=== PATIENT | female | born 1945 | race African-American/Black ===

== ENCOUNTER 2017-06-12 06:08 | Day surgery (SDC) | payer MEDICARE ==
[2017-06-11 11:18] VITALS: BMI 29.2
--- NOTE | 2017-06-12 06:17 | HP ---
SHORT STAY HISTORY AND PHYSICAL DATE OF ADMISSION: 06/12/2017 HISTORY OF PRESENT ILLNESS: A 71-year-old -[place] female with chronic GI symptoms. She comes with abdominal pain, abdominal bloating, and swelling. The patient's symptoms are worse after meals and lasts for several hours. Symptoms appear any time she eats. She has no history of nausea or vomiting. She has been taking pantoprazole and simethicone. However, the symptoms were unresolved. She recently started taking Dexilant. The patient comes for an EGD because of chronic dyspepsia, abdominal discomfort. ALLERGIES: None. MEDICAL ILLNESSES: 1. Hypertension. 2. Osteoarthritis. 3. Discoid lupus. 4. Chronic acid reflux. 5. Osteoporosis. PHYSICAL EXAMINATION: VITAL SIGNS: Pulse is 70, blood pressure 130/70. HEENT: Conjunctivae clear. CARDIOVASCULAR: First and second heart sounds normal. LUNGS: Clear to auscultation. ABDOMEN: Soft to palpate. Abdomen is tender over the epigastric area. There is no rebound or guarding. EXTREMITIES: Reveal no edema. ADMITTING DIAGNOSES: Chronic dyspepsia, abdominal discomfort. PLAN: EGD. MTDD
[2017-06-12] MEDS ORDERED: Lidocaine 1% PF 5 ML VIAL ONE (08:22)
--- NOTE | 2017-06-12 17:08 | OP ---
DATE OF PROCEDURE: 06/12/2017 OPERATIVE PROCEDURE: Esophagogastroduodenoscopy with biopsy. PREOPERATIVE DIAGNOSIS: A 71-year-old female with abdominal discomfort, abdominal bloating and swelling. This happens usually after meals. She has had these symptoms for the last s everal months. The patient is undergoing upper GI endoscopy. POSTOPERATIVE DIAGNOSES: 1. Gastric ulcer x2 over the gastric antrum with gastritis. 2. Gastric erosions. Otherwise, the exam was normal. PROCEDURE IN DETAIL: The patient was placed on her left lateral position and was given sedation by Anesthesia Department. A Pentax video gastroscope under direct vision was passed down the oropharyn x, past the gastroesophageal junction, into the stomach, and subsequently into the descending duoden um. The esophageal mucosa appeared normal. The GE junction, no pathology seen. The fundus and car maliha, no pathology seen. Over the gastric antrum, the patient was found to have gastric erosions, ga stritis, and also 2 ulcerations. The incisura angularis, no pathology seen. The gastric body, no l esions. The retroflexion failed to show any lesions in the fundus and cardia. The duodenal bulb, d escending duodenum, no pathology seen. Random biopsies from the descending duodenum to rule out lucia iac disease. The stomach was decompressed and the scope removed. DISCHARGE PLANNING: This is a 71-year-old female who came for the EGD because of c hronic dyspepsia and abdominal pain. The patient underwent EGD and was found to have gastric ulcer and gastritis. DISCHARGE RECOMMENDATIONS: 1. Start the patient on omeprazole 40 once a day. 2. Await gastric biopsy and the biopsy shows Helicobacter, treat accordingly.
== END 2017-06-12 09:30 | disposition home or self-care (01) ==
LOC: SDC 06:08
PROVIDERS: ATTEND Internal Medicine Gastroenterology
PROC: 0DB98ZX Excision of Duodenum, Via Natural or Artificial Opening Endoscopic, Diagnostic (ICD-10-PCS; principal; 2017-06-12)
DX: K29.50 Unspecified chronic gastritis without bleeding (principal); I10 Essential (primary) hypertension; M19.90 Unspecified osteoarthritis, unspecified site; M81.0 Age-related osteoporosis without current pathological fracture; K21.9 Gastro-esophageal reflux disease without esophagitis; L93.0 Discoid lupus erythematosus; Z79.899 Other long term (current) drug therapy; Z90.710 Acquired absence of both cervix and uterus; Z98.42 Cataract extraction status, left eye; Z98.41 Cataract extraction status, right eye; Z98.890 Other specified postprocedural states
CPT/HCPCS: 88305; 88312; J2001

== ENCOUNTER 2019-06-09 16:39 | Inpatient (IN) | payer MEDICARE ==
[~2019-06-09 16:39] MED LIST: ISOVUE-370 76%-LOCM 1 ML ONE
[2019-06-09 17:08] LABS: PTT 28.5 SEC (22.9-36.1)
[2019-06-09 17:09] LABS: INR-International Normal Ratio 1.1; Prothrombin Time 14.5 SEC (12.0-14.7)
[2019-06-09 17:14] LABS: Hemoglobin 15.7 g/dL (12.0-16.0); Mean Corpuscular HGB CONC 33.3 g/dL (32.0-36.0); Mean Corpuscular Hemoglobin 26.2 pg (27.0-31.0); Mean Corpuscular Volume 78.5 fL (78.0-98.0); Mean Platelet Volume 7.6 fL (7.4-10.4); Platelet Count 281 thou/uL (130-400); RBC Distribution Width 14.1 % (11.5-14.5)
[2019-06-09 17:25] LABS: ALT (SGPT) 30 U/L (8-55); AST (SGOT) 41 U/L (5-34); Albumin 4.7 g/dL (3.4-4.8); Alkaline Phosphatase 24 U/L (40-110); Anion Gap 17 mmol/L (10-20); BUN (Urea Nitrogen) 19 mg/dL (9.8-20.1); Bilirubin, Total 1.4 mg/dL (0.2-1.2); CK (CPK) 609 U/L (29-168); Calc. Creatinine Clearance 0 mL/min (70-130); Calcium 10.6 mg/dL (7.8-10.44); Carbon Dioxide 23 mmol/L (23-31); Chloride 102 mmol/L (98-107); Estimated GFR-MDRD 46; Globulin 2.8 g/dL (2.4-3.5); Glucose 89 mg/dL (83-110); Potassium 4.9 mmol/L (3.5-5.1); Protein, Total 7.5 g/dL (6.0-8.3); Sodium 137 mmol/L (136-145)
[2019-06-09 17:42] LABS: #Lymphocytes 1.4 thou/uL (1.20-3.40); #Monocytes 0.5 thou/uL (0.11-0.59); #Neutrophils 5.8 thou/uL (1.40-6.50); %Basophils 0.5 % (0.0-1.0); %Eosinophils 0.4 % (0.0-10.0); %Lymphocytes 17.7 % (21.0-51.0); %Monocytes 6.3 % (0.0-10.0); %Neutrophils 75.1 % (42.0-75.0); Band 1 % (5-11); Hypochromia SLIGHT = 6-15 cells (100X) (0-5/hpf); Lymphocytes 6 % (21-51); MDiff Complete? YES; Monocytes 5 % (0-10); Neutrophil 87 % (42-75); Platelet Morphology Comment Appears Adequate; Target Cells SLIGHT = 2-5 cells (100X) (0-1/hpf); White Blood Cell (WBC) Count 7.7 thou/uL (4.8-10.8)
[2019-06-09 17:52] LABS: Cardiac Risk 2.4 (Less than 4.5); Magnesium 2.1 mg/dL (1.6-2.6)
--- NOTE | 2019-06-09 17:54 | CT ---
CT HEAD WITHOUT CONTRAST: INDICATIONS: Stroke alert. Aphasia. Left-sided facial droop. COMPARISON: None. FINDINGS: The ventricles have normal size and position. There is abnormal lucency in the right basal ganglia involving the lentiform nucleus. This may repres ent acute or subacute lacunar infarct involving the right basal ganglia. There is no evidence of acute cortical infarct. There is no mass or hemorrhage. Sinuses and mastoids are clear. IMPRESSION: Abnormal lucency in the right basal ganglia concerning for acute or subacute basal ganglia infarct. Findings relayed to ER physician at 4:51 p.m. CODE DAVE POS: [facility]
[2019-06-09] MEDS ORDERED: Aspirin Chewable 81 MG TAB ONE (18:01)
--- NOTE | 2019-06-09 18:04 | CT ---
CTA HEAD: INDICATIONS: Stroke alert. Left-sided facial droop and aphasia. TECHNIQUE: Axial tomograms obtained with multiplanar reconstruction and 3D post processing following a CT angio protocol. FINDINGS: The intracranial internal carotid arteries are patent and symmetric. The anterior cerebral arteries a re patent and symmetric. The middle cerebral arteries are patent and symmetric. M2 and M3 branches ap pear symmetric. The basilar artery is patent. The posterior cerebral arteries appear symmetric. IMPRESSION: Unremarkable CTA head. CTA NECK: INDICATIONS: Stroke alert. Aphasia. Left facial droop. TECHNIQUE: Axial tomograms obtained with multiplanar reconstruction and 3D post processing. FINDINGS: No evidence of stenosis at the origin of the arch vessels. Both common carotid arteries are patent an d symmetric. Mild atherosclerotic change seen at the bulbs however no evidence of stenosis involving either exercise science internship al carotid artery. Vertebral arteries are patent and symmetric. IMPRESSION: Unremarkable CTA neck. POS: [facility]
--- NOTE | 2019-06-09 18:56 | RAD ---
PORTABLE CHEST: HISTORY: Fall. FINDINGS: The lungs appear clear. No infiltrate. The heart is mildly prominent but stable. IMPRESSION: No acute process. POS: [facility]
[2019-06-09 18:57] LABS: CKMB 4.6 ng/mL (0-6.6)
[2019-06-09] MEDS ORDERED: Carvedilol 3.125 MG TAB PO SCH (22:00)
[2019-06-09] MEDS ORDERED: Acetaminophen 325 MG TAB PO PRN (22:14)
[2019-06-09] MEDS ORDERED: Senokot S 8.6-50 MG TAB PO PRN (22:14)
[2019-06-09 23:59] LABS: Troponin I 0.276 ng/mL (< 0.028)
[2019-06-10] MEDS: Sodium Chloride 0.9% 1,000 ML IV SCH (01:42)
[2019-06-10 02:03] VITALS: BMI 27.6
--- NOTE | 2019-06-10 02:24 | HP ---
CHIEF COMPLAINT: Left-sided weakness and slurred speech. HISTORY OF PRESENT ILLNESS: The patient is a very pleasant 73-year-old female with a history of discoid lupus, also has a history of hypertension, who presents to the hospital with complaints of weakness to her left side and slurred speech x1 day. The patient stated that she woke up this morning, felt strange, felt unwell. When she tried to get up out of the bed, she fell on the floor. She states that she did hit her head on the table when she fell. She stated that throughout the day she tried to get herself up, however, she was unable to do so and kept falling multiple times. She stated that she did not feel the urge to call anybody. However, when her was unable to reach her after multiple calls, he asked someone to check in on her. At this time, the patient was found down on the floor. The patient's drove back 2 hours since he was out of town and then brought her into the hospital. PAST MEDICAL HISTORY: 1. She has a history of heart failure. 2. Mitral and tricuspid valve regurgitation. 3. She has a history of discoid lupus. 4. History of hypertension. PAST SURGICAL HISTORY: She had a hysterectomy, oophorectomy, bilateral cataract, left knee replacement, left rotator cuff repair x2, cholecystectomy. SOCIAL HISTORY: She denies any alcohol use or drug use. She currently is a full code. Lives with her . She is a former smoker, quit many years ago. REVIEW OF SYSTEMS: All negative except for the ones mentioned above in the HPI. ALLERGIES: NO KNOWN DRUG ALLERGIES. MEDICATIONS: She takes: 1. Lasix 40 mg daily. 2. Carvedilol 3.125 daily. 3. Spironolactone 50 mg daily. 4. Aspirin 81 mg daily. 5. Zyrtec 10 mg daily. 6. Plaquenil 200 mg. PHYSICAL EXAMINATION: VITAL SIGNS: Temperature 98.8, pulse of 88, blood pressure 137/89, 100% on room air. GENERAL: She is awake, alert, and oriented x3. Does not appear in any distress. HEENT: Normocephalic, atraumatic. No lymphadenopathy noted. Pupils are equal and reactive to light. CV: S1 and S2 present. No murmurs, rubs, or gallops. LUNGS: Clear to auscultation. No rhonchi or wheezes noted. ABDOMEN: Soft and nontender. Bowel sounds present x2. EXTREMITIES: 1+ edema to bilateral lower extremity. NEUROVASCULAR: She does have weakness on the left upper extremity and left lower extremity. She does have a tongue deviation to her left side. She does have a gaze to her right. SKIN: No cuts, lesions, or bruises noted. LABORATORY RESULTS: She did have a CT brain, which indicated abnormal lucency in the right basal ganglia concerning for acute or subacute basal ganglia infarct. Also, she had a CTA which did not indicate any acute findings that were for intervention. ASSESSMENT AND PLAN: The patient is a 73-year-old female who presents to the hospital with complaints of left-sided weakness and also slurred speech. 1. Acute stroke. We will get an MRI, but the patient does have knee replacement. I am not sure if that is compatible with MRI. We will continue her aspirin and we will add Plavix and also start her on statin. We will check a lipid panel in the morning. We will also get an echocardiogram and also consult Neurology. The patient has been educated that if this happens ever in the future to call 911. The patient thought that her symptoms would get better, however, they did not. 2. Hypertension. We will continue home medications. 3. Discoid lupus. We will continue her Plaquenil. 4. DVT prophylaxis. We will put the patient on enoxaparin. 5. Mildly elevated troponins. This could be secondary due to her stroke. We will continue to trend them. If they continue to worsen, may consult Cardiology. 6. Hypercalcemia. It could be possibly due to dehydration. We will continue to monitor and start her on some gentle hydration. 7. Chronic kidney disease stage 3. We will continue to monitor. 8. She does have an elevated CK. I will continue the hydration and we will check CK in the morning. Job ID: [id number]
[2019-06-10 05:35] LABS: #Basophils 0.1 thou/uL (0.0-0.2); #Eosinphils 0.2 thou/uL (0.0-0.7); #Lymphocytes 1.4 thou/uL (1.20-3.40); #Monocytes 0.6 thou/uL (0.11-0.59); #Neutrophils 5.1 thou/uL (1.40-6.50); %Basophils 0.8 % (0.0-1.0); %Eosinophils 2.6 % (0.0-10.0); %Lymphocytes 18.9 % (21.0-51.0); %Monocytes 8.4 % (0.0-10.0); %Neutrophils 69.4 % (42.0-75.0); Hemoglobin 14.7 g/dL (12.0-16.0); Mean Corpuscular HGB CONC 33.8 g/dL (32.0-36.0); Mean Corpuscular Hemoglobin 26.6 pg (27.0-31.0); Mean Corpuscular Volume 78.6 fL (78.0-98.0); Mean Platelet Volume 7.8 fL (7.4-10.4); Platelet Count 257 thou/uL (130-400); RBC Distribution Width 14.1 % (11.5-14.5); Red Blood Cell (RBC) Count 5.53 mill/uL (4.20-5.40); White Blood Cell (WBC) Count 7.4 thou/uL (4.8-10.8)
[2019-06-10 05:52] LABS: Anion Gap 14 mmol/L (10-20); BUN (Urea Nitrogen) 16 mg/dL (9.8-20.1); Calc. Creatinine Clearance 46 mL/min (70-130); Calcium 10.4 mg/dL (7.8-10.44); Carbon Dioxide 20 mmol/L (23-31); Cardiac Risk 2.6 (Less than 4.5); Chloride 107 mmol/L (98-107); Cholesterol 137 mg/dl (< 200 Desired); Estimated GFR-MDRD 55; Glucose 81 mg/dL (83-110); HDL Cholesterol 53 mg/dL (>60 Neg Risk); LDL Cholesterol, Calculated 74 mg/dL; Potassium 4.3 mmol/L (3.5-5.1); Sodium 137 mmol/L (136-145); Triglycerides 50 mg/dL (Less than 150)
[2019-06-10] MEDS ORDERED: Carvedilol 3.125 MG TAB PO SCH (08:00)
[2019-06-10] MEDS ORDERED: FLU VACC TS2019-20(65YR UP)/PF 180 MCG/0.5 ML SYRINGE IM ONE (09:00)
[2019-06-10] MEDS ORDERED: Prevnar 13-Val Conj/PF 0.5 ML SYRINGE IM ONE (09:00)
[2019-06-10] MEDS: Clopidogrel Bisulfate 75 MG TAB PO SCH (09:40)
[2019-06-10] MEDS: Aspirin 81 mg Enteric Coated Tablet PO SCH (09:41)
[2019-06-10] MEDS: Enoxaparin Sodium 40 MG/0.4 ML SYRINGE SC SCH (09:42)
[2019-06-10] MEDS: Loratadine 10 MG TAB PO SCH (09:42)
--- NOTE | 2019-06-10 12:55 | MRI ---
MRI BRAIN NONCONTRAST: 06/10/2019 HISTORY: A 73-year-old female with acute stroke. COMPARISON: None. FINDINGS: There is a confluent, moderate sized, approximately 3.5 x 2.8 cm region of T2 hyperintensity and stro ngly restricted diffusion involving the majority of the right basal ganglia and right caudate head. T here is deoxyhemoglobin occupying the central 75% of this lesion representing early hemorrhagic conve rsion (which may not necessarily be visible on CT). It minimally distorts the lateral aspect of the r ight frontal horn but otherwise the ventricles are normal in size and configuration. No midline shift . There are two small patchy foci of restricted diffusion and moderately hyperintense T2 signal in the right temporal lobe, one of them at the sylvian fissure - posterior operculum, and the other approxim ately 3 cm posterior to it at the right temporoparietal junction, representing additional infarctions involving cortex and subcortical white matter. These have not had any hemorrhagic transformation. No extraaxial fluid collection. IMPRESSION: 1. Acute infarction involving the right corpus striatum, of moderate size, with early hemorrhagic tra nsformation (which may or may not yet be visible on CT). Lenticulostriate branch territory of right m iddle cerebral artery. 2. Peripheral to that, there are two other smaller foci of cortical acute infarctions in the right mi ddle cerebral artery territory involving the right temporal lobe and right temporoparietal junction. CODE T JN R
--- NOTE | 2019-06-10 14:10 | PDOC.HOSPP ---
- Subjective Encounter Date: 06/10/19 Encounter Time: 14:09 Subjective: Able to walk today - Objective Vital Signs & Weight: Vital Signs (12 hours) Temp Pulse Pulse Pulse Resp BP BP 06/10/19 12:44 06/10/19 12:00 98.5 F 73 18 06/10/19 11:05 72 76 120/83 141/79 H 06/10/19 08:15 06/10/19 07:00 98.1 F 78 16 06/10/19 03:17 99 F 80 16 BP Pulse Ox 06/10/19 12:44 97 06/10/19 12:00 141/79 H 100 06/10/19 11:05 06/10/19 08:15 97 06/10/19 07:00 123/70 91 L 06/10/19 03:17 114/79 99 Weight Weight 146 lb 1.6 oz I&O: 06/09/19 06/10/19 06/11/19 06:59 06:59 06:59 Intake Total 50 Output Total 400 Balance -350 Result Diagrams: 06/10/19 05:11 06/10/19 05:11 Hospitalist ROS - Medication Medications: Active Medications Generic Name Dose Route Start Last Admin Trade Name Kevinq PRN Reason Stop Dose Admin Aspirin 81 mg 06/10/19 09:00 06/10/19 09:41 Ecotrin PO 81 mg DAILY PADMAJA Administration Cholecalciferol 4,000 units 06/10/19 09:00 06/10/19 09:41 Vitamin D3 PO 4,000 units DAILY PADMAJA Administration Clopidogrel Bisulfate 75 mg 06/10/19 09:00 06/10/19 09:40 Plavix PO 75 mg DAILY PADMAJA Administration Enoxaparin Sodium 40 mg 06/10/19 09:00 06/10/19 09:42 Lovenox SC 40 mg 0900 PADMAJA Administration Sodium Chloride 1,000 mls @ 50 mls/hr 06/09/19 22:30 06/10/19 01:42 Normal Saline 0.9% IV 1,000 mls .Q20H PADMAJA Administration Loratadine 10 mg 06/10/19 09:00 06/10/19 09:42 Claritin PO 10 mg DAILY PADMAJA Administration - Exam General Appearance: NAD, awake alert, ill appearing Eye: PERRL, anicteric sclera, scleral icterus ENT: normocephalic atraumatic, no oropharyngeal lesions, moist mucosa, dry oral mucosa Neck: supple, symmetric, no JVD, no thyromegaly, no lymphadenopathy, no carotid bruit, JVD Heart: RRR, no murmur, no gallops, no rubs, normal peripheral pulses, irregular , diminshed peripheral pulses, murmur present, II/IV, III/IV Respiratory: CTAB, no wheezes, no rales, no ronchi, normal chest expansion, no tachypnea, normal percussion, rales, rhonchi, tachypneic, wheezes Gastrointestinal: soft, non-tender, non-distended, normal bowel sounds, no palpable masses, no hepatomegaly, no splenomegaly, no bruit, no guarding, no rigidity, tender to palpation, distended, diminished bowl sounds, voluntary guarding Extremities: no cyanosis, no clubbing, no edema, 1+ LE edema, 2+ LE edema, clubbing Skin: normal turgor, no lesions, no rashes, tenting Neurological: cranial nerve grossly intact, normal sensation to touch, no weakness, no focal deficits, no new deficit, facial droop, hemiplegia, speech deficit, vision deficit Musculoskeletal: normal tone, normal strength, no muscle wasting, generalized weakness, diffuse muscle atrophy Hosp A/P (1) CVA (cerebral vascular accident) Code(s): I63.9 - CEREBRAL INFARCTION, UNSPECIFIED Status: Acute Qualifiers: CVA mechanism: embolism - Plan old records reviewed/req, plan discussed w/ family, PT/OT, social services coordinator
[2019-06-10] MEDS: Rosuvastatin 20 MG TAB PO SCH (20:13)
--- NOTE | 2019-06-10 23:04 | CON ---
DATE OF CONSULTATION: 06/10/2019 CONSULTING PHYSICIAN: Hospitalist Service. IMPRESSION: 1. Acute right MCA stroke. 2. History of congestive heart failure. 3. Aspirin failure. PLAN: 1. Continue Plavix and Crestor along with her aspirin. 2. Consider anticoagulation if her ejection fraction is below 25%. 3. Possible need for inpatient rehab. HISTORY OF PRESENT ILLNESS: Ms. Magdaleno is a 73-year-old black female with a past history of hypertension, lupus, congestive heart failure, who presented with acute weakness on the left side. She initially had a CT angiogram, which was unremarkable. Her CT of the brain showed an acute area of ischemia in the right basal ganglia region. A followup MRI confirmed somewhat larger area of ischemic injury with some particular hemorrhage present as well. She had an echocardiogram done today with results are pending. Her cholesterol ratio was 2.4. The rest of her lab work was relatively unremarkable. She was able to walk with a roller walker for about 80 feet with some assistance. She passed her swallowing study as well. PAST MEDICAL HISTORY: As listed above. ALLERGIES: NONE. SOCIAL HISTORY: No tobacco use. FAMILY HISTORY: Noncontributory. REVIEW OF SYSTEMS: Ten-system review of systems is otherwise negative. PHYSICAL EXAMINATION: GENERAL: She is a well-nourished elderly woman, sitting up in bed, in no distress. VITAL SIGNS: Stable with pulse rate in the 70s. She is in a normal sinus rhythm. HEENT: Pupils equal. Conjunctivae clear. Oropharynx clear. NECK: Supple. No lymphadenopathy. EXTREMITIES: No cyanosis. NEUROLOGIC: She was alert and cooperative. Her speech was mildly dysarthric. She had a subtle left facial droop. She had partial antigravity strength in the left arm and leg. Her movements were sluggish. Her sensation was intact. No abnormal movements were seen. SUMMARY: A 73-year-old woman with an acute stroke and some residual left-sided weakness, apparently is improving somewhat. Workup is nearly complete. I agree with current management. Job ID: [id number]
[2019-06-11] MEDS: Aspirin 81 mg Enteric Coated Tablet PO SCH (09:13)
[2019-06-11] MEDS: Enoxaparin Sodium 40 MG/0.4 ML SYRINGE SC SCH (09:13)
[2019-06-11] MEDS: Loratadine 10 MG TAB PO SCH (09:13)
[2019-06-11] MEDS: Clopidogrel Bisulfate 75 MG TAB PO SCH (09:13)
[2019-06-11] MEDS: Sodium Chloride 0.9% 1,000 ML IV SCH (09:55)
--- NOTE | 2019-06-11 11:33 | PDOC.HOSPP ---
- Subjective Encounter Date: 06/11/19 Encounter Time: 11:32 Subjective: The patiwent wishes to go home with rehab/home health. refusing for in patient rehab - Objective Vital Signs & Weight: Vital Signs (12 hours) Temp Pulse Pulse Pulse Resp BP BP 06/11/19 09:35 86 80 114/77 115/78 06/11/19 07:53 98.0 F 75 18 06/11/19 04:00 98.9 F 80 16 06/11/19 00:00 98.8 F 84 16 BP Pulse Ox 06/11/19 09:35 06/11/19 07:53 112/62 92 L 06/11/19 04:00 109/71 97 06/11/19 00:00 118/81 98 Weight Admit Weight 146 lb 1.6 oz Weight 146 lb 1.6 oz I&O: 06/10/19 06/11/19 06/12/19 06:59 06:59 06:59 Intake Total 50 996 Output Total 400 Balance -350 996 Result Diagrams: 06/10/19 05:11 06/10/19 05:11 Hospitalist ROS - Medication Medications: Active Medications Generic Name Dose Route Start Last Admin Trade Name Freq PRN Reason Stop Dose Admin Aspirin 81 mg 06/10/19 09:00 06/11/19 09:13 Ecotrin PO 81 mg DAILY PADMAJA Administration Cholecalciferol 4,000 units 06/10/19 09:00 06/11/19 09:13 Vitamin D3 PO 4,000 units DAILY PADMAJA Administration Clopidogrel Bisulfate 75 mg 06/10/19 09:00 06/11/19 09:13 Plavix PO 75 mg DAILY PADMAJA Administration Enoxaparin Sodium 40 mg 06/10/19 09:00 06/11/19 09:13 Lovenox SC 40 mg 0900 PADMAJA Administration Sodium Chloride 1,000 mls @ 50 mls/hr 06/09/19 22:30 06/11/19 09:55 Normal Saline 0.9% IV 1,000 mls .Q20H PADMAJA Administration Loratadine 10 mg 06/10/19 09:00 06/11/19 09:13 Claritin PO 10 mg DAILY PADMAJA Administration Rosuvastatin Calcium 40 mg 06/10/19 21:00 06/10/19 20:13 Crestor PO 40 mg HS PADMAJA Administration - Exam General Appearance: NAD, awake alert, ill appearing Eye: PERRL, anicteric sclera, scleral icterus ENT: normocephalic atraumatic, no oropharyngeal lesions, moist mucosa, dry oral mucosa Neck: supple, symmetric, no JVD, no thyromegaly, no lymphadenopathy, no carotid bruit, JVD Heart: RRR, no murmur, no gallops, no rubs, normal peripheral pulses, irregular , diminshed peripheral pulses, murmur present, II/IV, III/IV Respiratory: CTAB, no wheezes, no rales, no ronchi, normal chest expansion, no tachypnea, normal percussion, rales, rhonchi, tachypneic, wheezes Extremities: no cyanosis, no clubbing, no edema, 1+ LE edema, 2+ LE edema, clubbing Hosp A/P (1) CVA (cerebral vascular accident) Code(s): I63.9 - CEREBRAL INFARCTION, UNSPECIFIED Status: Acute Qualifiers: CVA mechanism: embolism - Plan plan discussed w/ family, PT/OT, social work therapist (d/c planning to home with HH)
[2019-06-11] MEDS: Rosuvastatin 20 MG TAB PO SCH (21:22)
[2019-06-11] MEDS ORDERED: diphenhydrAMINE 25 MG CAP PO PRN (21:57)
[2019-06-11 22:38] LABS: ALT (SGPT) 22 U/L (8-55); AST (SGOT) 31 U/L (5-34); Albumin 3.7 g/dL (3.4-4.8); Alkaline Phosphatase 25 U/L (40-110); Bilirubin, Direct 0.5 mg/dL (0.1-0.3); Bilirubin, Total 0.9 mg/dL (0.2-1.2); Lipase 41 U/L (8-78); Protein, Total 6.4 g/dL (6.0-8.3)
[2019-06-12] MEDS: Enoxaparin Sodium 40 MG/0.4 ML SYRINGE SC SCH (09:22)
[2019-06-12] MEDS: Loratadine 10 MG TAB PO SCH (09:23)
[2019-06-12] MEDS: Aspirin 81 mg Enteric Coated Tablet PO SCH (09:23)
[2019-06-12] MEDS: Clopidogrel Bisulfate 75 MG TAB PO SCH (09:23)
--- NOTE | 2019-06-12 11:43 | PDOC.HOSPP ---
- Subjective Encounter Date: 06/12/19 Encounter Time: 11:42 - Objective Vital Signs & Weight: Vital Signs (12 hours) Temp Pulse Resp BP Pulse Ox 06/12/19 07:41 99.2 F 74 16 120/79 96 06/12/19 03:47 98.7 F 83 16 111/77 97 06/12/19 00:00 97 Weight Admit Weight 146 lb 1.6 oz Weight 146 lb 1.6 oz I&O: 06/11/19 06/12/19 06/13/19 06:59 06:59 06:59 Intake Total 996 930 Balance 996 930 Result Diagrams: 06/10/19 05:11 06/10/19 05:11 Hospitalist ROS - Medication Medications: Active Medications Generic Name Dose Route Start Last Admin Trade Name Freq PRN Reason Stop Dose Admin Aspirin 81 mg 06/10/19 09:00 06/12/19 09:23 Ecotrin PO 81 mg DAILY PADMAJA Administration Cholecalciferol 4,000 units 06/10/19 09:00 06/12/19 09:23 Vitamin D3 PO 4,000 units DAILY PADMAJA Administration Clopidogrel Bisulfate 75 mg 06/10/19 09:00 06/12/19 09:23 Plavix PO 75 mg DAILY PADMAJA Administration Diphenhydramine HCl 25 mg 06/11/19 21:57 06/11/19 22:17 Benadryl PO 25 mg Q4H PRN Administration Itching Enoxaparin Sodium 40 mg 06/10/19 09:00 06/12/19 09:22 Lovenox SC 40 mg 0900 PADMAJA Administration Sodium Chloride 1,000 mls @ 50 mls/hr 06/09/19 22:30 06/11/19 09:55 Normal Saline 0.9% IV 1,000 mls .Q20H PADMAJA Administration Loratadine 10 mg 06/10/19 09:00 06/12/19 09:23 Claritin PO 10 mg DAILY PADMAJA Administration Rosuvastatin Calcium 40 mg 06/10/19 21:00 06/11/19 21:22 Crestor PO 40 mg HS PADMAJA Administration - Exam General Appearance: NAD, awake alert, ill appearing Eye: PERRL, anicteric sclera, scleral icterus ENT: normocephalic atraumatic, no oropharyngeal lesions, moist mucosa, dry oral mucosa Neck: supple, symmetric, no JVD, no thyromegaly, no lymphadenopathy, no carotid bruit, JVD Heart: RRR, no murmur, no gallops, no rubs, normal peripheral pulses, irregular , diminshed peripheral pulses, murmur present, II/IV, III/IV Respiratory: CTAB, no wheezes, no rales, no ronchi, normal chest expansion, no tachypnea, normal percussion, rales, rhonchi, tachypneic, wheezes Gastrointestinal: soft, non-tender, non-distended, normal bowel sounds, no palpable masses, no hepatomegaly, no splenomegaly, no bruit, no guarding, no rigidity, tender to palpation, distended, diminished bowl sounds, voluntary guarding Extremities: no cyanosis, no clubbing, no edema, 1+ LE edema, 2+ LE edema, clubbing Skin: normal turgor, no lesions, no rashes, tenting Neurological: cranial nerve grossly intact, normal sensation to touch, no weakness, no focal deficits, no new deficit, facial droop, hemiplegia, speech deficit, vision deficit Hosp A/P (1) CVA (cerebral vascular accident) Code(s): I63.9 - CEREBRAL INFARCTION, UNSPECIFIED Status: Acute Qualifiers: CVA mechanism: embolism (2) HTN (hypertension), benign Code(s): I10 - ESSENTIAL (PRIMARY) HYPERTENSION Status: Acute - Plan PT/OT, neonatal social worker, speech therapy, respiratory therapy (add procardia xl 30 mg to regulate the BP better. Ambulate, D?C planning is home with HH), DVT proph w/lovenox
--- NOTE | 2019-06-12 11:46 | PDOC.EVN ---
Event Note - Event Note Event Note: Left sided weakness imroved significantly, slurred speech imroved as well. The patient is good spirits.
[2019-06-12] MEDS: Sodium Chloride 0.9% 1,000 ML IV SCH (12:52)
[2019-06-12] MEDS: Rosuvastatin 20 MG TAB PO SCH (21:50)
[2019-06-13 01:29] LABS: Anion Gap 13 mmol/L (10-20); BUN (Urea Nitrogen) 14 mg/dL (9.8-20.1); Calc. Creatinine Clearance 50 mL/min (70-130); Calcium 9.4 mg/dL (7.8-10.44); Carbon Dioxide 21 mmol/L (23-31); Chloride 108 mmol/L (98-107); Estimated GFR-MDRD 61; Glucose 82 mg/dL (83-110); Potassium 4.2 mmol/L (3.5-5.1); Sodium 138 mmol/L (136-145)
[2019-06-13] MEDS: NIFEdipine XL 30 MG TAB PO SCH (09:26)
[2019-06-13] MEDS: Aspirin 81 mg Enteric Coated Tablet PO SCH (09:27)
[2019-06-13] MEDS: Clopidogrel Bisulfate 75 MG TAB PO SCH (09:27)
[2019-06-13] MEDS: Enoxaparin Sodium 40 MG/0.4 ML SYRINGE SC SCH (09:27)
[2019-06-13] MEDS: Loratadine 10 MG TAB PO SCH (09:27)
--- NOTE | 2019-06-13 10:39 | PDOC.HOSPP ---
- Subjective Encounter Date: 06/13/19 Encounter Time: 10:38 Subjective: Doing okay, says her EF was 60% before, but dropped to 255 this visit - Objective Vital Signs & Weight: Vital Signs (12 hours) Temp Pulse Resp BP BP Pulse Ox 06/13/19 09:26 80 126/79 06/13/19 07:51 98.6 F 80 12 126/79 97 06/13/19 03:45 98.2 F 73 16 108/70 97 06/13/19 00:00 97.6 F 76 16 120/79 98 Weight Admit Weight 146 lb 1.6 oz Weight 143 lb 12.8 oz I&O: 06/12/19 06/13/19 06/14/19 06:59 06:59 06:59 Intake Total 930 840 Output Total 600 Balance 930 240 Result Diagrams: 06/10/19 05:11 06/13/19 00:57 Hospitalist ROS - Medication Medications: Active Medications Generic Name Dose Route Start Last Admin Trade Name Freq PRN Reason Stop Dose Admin Aspirin 81 mg 06/10/19 09:00 06/13/19 09:27 Ecotrin PO 81 mg DAILY PADMAJA Administration Cholecalciferol 4,000 units 06/10/19 09:00 06/13/19 09:27 Vitamin D3 PO 4,000 units DAILY PADMAJA Administration Clopidogrel Bisulfate 75 mg 06/10/19 09:00 06/13/19 09:27 Plavix PO 75 mg DAILY PADMAJA Administration Diphenhydramine HCl 25 mg 06/11/19 21:57 06/11/19 22:17 Benadryl PO 25 mg Q4H PRN Administration Itching Enoxaparin Sodium 40 mg 06/10/19 09:00 06/13/19 09:27 Lovenox SC 40 mg 0900 PADMAJA Administration Loratadine 10 mg 06/10/19 09:00 06/13/19 09:27 Claritin PO 10 mg DAILY PADMAJA Administration Nifedipine 30 mg 06/13/19 09:00 06/13/19 09:26 Procardia Xl PO 30 mg DAILY PADMAJA Administration Rosuvastatin Calcium 40 mg 06/10/19 21:00 06/12/19 21:50 Crestor PO 40 mg HS PADMAJA Administration - Exam General Appearance: NAD, awake alert, ill appearing Eye: PERRL, anicteric sclera, scleral icterus ENT: normocephalic atraumatic, no oropharyngeal lesions, moist mucosa, dry oral mucosa Neck: supple, symmetric, no JVD, no thyromegaly, no lymphadenopathy, no carotid bruit, JVD Heart: RRR, no murmur, no gallops, no rubs, normal peripheral pulses, irregular , diminshed peripheral pulses, murmur present, II/IV, III/IV Respiratory: CTAB, no wheezes, no rales, no ronchi, normal chest expansion, no tachypnea, normal percussion, rales, rhonchi, tachypneic, wheezes Gastrointestinal: soft, non-tender, non-distended, normal bowel sounds, no palpable masses, no hepatomegaly, no splenomegaly, no bruit, no guarding, no rigidity, tender to palpation, distended, diminished bowl sounds, voluntary guarding Extremities: no cyanosis, no clubbing, no edema, 1+ LE edema, 2+ LE edema, clubbing Skin: normal turgor, no lesions, no rashes, tenting Neurological: cranial nerve grossly intact, normal sensation to touch, no weakness, no focal deficits, no new deficit, facial droop, hemiplegia, speech deficit, vision deficit Musculoskeletal: normal tone, normal strength, no muscle wasting, generalized weakness, diffuse muscle atrophy Psychiatric: normal affect, normal behavior, A&O x 3, oriented to person, oriented to place, oriented to time, not oriented, flat affect, somnolent, lethargic Hosp A/P (1) CVA (cerebral vascular accident) Code(s): I63.9 - CEREBRAL INFARCTION, UNSPECIFIED Status: Acute Qualifiers: CVA mechanism: embolism (2) HTN (hypertension), benign Code(s): I10 - ESSENTIAL (PRIMARY) HYPERTENSION Status: Acute (3) CHF (congestive heart failure) Code(s): I50.9 - HEART FAILURE, UNSPECIFIED Status: Acute Qualifiers: Heart failure chronicity: chronic Plan: EF droppeed to 25%, consult cardiology. Dc planning after cardiac evaluation
--- NOTE | 2019-06-13 15:52 | PQF ---
ALBIN BAIRES JASON BAIRD [id number] [place] [id number] CLINICAL DOCUMENTATION IMPROVEMENT CLARIFICATION FORM: ICD-10 Updated PLEASE DO AN ADDENDUM TO THE PROGRESS NOTE WITH ANY DOCUMENTATION UPDATES OR ADDITIONS AND CARRY THROUGH TO DC SUMMARY. THANK YOU. DATE: 06/13/2019 ATTN:DR. Emiliano QUIJANO Please exercise your independent, professional judgment in responding to the clarification form. Clinical indicators are provided on the bottom of this form for your review. Please check appropriate box(s): HEART FAILURE: A. ACUITY [ ] Acute [ ] Acute on Chronic [ X ] Chronic B. TYPE [ X ] Systolic / HFrEF [ ] Diastolic / HFpEF [ ] Combined Systolic / Diastolic [ ] Hypertensive Heart and Kidney disease [ ] Hypertensive Heart Disease [ ] Hypertensive Kidney Disease [ ] Other diagnosis [ ] Unable to determine In addition, please specify: Present on Admission (POA): [ ] Yes [ X ] No [ ] Unable to determine For continuity of documentation, please document condition throughout progress notes and discharge summary. Thank You. CLINICAL INDICATORS - SIGNS / SYMPTOMS / LABS / RESULTS AND LOCATION IN EMR 06/10 H&P ( [facility] ) PAST MEDICAL HISTORY: SHE HAS A HISTORY OF HEART FAILURE 06/11 CONSULT ( [facility]) IMPRESSION: 2) HISTORY OF CONGESTIVE GREEN FAILURE 06/12 ECHO: EF IS 25-30% , RESTRICTIVE FILLING TIME, MODERATE TRICUSPID REGURGITATION, MODERATE MITRAL REGURGITATION IS PRESENT, LEFT ATRIUM IS MILD TO MODERATELY DILATED, MODERATELY ENLARGED RIGHT ATRIUM IS PRESENT, MILD PULMONIC REGURGITATION PRESENT RISK: HX CHF , HYPERTENSION (H&P/[facility]) 06/10 TREATMENTS: CXR 06/09 ECHO 06/12 THANK YOU! BEATA (This form is maintained as a part of the permanent medical record) 2014 [employer] All Rights Reserved [email or web address] [phone] [email or web address]
--- NOTE | 2019-06-13 18:18 | CON ---
DATE OF CONSULTATION: 06/13/2019 INDICATION FOR CONSULTATION: A 73-year-old female with new onset systolic heart failure with evidence of probable TIA or CVA. This is a very unfortunate woman, I have followed for several years. She is 73 years old now. She was at home the other day and actually she drove her up to dialysis on Sunday. She drove back. She was fine. On Sunday, she was fine, then on Sunday morning, she woke up. She was not able to stand. She kept falling and she knows her speech was slurred and she was drooling. The next door neighbor was called by the when she did not answer the phone. She checked on her and wanted to call 911. The patient refused. In the intervention, when the arrived home, she was still not able to adequately ambulate and her speech was also not back to normal, so he took her to the emergency room. Since being in the emergency room, she has been here, she has had some improvement apparently, but is still not back to her baseline. She does have a history of severe mitral tricuspid valve regurgitation. She was sent to [facility] for evaluation of possible mitral valve repair, but this was not done, in which she has been treated by medical management. It was felt that she was not yet a good candidate for the procedure, who did not feel to be necessary yet and she has done very well being on the Aldactone. At this time, she is not having any significant shortness of breath recently. She did have some mild edema, but not compared to what she had. She denies any significant abdominal bloating. Her echocardiogram earlier in the year showed a normal ejection fraction, but with zpmjbwaf-[id number] mitral and tricuspid valve regurgitation, this was back in August of 2018. She had an echocardiogram repeated here two days ago and this was noted to have significant decrease in ejection fraction. Ejection fraction by the evaluation shows ejection fraction about 25% to 30%, uncertain etiology. She still continues to have moderate mitral and tricuspid valve regurgitation. She also had left and right atrial dilatation. I do not have any indication that she has any coronary artery disease in the past. 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 She has been followed by Dr. Redding. Her renal function has been relatively stable. As far as her other past medical history, her last echo in August 2018 showed just actually mild left atrial dilatation with fglyjeyw-[id number]-lgqlrp left ventricular hypertrophy with severe mitral valve regurgitation, udpzilac-iq-pwgnjj tricuspid valve regurgitation. She also had some history in the past with some pulmonary hypertension. At this time, she appears to be relatively comfortable, but she still has some problems with her speech a little bit. She thinks it was pretty much back to normal when I see her, but she is somewhat having a flat affect, which is not her normal. PAST MEDICAL HISTORY: Her other past medical history is relatively unremarkable except for the discoid lupus. SOCIAL HISTORY: She is . She has children, who are alive and well. She has no alcohol or tobacco abuse. FAMILY HISTORY: Her family history is noncontributory at this time. Her mother is still alive and she brings her to the office on occasion. MEDICATIONS: Prior to admission included; 1. Plaquenil. 2. Vitamin B. 3. Vitamin D3. 4. Cetirizine. 5. Furosemide 40 mg a day. 6. Aldactone, she was taking 25 mg in the morning and 50 mg in the evening. 7. Coreg 3.125 mg twice a day as well as aspirin 81 mg a day. ALLERGIES: SHE IS ALLERGIC TO CEFAZOLIN. REVIEW OF SYSTEMS: She mainly complains of problems upon the acute, which put in the note of the present history of present illness. She denies any GI or complaints. Musculoskeletal, only until happened on Sunday, but otherwise she complains of some mild left lower extremity edema. She has undergone a knee replacement also. She had mild edema of the right not the left and she also has had right knee replacement. As far as any other problems in the review of systems, she did not have any complaints. PHYSICAL EXAMINATION: GENERAL: Reveals a well-developed, well-nourished female. She is alert. She is oriented. VITAL SIGNS: Her blood pressure is 115/84, temperature is 98.7, heart rate is 88, respiratory rate 16, and O2 saturation 97%. HEENT: Reveals the head to be normocephalic and atraumatic. Carotid pulses are present. I did not hear any significant bruits. CHEST: Clear to auscultation without rales, rhonchi, or wheezing, CARDIOVASCULAR: Reveals a regular rate and rhythm at this time. She has normal S1 and S2. I cannot hear an S3 nor an S4 nor did I hear any significant murmurs, heaves, thrills, bruits, or rubs. She has a very soft systolic murmur at the apex less than what would be expected with someone with fmsbfnkh-er-httxme mitral valve regurgitation with very soft. ABDOMEN: Soft and nontender. I did not detect any ascites today. EXTREMITIES: Showed no clubbing or cyanosis. She has mild right lower extremity edema even less than 1+ and also involving the right foot. Pedal pulses are present. NEUROLOGICAL: She does appear to be as noted, somewhat flat affect, but I did not notice any gross focal motor deficits. She did have an MRI. ASSESSMENT AND PLAN: 1. Acute infarction involving the right corpus striatum moderate-size with some early hemorrhagic transformation. Other than that, she has also two small areas in the right in the area of the right middle cerebral artery territory, which may indicate some areas of small infarctions. From a cardiac standpoint, she had an echocardiogram performed, which showed decrease in left ventricular systolic function. This is a new finding for her. We will repeat the echo in 4 to 5 days. It may be due to the neurological event that has happened. She did have elevated CKs; however, she was lying on the floor for many hours. Apparently, her cardiac enzymes are troponin I is indeterminate but most likely this is associated with a high CK and does not indicate myocardial infarction. Certainly, we could consider this to be a type 2 agu-ZI-fstejlp elevation myocardial infarction. 2. History of discoid lupus: This appears to be under stable control at this time. 3. Chronic kidney disease: Given her chronic kidney disease, if she has worsening of her creatinine, we will ask Dr. Redding to see the patient. If she starts developing more ascites, we will need to reinstate her Aldactone. Otherwise, from a cardiac standpoint, other than the ejection fraction being decrease, she is stable. The EKG did not show any acute ST-segment changes. She did have decreased R-wave progression in V1 through V3 and she has small Q-waves in leads III and AVF, but no Q-waves noted in lead two. At this time. We will continue to follow her very carefully with you. I do not make medication changes at this time. Her blood pressure is stable on the present medications. She has been given Lasix. We will need to follow the creatinine, but certainly we will keep in mind that she may need to be placed on Aldactone before as this had significant improvement in her overall ascites that she had developed in the past. Job ID: [id number]
[2019-06-13] MEDS: Rosuvastatin 20 MG TAB PO SCH (20:33)
[2019-06-14] MEDS: Clopidogrel Bisulfate 75 MG TAB PO SCH (09:11)
[2019-06-14] MEDS: Aspirin 81 mg Enteric Coated Tablet PO SCH (09:11)
[2019-06-14] MEDS: Loratadine 10 MG TAB PO SCH (09:11)
[2019-06-14] MEDS: Enoxaparin Sodium 40 MG/0.4 ML SYRINGE SC SCH (09:11)
[2019-06-14] MEDS: NIFEdipine XL 30 MG TAB PO SCH (09:12)
--- NOTE | 2019-06-14 11:16 | PDOC.CPN ---
- Subjective Date: 06/14/19 Time: 11:22 Interval history: The pt seen and examined. No overnight events. No cardiac complaints. - Objective Allergies/Adverse Reactions: Allergies Allergy/AdvReac Type Severity Reaction Status Date / Time cefazolin [From [facility]] Allergy Unknown Verified 06/10/19 01:59 Visit Medications: Current Medications Acetaminophen (Tylenol) 650 mg PO Q4H PRN PRN Reason: Headache/Fever/Mild Pain (1-3) Aspirin (Ecotrin) 81 mg PO DAILY [facility] Last Admin: 06/14/19 09:11 Dose: 81 mg Cholecalciferol (Vitamin D3) 4,000 units PO DAILY [facility] Last Admin: 06/14/19 09:11 Dose: 4,000 units Clopidogrel Bisulfate (Plavix) 75 mg PO DAILY [facility] Last Admin: 06/14/19 09:11 Dose: 75 mg Diphenhydramine HCl (Benadryl) 25 mg PO Q4H PRN PRN Reason: Itching Last Admin: 06/11/19 22:17 Dose: 25 mg Enoxaparin Sodium (Lovenox) 40 mg SC 0900 [facility] Last Admin: 06/14/19 09:11 Dose: 40 mg Loratadine (Claritin) 10 mg PO DAILY [facility] Last Admin: 06/14/19 09:11 Dose: 10 mg Nifedipine (Procardia Xl) 30 mg PO DAILY [facility] Last Admin: 06/14/19 09:12 Dose: 30 mg Rosuvastatin Calcium (Crestor) 40 mg PO HS [facility] Last Admin: 06/13/19 20:33 Dose: 40 mg Senna/Docusate Sodium (Senokot S) 2 tab PO BID PRN PRN Reason: Constipation Sodium Chloride (Flush - Normal Saline) 10 ml IVF PRN PRN PRN Reason: Saline Flush Vital Signs & Weight: Vital Signs Temp Pulse Resp BP BP Pulse Ox 06/14/19 09:12 83 101/72 06/14/19 07:55 98.4 F 81 16 101/72 94 L 06/14/19 04:00 97.9 F 86 16 95/60 100 06/14/19 00:00 97.5 F L 78 16 110/73 99 Admit Weight 146 lb 1.6 oz Weight 144 lb 8 oz - Physical Exam General: alert & oriented x3 Neck: supple neck Cardiac: regular rate and rhythm, S1/S2 Lungs: clear to auscultation Abdomen: unremarkable Skin: clear Musculoskeletal: normal range of motion - Labs Result Diagrams: 06/10/19 05:11 06/13/19 00:57 Troponin/CKMB CK-MB (CK-2) 4.6 ng/mL (0-6.6) 06/09/19 16:51 Troponin I 0.276 ng/mL (< 0.028) H 06/09/19 23:19 - Telemetry Sinus rhythms and dysrhythmias: sinus rhythm - Assessment/Plan Assessment/Plan: 1. Rt Hemorrhagic CVA - still mildly dysphagia, but able to walk without any support; 2. Decreased EF from 60% to 25-30% on 06/12/2019 - stable with RA, no edema or ABD bloating; will stop Nifidipine and resume Coreg 3.125mg BID for HTN and hx of CHF 3. HTN - will stop Nifidipine and resume Coreg 3.125mg BID for HTN and hx of CHF 4. CKD - stable 5. Discoid Lupus MAR reviewed * Echo on 06/12/2019 with EF 25-30%, grade III dd, mild LVH, mild-mod dilated LA , mild ERA, mod MR and TR, and mild NC * From Cardiac standpoint, the pt is stable to d/c home. The pt already has an appt with Dr Pop this coming Sunday with Echo. Pt. seen and eval. by me. She is in a little better spirits today and feels better. Speech is better. More engaging than yesterday. I agree with the A/P by the SOLUTION PROFESSIONAL. Chest clear. RRR with occasional ectopy. Hopefully the decr. EF is a manifestation of the neurologic event. Plan to repeat echo in next 1-2 weeks.
[2019-06-14 12:00] VITALS: BP 114/71; TEMP 97.8
[2019-06-14] MEDS ORDERED: Carvedilol 3.125 MG TAB PO SCH (17:00)
== END 2019-06-14 15:30 | disposition home health service (06) | DRG 64 ==
LOC: ERS 16:39 → ERHOLD 18:21 → 2SE 06-10 00:58
PROVIDERS: ADMIT Family Medicine; ATTEND Family Medicine
DX: I63.411 Cerebral infarction due to embolism of right middle cerebral artery (principal); I61.1 Nontraumatic intracerebral hemorrhage in hemisphere, cortical; G81.94 Hemiplegia, unspecified affecting left nondominant side; I50.22 Chronic systolic (congestive) heart failure; I13.0 Hypertensive heart and chronic kidney disease with heart failure and stage 1 through stage 4 chronic kidney disease, or unspecified chronic kidney disease; R47.81 Slurred speech; N18.3 Chronic kidney disease, stage 3 (moderate); L93.0 Discoid lupus erythematosus; E83.52 Hypercalcemia; R13.10 Dysphagia, unspecified; R29.704 NIHSS score 4; Z96.652 Presence of left artificial knee joint; Z23 Encounter for immunization; Z88.1 Allergy status to other antibiotic agents; Z79.899 Other long term (current) drug therapy; Z79.82 Long term (current) use of aspirin
CPT/HCPCS: 36415; 70450; 70496; 70498; 70551; 71045; 80048; 80053; 80061; 80076; 82550; 82553; 83690; 83735; 84484; 85025; 85610; 85730; 90471; 90662; 93005; 93306; G0008; J1650; Q0163; Q9966

== ENCOUNTER 2019-07-12 05:35 | Inpatient (IN) | payer MEDICARE ==
[2019-07-12] MEDS ORDERED: Pantoprazole 40 MG VIAL ONE (06:30)
[2019-07-12 06:33] LABS: INR-International Normal Ratio 1.1; PTT 32.3 SEC (22.9-36.1); Prothrombin Time 14.1 SEC (12.0-14.7)
[2019-07-12 06:34] LABS: #Eosinphils 0.3 thou/uL (0.0-0.7); #Lymphocytes 1.4 thou/uL (1.20-3.40); #Monocytes 0.5 thou/uL (0.11-0.59); #Neutrophils 4.9 thou/uL (1.40-6.50); %Basophils 0.2 % (0.0-1.0); %Eosinophils 4.1 % (0.0-10.0); %Lymphocytes 19.4 % (21.0-51.0); %Monocytes 7.2 % (0.0-10.0); %Neutrophils 69.1 % (42.0-75.0); Hemoglobin 15.6 g/dL (12.0-16.0); Mean Corpuscular HGB CONC 34.7 g/dL (32.0-36.0); Mean Corpuscular Hemoglobin 27.4 pg (27.0-31.0); Mean Platelet Volume 7.8 fL (7.4-10.4); Platelet Count 268 thou/uL (130-400); RBC Distribution Width 13.3 % (11.5-14.5); Red Blood Cell (RBC) Count 5.68 mill/uL (4.20-5.40)
[2019-07-12 06:42] LABS: ALT (SGPT) 22 U/L (8-55); AST (SGOT) 29 U/L (5-34); Albumin 4.5 g/dL (3.4-4.8); Alkaline Phosphatase 35 U/L (40-110); Anion Gap 13 mmol/L (10-20); BUN (Urea Nitrogen) 15 mg/dL (9.8-20.1); Bilirubin, Total 0.8 mg/dL (0.2-1.2); Calc. Creatinine Clearance 0 mL/min (70-130); Calcium 10.3 mg/dL (7.8-10.44); Carbon Dioxide 27 mmol/L (23-31); Chloride 106 mmol/L (98-107); Estimated GFR-MDRD 39; Globulin 3.1 g/dL (2.4-3.5); Glucose 96 mg/dL (83-110); Potassium 4.5 mmol/L (3.5-5.1); Protein, Total 7.6 g/dL (6.0-8.3); Sodium 141 mmol/L (136-145)
[2019-07-12] MEDS ORDERED: Ondansetron ODT 4 MG TAB SL PRN (09:22)
[2019-07-12] MEDS ORDERED: Ondansetron PF 4 MG/2 ML Vial IVP PRN (09:22)
[2019-07-12] MEDS ORDERED: Acetaminophen 325 MG TAB PO PRN (09:26)
[2019-07-12] MEDS ORDERED: HYDROcodone/Acetaminophen 5/325 mg Tablet PO PRN (09:26)
[2019-07-12] MEDS ORDERED: Acetaminophen 650 MG Suppository PR PRN (09:26)
[2019-07-12 09:43] VITALS: BMI 26.6
[2019-07-12] MEDS: Dextrose 5 % And 0.9 % NaCl 1,000 ML IV SCH (10:20)
--- NOTE | 2019-07-12 10:22 | HP ---
PRIMARY CARE PHYSICIAN: Ning Mtz MD. CHIEF COMPLAINT: Bloody stools. HISTORY OF PRESENT ILLNESS: A 73-year-old female with known history of cardiomyopathy with ejection fraction of 25% to 30% on LifeVest, recent CVA on antiplatelet therapy, hypertension, lupus as well as chronic kidney disease and previous history of gastric ulcer, presenting to the hospital with acute onset of bloody stools. The patient reportedly developed bloody stool earlier this morning around 1 a.m. She has had 2 bloody stool prior to presentation and had further 2 bloody stool since presentation to the hospital. There was no associated abdominal discomfort or pain, nausea, vomiting, chest pain, palpitation, dizziness, headache, worsening leg swelling, dysuria, hematuria, fever, or chills. The patient admitted to exertional dyspnea, but that has not changed. In the emergency room, the patient was given 80 mg of intravenous Protonix as well as 500 mL of NS bolus and was admitted for further evaluation. Noteworthy on presentation, the patient was afebrile and with stable hemodynamics. PAST MEDICAL HISTORY: 1. Chronic systolic heart failure. 2. Cardiomyopathy with EF of 25% to 30%. 3. Mitral regurgitation. 4. Tricuspid regurgitation. 5. Lupus. 6. Hypertension. 7. Chronic kidney disease, stage 3. PAST SURGICAL HISTORY: 1. Hysterectomy. 2. Oophorectomy. 3. Bilateral cataract excision. 4. Left knee replacement. 5. Left rotator cuff repair x2. 6. Cholecystectomy. FAMILY HISTORY: Reviewed, but noncontributory. SOCIAL HISTORY: The patient lives with . She is a former smoker, quit several years ago. Denied alcohol or recreational drug use. She wants to be full code with spouse being the surrogate decision maker. ALLERGIES: NO KNOWN DRUG ALLERGIES REPORTED. HOME MEDICATIONS: 1. Carvedilol 3.125 mg p.o. b.i.d. 2. Aspirin 81 mg p.o. daily. 3. Plavix 75 mg p.o. daily. 4. Hydroxychloroquine 100 mg p.o. daily. 5. Cholecalciferol 4000 units p.o. daily. 6. Cetirizine 10 mg p.o. daily p.r.n. 7. Vitamin B complex 1 tablet p.o. daily. 8. Spironolactone 25 mg p.o. daily. 9. Entresto 24/ one tablet p.o. b.i.d. 10. Crestor 40 mg p.o. daily at bedtime. REVIEW OF SYSTEMS: A 12-point review of system performed was negative other than pertinent positives and negatives included in the History of Present Illness. PHYSICAL EXAMINATION: VITAL SIGNS: Temperature 97.4, pulse 81, respiratory rate 18, SpO2 of 99% on room air, blood pressure is 110/68. GENERAL: Comfortable elderly lady, in no distress. Afebrile. Anicteric. Acyanotic. HEENT: Normocephalic and atraumatic. Oral mucosa is moist. NECK: Supple and nontender with good range of motion. No JVD or masses appreciated. CARDIOVASCULAR: Regular rhythm and rate with normal heart sounds 1 and 2. Soft systolic murmur noted. RESPIRATORY: Good air entry bilaterally with no obvious crackle or rhonchi or use of accessory muscles. GI: Full, soft, nontender, nondistended with normal bowel sounds. Questionable left lower quadrant tenderness noted. EXTREMITIES: Grossly normal looking, atraumatic, with no edema or erythema. VESSEL OPERATOR: Conscious, alert, oriented x3 with appropriate mental status. Cranial nerves 2 through 12 are grossly intact. The patient moves all extremities spontaneously. Gait was not tested. DIAGNOSTIC DATA: CBC showed WBC count of 7.0, hemoglobin of 15.6, MCV of 79.0, platelet of 268. Coagulation panel showed PT 14.1, INR 1.1, PTT 32.3. CMP showed sodium 141, potassium 4.5, chloride 106, CO2 of 27, BUN 15, creatinine 1.57, glucose 96, calcium 10.3, total bilirubin 0.8, AST 29, ALT 22, alkaline phosphatase 35, total protein 7.6, albumin 4.5, globulin 3.1. Note that on June 13, creatinine was 1.08. However, since then, patient was restarted on spironolactone and also Entresto. ASSESSMENT: 1. Painless bloody stool/hematochezia. This is concerning for diverticular bleed or AV malformation. A history of gastric ulcer disease is noted, however, the patient denied nausea or vomiting, and if this should be upper GI bleed from gastric ulcer, one would expect melena, and if bloody stool is noted, there will be significant hemodynamic instability. This points more to diverticular bleed or AV malformation or hemorrhoids. Lower GI bleed seems higher in the differential. Ischemic colitis is another concern. 2. Chronic kidney disease with possible reversible component. The patient had creatinine of 1.08 on June 13. Currently, creatinine is 1.57. She, however, was restarted on spironolactone and Entresto since then. 3. Cardiomyopathy with EF of 25% to 30%. 4. Moderate mitral regurgitation. 5. Moderate tricuspid regurgitation. 6. Lupus. 7. Chronic kidney disease stage 3: Most likely from lupus. 8. Hypertension: Blood pressure is currently controlled. PLAN: 1. We will hold aspirin and Plavix. 2. We will start Protonix IV 40 mg b.i.d. 3. We will start gentle IV fluid hydration and keep the patient n.p.o. 4. We will consult GI for further evaluation and treatment. 5. We will hold antihypertensives for now. 6. We will get urinalysis with urine electrolytes. 7. We will continue Plaquenil for lupus. 8. Code status: Full code. Spouse is the surrogate decision maker. Further treatment to follow depending on hospital course. CT scan of the abdomen and pelvis is contemplated. Job ID: [id number]
[2019-07-12 11:54] LABS: Bacteria/HPF None Seen HPF (None Seen); Bilirubin Negative (Negative); Blood, Urine Trace (Negative); Clarity Clear (Clear); Glucose, Urine (Dipstick) Normal (Negative); Leukocyte Negative Leu/uL (Negative); Nitrite Negative (Negative); Protein, Urine (Dipstick) 20 mg/dL (Neg-Trace); RBC/HPF 0-3 HPF (0-3); Squamous Epithelial 0-3 HPF (0-3); Urobilinogen Normal mg/dL (Less than 2); WBC/HPF 0-3 HPF (0-3)
[2019-07-12 11:56] LABS: Urine Culture Reflex No No
[2019-07-12 12:11] LABS: Creatinine, Urine 63.79 mg/dL (47-110)
[2019-07-12 14:34] LABS: Hemoglobin 13.4 g/dL (12.0-16.0)
--- NOTE | 2019-07-12 16:35 | CON ---
DATE OF CONSULTATION: 07/12/2019 REASON FOR CONSULTATION: Rectal bleeding. HISTORY OF PRESENT ILLNESS: Ms. Es Magdaleno is a very pleasant 73-year-old female, hospitalized this morning with hematochezia. 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 She has no abdominal pain. No nausea or vomiting. Denies any pain or discomfort or any tenderness. She had no similar episodes in the past. She came to the ER. She already had 1 or 2 more bloody stools. I saw her in the room when she was sitting in the bathroom, and after she came out, I saw some clots and bright red blood in the commode. This pass is probably about 100 mL. The patient denied abdominal pain. No nausea or vomiting. The patient is known to me from before. The patient had seen me in the past because of abdominal pain and was found to have gastric ulcer x2 in 2016 and was treated for H. pylori infection. She had a previous polypectomy and she had a followup colonoscopy in November 2018. The colonoscopy showed no polyps. She was found to have diffuse colonic diverticular disease and hemorrhoids. The patient had a CVA in May 2019 and was hospitalized. She was placed on Plavix and aspirin. Her CVA has markedly improved. She at this time is mobile and her power seems to be coming back. She is walking around reasonably well. She had no dysarthria or any visible neuro symptoms. The patient has no relevant history. ALLERGIES: NONE. SOCIAL HISTORY: The patient is . She is a former smoker. She does not drink alcohol. PAST MEDICAL HISTORY: 1. Hypertension. 2. Systolic heart failure. 3. Cardiomyopathy with EF of 20% to 30%. 4. Mitral regurgitation. 5. Tricuspid regurgitation. 6. Lupus. 7. Chronic kidney disease. 8. Colon polyps. 9. Diverticular disease. PAST SURGICAL HISTORY: 1. Hysterectomy. 2. Oophorectomy. 3. Bilateral cataract surgery. 4. Left knee replacement. 5. Left rotator cuff repair x2. 6. Cholecystectomy. 7. EGD and colonoscopy. FAMILY HISTORY: Unremarkable. MEDICATIONS: Reviewed which include; 1. Aspirin. 2. Plavix. 3. Hydroxychloroquine. 4. Vitamin D3. 5. Cetirizine. 6. Vitamin B complex. 7. Spironolactone. 8. Entresto 24/26 one tablet twice a day. 9. Crestor. 10. Coreg. 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 She denies any dizziness or any seizures. No chronic headaches. RESPIRATORY SYSTEM: No chronic coughing. No hemoptysis. No dyspnea. CARDIOVASCULAR SYSTEM: No chest pain. No palpitation. No dyspnea, orthopnea, or PND. GI: As in History of Present Illness. : No dysuria or hematuria. MUSCULOSKELETAL/NEURO/ENDOCRINE/HEMATOLOGICAL: Not known. NEUROPSYCHIATRY: No depression or anxiety. PHYSICAL EXAMINATION: GENERAL: She appears very comfortable. She is awake, alert, and communicative. She is oriented to time, place, and person. VITAL SIGNS: Afebrile, pulse is 81, and blood pressure is 110/68. HEENT: Conjunctivae are clear. NECK: Supple. No adenitis or thyromegaly noted. CARDIOVASCULAR SYSTEM: First and second heart sounds heard. She has systolic murmur. LUNGS: Clear to auscultation. ABDOMEN: Soft. Nontender. No organomegaly. No masses. Bowel sounds normal. CENTRAL NERVOUS SYSTEM: Grossly within normal. Her power seems to be back to normal. LABORATORY DATA: The lab data from this morning, CBC is actually normal. Hemoglobin is 15.6, hematocrit 44.9, MCV 79, platelet count is 268,000, polymorphs 69, lymphocytes 19, WBC 7000. Chem-7 is normal. BUN is 15, creatinine 1.57 mg present, glucose is 96, calcium 10.3, bilirubin 0.8. AST and ALT are normal. Alkaline phosphatase 35. Albumin 4.5. CLINICAL IMPRESSION: A 73-year-old female with; 1. Recent CVA with left-sided weakness. She is on Plavix and aspirin. Her weakness has improved and she is actually ambulating. She presented with hematochezia. The patient's CBC is actually normal. She had a colonoscopy I believe about 7 months ago, this was in November 2018. The colonoscopy basically showed diffuse colonic diverticula and hemorrhoids. 2. Status post CVA recovery in May 2019. 3. Cardiomyopathy with poor ejection fraction. 4. Hypertension. 5. Hyperlipidemia. 6. Gastric ulcer in 2017. Based on the history, I believe she is mostly bleeding from hemorrhoids and possibly from diverticulitis. The blood count is actually normal, although she has had at least 2 or 3 episodes of bleeding. She had a colonoscopy less than 7 months ago, she needs no repeat colonoscopy. Also possibility is GI bleeding from vascular ectasia which is unlikely as she has normal CBC. RECOMMENDATIONS: 1. Clear liquid diet. 2. Serial H and H. If the bleeding continues, I will try the tagged RBC scan to locate the site of bleeding. As she has normal CBC, it is possible she could have some bleeding from hemorrhoids as she is on anticoagulants. I am not planning for any colonoscopy at the present time as she has had a colonoscopy early this year. Job ID: [id number]
[2019-07-12] MEDS: Pantoprazole 40 MG VIAL IVP SCH (20:05)
[2019-07-13 00:15] LABS: Hemoglobin 12.8 g/dL (12.0-16.0)
[2019-07-13] MEDS: Dextrose 5 % And 0.9 % NaCl 1,000 ML IV SCH (05:50)
[2019-07-13 05:55] LABS: #Eosinphils 0.3 thou/uL (0.0-0.7); #Lymphocytes 1.6 thou/uL (1.20-3.40); #Monocytes 0.4 thou/uL (0.11-0.59); #Neutrophils 2.9 thou/uL (1.40-6.50); %Basophils 0.9 % (0.0-1.0); %Lymphocytes 30.7 % (21.0-51.0); %Monocytes 6.8 % (0.0-10.0); %Neutrophils 56.7 % (42.0-75.0); Hemoglobin 14.5 g/dL (12.0-16.0); Mean Corpuscular HGB CONC 32.8 g/dL (32.0-36.0); Mean Corpuscular Hemoglobin 26.1 pg (27.0-31.0); Mean Corpuscular Volume 79.4 fL (78.0-98.0); Mean Platelet Volume 7.9 fL (7.4-10.4); Platelet Count 260 thou/uL (130-400); RBC Distribution Width 13.4 % (11.5-14.5); Red Blood Cell (RBC) Count 5.57 mill/uL (4.20-5.40); White Blood Cell (WBC) Count 5.1 thou/uL (4.8-10.8)
[2019-07-13 06:09] LABS: Anion Gap 14 mmol/L (10-20); BUN (Urea Nitrogen) 9 mg/dL (9.8-20.1); BUN/Creatinine Ratio 6.67; Calc. Creatinine Clearance 39 mL/min (70-130); Calcium 9.8 mg/dL (7.8-10.44); Carbon Dioxide 20 mmol/L (23-31); Chloride 110 mmol/L (98-107); Estimated GFR-MDRD 47; Glucose 94 mg/dL (83-110); Phosphorus 3.6 mg/dL (2.3-4.7); Sodium 140 mmol/L (136-145)
[2019-07-13] MEDS ORDERED: Loratadine 10 MG TAB PO PRN (08:03)
[2019-07-13] MEDS: Carvedilol 3.125 MG TAB PO SCH ×2 (10:16→20:33)
[2019-07-13] MEDS: Pantoprazole 40 MG VIAL IVP SCH ×2 (10:17→20:33)
[2019-07-13] MEDS: Hydroxychloroquine Sulfate 200 MG TAB PO SCH (10:17)
[2019-07-13] MEDS: Stress 600 With Zinc 1 TAB PO SCH (10:18)
--- NOTE | 2019-07-13 14:27 | PDOC.HOSPP ---
- Subjective Encounter Date: 07/13/19 Encounter Time: 14:25 Subjective: 73 y/o female with cardiomyopathy, lupus and CAD on antiplatelets admitted with hematochezia. No bloody stool since yesterday morning. Denied any discomfort. - Objective Vital Signs & Weight: Vital Signs (12 hours) Temp Pulse Resp BP BP Pulse Ox 07/13/19 08:00 100 07/13/19 07:55 97.6 F 81 20 108/72 100 07/13/19 04:00 98.0 F 79 16 106/71 97 Weight Weight 141 lb 1.533 oz I&O: 07/12/19 07/13/19 07/14/19 06:59 06:59 06:59 Intake Total 1825 Balance 1825 Result Diagrams: 07/13/19 05:35 07/13/19 05:35 Hospitalist ROS - Medication Medications: Active Medications Generic Name Dose Route Start Last Admin Trade Name Freq PRN Reason Stop Dose Admin Carvedilol 3.125 mg 07/13/19 09:00 07/13/19 10:16 Coreg PO 3.125 mg BID PADMAJA Administration Cholecalciferol 4,000 units 07/13/19 09:00 07/13/19 10:16 Vitamin D3 PO 4,000 units DAILY PADMAJA Administration Hydroxychloroquine Sulfate 100 mg 07/13/19 09:00 07/13/19 10:17 Plaquenil PO 100 mg DAILY PADMAJA Administration Dextrose/Sodium Chloride 1,000 mls @ 50 mls/hr 07/12/19 09:30 07/13/19 05:50 D5 0.9% Ns IV Not Given .Q20H PADMAJA Multivitamins/Zinc 1 tab 07/13/19 09:00 07/13/19 10:18 Stress 600 With Zinc PO 1 tab DAILY PADMAJA Administration Pantoprazole Sodium 40 mg 07/12/19 21:00 07/13/19 10:17 Protonix IVP 40 mg BID PADMAJA Administration Sacubitril/Valsartan 1 tab 07/13/19 09:00 07/13/19 10:18 Entresto 24 Mg-26 Mg Tablet PO 1 tab BID PADMAJA Administration - Exam General Appearance: awake alert Eye: PERRL, anicteric sclera ENT: normocephalic atraumatic Neck: supple, symmetric, no JVD Heart: RRR Respiratory: no wheezes, no rales, no ronchi, normal chest expansion, no tachypnea Gastrointestinal: soft, non-tender, non-distended, normal bowel sounds Extremities: no cyanosis, no edema Neurological: cranial nerve grossly intact, no new deficit Musculoskeletal: normal tone Psychiatric: normal affect, A&O x 3 Hosp A/P (1) Hematochezia Code(s): K92.1 - MELENA Status: Acute (2) Chronic systolic (congestive) heart failure Code(s): I50.22 - CHRONIC SYSTOLIC (CONGESTIVE) HEART FAILURE Status: Acute (3) Cardiomyopathy Code(s): I42.9 - CARDIOMYOPATHY, UNSPECIFIED Status: Acute (4) HTN (hypertension), benign Code(s): I10 - ESSENTIAL (PRIMARY) HYPERTENSION Status: Acute (5) CKD (chronic kidney disease) stage 3, GFR 30-59 ml/min Code(s): N18.3 - CHRONIC KIDNEY DISEASE, STAGE 3 (MODERATE) Status: Acute (6) Lupus (systemic lupus erythematosus) Code(s): M32.9 - SYSTEMIC LUPUS ERYTHEMATOSUS, UNSPECIFIED Status: Acute - Plan Advance diet to heart healthy as No Endoscopy is planned. Restart home medication except ASA, plavix and aldactone. Monitor vitals. Follow H/H and renal function.
--- NOTE | 2019-07-13 20:14 | PRG ---
DATE OF SERVICE: 07/13/2019 SUBJECTIVE: Ms. Es Magdaleno is a very pleasant 73-year-old black female with recent CVA in May 2019. She was placed on aspirin, Plavix. The patient comes for hematochezia. Bleeding is painless. Although she has been bleeding several times a day yesterday and today, her blood count is really stable. She has no abdominal pain. No nausea or vomiting. The lab data from yesterday, the admitting CBC, hemoglobin 15.6, hematocrit 44.9. Today, hemoglobin 14.5, hematocrit 44.2. No abdominal pain. No perianal discomfort. The patient's bleeding has markedly slowed down. She still has some mild bleeding, but the blood is dark or red and is small amount. She is tolerating diet. OBJECTIVE: GENERAL: Appears comfortable. VITAL SIGNS: Afebrile, pulse is 81, blood pressure is 108/72. CARDIOVASCULAR SYSTEM: First and second heart sounds are normal. LUNGS: Clear to auscultation. ABDOMEN: Soft. No organomegaly. No tenderness. No masses. CLINICAL IMPRESSION: Rectal bleeding most likely from hemorrhoids as she has normal CBC. She had a colonoscopy in November 2018 that revealed hemorrhoids and also diffuse colonic diverticular disease. RECOMMENDATION: If her blood count is stable, consider discharge home tomorrow. She does not need any repeat colonoscopy at this time. Job ID: [id number]
[2019-07-13] MEDS ORDERED: Rosuvastatin 20 MG TAB PO SCH (21:00)
[2019-07-14 06:54] LABS: Hemoglobin 12.4 g/dL (12.0-16.0); Mean Corpuscular HGB CONC 33.6 g/dL (32.0-36.0); Mean Corpuscular Hemoglobin 26.2 pg (27.0-31.0); Mean Corpuscular Volume 77.9 fL (78.0-98.0); Mean Platelet Volume 8.1 fL (7.4-10.4); Platelet Count 227 thou/uL (130-400); RBC Distribution Width 13.1 % (11.5-14.5); Red Blood Cell (RBC) Count 4.74 mill/uL (4.20-5.40); White Blood Cell (WBC) Count 5.4 thou/uL (4.8-10.8)
[2019-07-14 07:08] LABS: Anion Gap 12 mmol/L (10-20); BUN (Urea Nitrogen) 10 mg/dL (9.8-20.1); Calc. Creatinine Clearance 41 mL/min (70-130); Calcium 9.4 mg/dL (7.8-10.44); Carbon Dioxide 23 mmol/L (23-31); Chloride 109 mmol/L (98-107); Estimated GFR-MDRD 50; Glucose 86 mg/dL (83-110); Potassium 3.9 mmol/L (3.5-5.1); Sodium 140 mmol/L (136-145)
[2019-07-14] MEDS: Hydroxychloroquine Sulfate 200 MG TAB PO SCH (08:53)
[2019-07-14] MEDS: Carvedilol 3.125 MG TAB PO SCH (08:54)
[2019-07-14] MEDS: Pantoprazole 40 MG VIAL IVP SCH (08:54)
[2019-07-14] MEDS: Stress 600 With Zinc 1 TAB PO SCH (08:54)
[2019-07-14] MEDS ORDERED: Methyl Salicylate/Menthol 85 GM TUBE TOP PRN (10:52)
[2019-07-14 12:14] VITALS: BP 117/60; TEMP 97.9
== END 2019-07-14 12:28 | disposition home or self-care (01) | DRG 394 ==
LOC: ERS 05:35 → T4-A 07:26
PROVIDERS: ADMIT Internal Medicine Nephrology; ATTEND Internal Medicine Nephrology
DX: K64.8 Other hemorrhoids (principal); I13.0 Hypertensive heart and chronic kidney disease with heart failure and stage 1 through stage 4 chronic kidney disease, or unspecified chronic kidney disease; I50.22 Chronic systolic (congestive) heart failure; I69.954 Hemiplegia and hemiparesis following unspecified cerebrovascular disease affecting left non-dominant side; R40.2362 Coma scale, best motor response, obeys commands, at arrival to emergency department; K57.30 Diverticulosis of large intestine without perforation or abscess without bleeding; R40.2142 Coma scale, eyes open, spontaneous, at arrival to emergency department; M32.9 Systemic lupus erythematosus, unspecified; R40.2252 Coma scale, best verbal response, oriented, at arrival to emergency department; N18.3 Chronic kidney disease, stage 3 (moderate); Z90.710 Acquired absence of both cervix and uterus; Z96.652 Presence of left artificial knee joint; Z98.42 Cataract extraction status, left eye; Z98.41 Cataract extraction status, right eye; Z90.49 Acquired absence of other specified parts of digestive tract
CPT/HCPCS: 36415; 80048; 80053; 80069; 81001; 82274; 82570; 83630; 84156; 84300; 84540; 85025; 85027; 85610; 85730; 86850; 86900; 86901; 87045; 87046; 87427; 87449; 93005; C9113

== ENCOUNTER 2019-07-16 10:37 | Inpatient (IN) | payer MEDICARE ==
[2019-07-16 11:27] LABS: #Eosinphils 0.2 thou/uL (0.0-0.7); #Lymphocytes 1.2 thou/uL (1.20-3.40); #Monocytes 0.5 thou/uL (0.11-0.59); #Neutrophils 4.9 thou/uL (1.40-6.50); %Basophils 0.5 % (0.0-1.0); %Eosinophils 3.5 % (0.0-10.0); %Monocytes 7.8 % (0.0-10.0); %Neutrophils 71.3 % (42.0-75.0); Hemoglobin 12.7 g/dL (12.0-16.0); Mean Corpuscular HGB CONC 33.3 g/dL (32.0-36.0); Mean Corpuscular Hemoglobin 25.9 pg (27.0-31.0); Mean Corpuscular Volume 77.9 fL (78.0-98.0); Mean Platelet Volume 7.8 fL (7.4-10.4); Platelet Count 246 thou/uL (130-400); White Blood Cell (WBC) Count 6.9 thou/uL (4.8-10.8)
--- NOTE | 2019-07-16 11:32 | RAD ---
EXAM: Single view of the chest HISTORY: CHF and low blood pressure COMPARISON: 06/09/2019 FINDINGS: Single view of the chest shows an enlarged but stable cardiomediastinal silhouette. There i s no evidence of consolidation, mass, or pleural effusion. Degenerative changes are seen in the spine. Postsurgical changes are seen in both shoulders. IMPRESSION: Cardiomegaly without evidence of acute cardiopulmonary disease
[2019-07-16 11:57] LABS: ALT (SGPT) 16 U/L (8-55); AST (SGOT) 25 U/L (5-34); Albumin 3.9 g/dL (3.4-4.8); Alkaline Phosphatase 29 U/L (40-110); Anion Gap 12 mmol/L (10-20); BUN (Urea Nitrogen) 21 mg/dL (9.8-20.1); Bilirubin, Total 0.8 mg/dL (0.2-1.2); CK (CPK) 198 U/L (29-168); Calc. Creatinine Clearance 0 mL/min (70-130); Calcium 9.9 mg/dL (7.8-10.44); Carbon Dioxide 26 mmol/L (23-31); Chloride 100 mmol/L (98-107); Estimated GFR-MDRD 26; Globulin 3.3 g/dL (2.4-3.5); Glucose 91 mg/dL (83-110); Potassium 4.7 mmol/L (3.5-5.1); Protein, Total 7.2 g/dL (6.0-8.3); Sodium 133 mmol/L (136-145)
[2019-07-16 12:15] LABS: Bilirubin Negative (Negative); Blood, Urine Negative (Negative); Clarity Turbid (Clear); Glucose, Urine (Dipstick) Normal (Negative); Leukocyte 25 Leu/uL (Negative); Nitrite Negative (Negative); Protein, Urine (Dipstick) 300 mg/dL (Neg-Trace); Urobilinogen 3 mg/dL (Less than 2)
[2019-07-16] MEDS ORDERED: Loratadine 10 MG TAB PO PRN (12:18)
[2019-07-16] MEDS ORDERED: Acetaminophen 325 MG TAB PO PRN ×2 (12:18→12:21)
[2019-07-16] MEDS ORDERED: Methyl Salicylate/Menthol 85 GM TUBE TOP PRN (12:18)
[2019-07-16] MEDS ORDERED: HYDROcodone/Acetaminophen 7.5/325 mg Tablet PO PRN (12:21)
[2019-07-16] MEDS ORDERED: Ondansetron ODT 4 MG TAB PO PRN (12:21)
[2019-07-16] MEDS ORDERED: Ondansetron PF 4 MG/2 ML Vial IVP PRN (12:21)
[2019-07-16] MEDS ORDERED: HYDROcodone/Acetaminophen 5/325 mg Tablet PO PRN (12:21)
[2019-07-16] MEDS ORDERED: Bisacodyl 5 MG TAB PO PRN (12:21)
[2019-07-16] MEDS ORDERED: diphenhydrAMINE 25 MG CAP PO PRN (12:25)
[2019-07-16] MEDS ORDERED: Benzonatate 100 MG CAP PO PRN (12:25)
[2019-07-16] MEDS ORDERED: Docusate 100 MG CAP PO PRN (12:25)
[2019-07-16] MEDS ORDERED: Labetalol HCl 100 MG/20 ML VIAL SLOW IVP PRN (12:25)
[2019-07-16] MEDS ORDERED: Melatonin 3 MG TAB PO PRN (12:25)
[2019-07-16 12:30] LABS: Bacteria/HPF 2+ HPF (None Seen); RBC/HPF 0-3 HPF (0-3)
[2019-07-16] MEDS: Heparin 5,000 UNITS/ML VIAL SC SCH ×2 (16:10→21:19)
[2019-07-16 17:28] VITALS: BMI 27.8
--- NOTE | 2019-07-16 17:56 | PDOC.HHP ---
Hospitalist HPI - History of Present Illness Dizzy, light headed, generalized weakness History of Present Illness: Mrs. Magdaleno is a very pleasant 73-year-old female with past medical history of congestive heart failure with ejection fraction 25% currently on life vest, chronic kidney disease, hypertension, Lupus, hyperlipidemia, coronary artery disease, CVA, and recent episode of gastrointestinal bleeding who presents with generalized weakness, lightheadedness, and dizziness. Patient recently discharged from [facility] and has been compliant on cardiomyopathy regimen. Patient states that she has been taking diuretic therapy spironolactone strictly as directed. Patient states that she has been restricting her fluid intake so that she would not going to heart failure and barely drinks any water at all. Patient presents the [facility] and found have acute kidney injury and dehydration. Patient received IV fluids in the emergency department and had a good improvement of symptoms. I find the patient on the medical unit with telemetry after she has received fluids and her symptoms have resolved. 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 Patient currently denying presenting symptoms. Patient is breathing well on room air. There are no symptoms of congestive heart failure at this time. Cardiology and nephrology and put requested for further recommendations. 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 Gastrointestinal: reports: GERD, GI bleed Musculoskeletal: reports: Osteoarthritis Rheumatologic: reports: Gout Renal/: reports: Chronic renal insuff - Past Surgical History Past Surgical History: reports: Cholecystectomy, Cataract Removal, Hysterectomy (oophorectomy), Total Knee Replacement, Other (Rotator cuff) - Family History Family History: reports: hypertension - Social History Smoking Status: Unknown if ever smoked Alcohol: reports: None Drugs: reports: none Living Situation: With Family Domestic Violence: Negative Activity level: independent ambulation - Exam General Appearance: NAD, awake alert Eye: PERRL, anicteric sclera ENT: normocephalic atraumatic, moist mucosa Neck: supple, symmetric, no lymphadenopathy Heart: no murmur, no gallops, no rubs Respiratory: CTAB, no wheezes, no rales, no ronchi, normal chest expansion Gastrointestinal: soft, non-tender, non-distended, no palpable masses, no guarding, no rigidity Extremities - other findings: Right LE +1 edema, no edema Left LE Skin - other findings: Right ankle errythema secondary to acute gout flair Neurological: cranial nerve grossly intact, normal sensation to touch, no focal deficits Musculoskeletal: generalized weakness Psychiatric: normal affect, A&O x 3 Hospitalist Results - Labs Result Diagrams: 07/16/19 11:15 07/16/19 11:15 Lab results: WBC 6.9 thou/uL (4.8-10.8) 07/16/19 11:15 Hgb 12.7 g/dL (12.0-16.0) 07/16/19 11:15 Hct 38.2 % (36.0-47.0) 07/16/19 11:15 MCV 77.9 fL (78.0-98.0) L 07/16/19 11:15 Plt Count 246 thou/uL (130-400) 07/16/19 11:15 Neutrophils % 71.3 % (42.0-75.0) 07/16/19 11:15 Sodium 133 mmol/L (136-145) L 07/16/19 11:15 Potassium 4.7 mmol/L (3.5-5.1) 07/16/19 11:15 Chloride 100 mmol/L (98-107) 07/16/19 11:15 Carbon Dioxide 26 mmol/L (23-31) 07/16/19 11:15 BUN 21 mg/dL (9.8-20.1) H 07/16/19 11:15 Creatinine 2.26 mg/dL (0.6-1.1) H 07/16/19 11:15 Glucose 91 mg/dL (83-110) 07/16/19 11:15 Lactic Acid 0.9 mmol/L (0.5-2.2) 07/16/19 11:15 Calcium 9.9 mg/dL (7.8-10.44) 07/16/19 11:15 Total Bilirubin 0.8 mg/dL (0.2-1.2) 07/16/19 11:15 AST 25 U/L (5-34) 07/16/19 11:15 ALT 16 U/L (8-55) 07/16/19 11:15 Alkaline Phosphatase 29 U/L (40-110) L 07/16/19 11:15 Creatine Kinase 198 U/L (29-168) H 07/16/19 11:15 B-Natriuretic Peptide 493.1 pg/mL (0-100) H 07/16/19 11:15 Serum Total Protein 7.2 g/dL (6.0-8.3) 07/16/19 11:15 Albumin 3.9 g/dL (3.4-4.8) 07/16/19 11:15 Urine Ketones Trace mg/dL (Negative) A 07/16/19 11:47 Urine Blood Negative (Negative) 07/16/19 11:47 Urine Nitrite Negative (Negative) 07/16/19 11:47 Ur Leukocyte Esterase 25 Yolanda/uL (Negative) 07/16/19 11:47 Urine RBC 0-3 HPF (0-3) 07/16/19 11:47 Urine WBC 4-6 HPF (0-3) A 07/16/19 11:47 Ur Squamous Epith Cells 11-20 HPF (0-3) A 07/16/19 11:47 Urine Bacteria 2+ HPF (None Seen) A 07/16/19 11:47 - Radiology Interpretation Chest x-ray Status: image reviewed by oh Hospitalist H&P A/P - Problem (1) TRISTEN (acute kidney injury) Code(s): N17.9 - ACUTE KIDNEY FAILURE, UNSPECIFIED Status: Acute (2) Dehydration Code(s): E86.0 - DEHYDRATION Status: Acute (3) Dizziness Code(s): R42 - DIZZINESS AND GIDDINESS Status: Acute (4) CKD (chronic kidney disease) stage 3, GFR 30-59 ml/min Code(s): N18.3 - CHRONIC KIDNEY DISEASE, STAGE 3 (MODERATE) Status: Acute (5) CVA (cerebral vascular accident) Code(s): I63.9 - CEREBRAL INFARCTION, UNSPECIFIED Status: Acute Qualifiers: CVA mechanism: embolism (6) Cardiomyopathy Code(s): I42.9 - CARDIOMYOPATHY, UNSPECIFIED Status: Acute (7) Chronic systolic (congestive) heart failure Code(s): I50.22 - CHRONIC SYSTOLIC (CONGESTIVE) HEART FAILURE Status: Acute (8) HTN (hypertension), benign Code(s): I10 - ESSENTIAL (PRIMARY) HYPERTENSION Status: Acute (9) Hematochezia Code(s): K92.1 - MELENA Status: Acute (10) Lupus (systemic lupus erythematosus) Code(s): M32.9 - SYSTEMIC LUPUS ERYTHEMATOSUS, UNSPECIFIED Status: Acute (11) Gout attack Code(s): M10.9 - GOUT, UNSPECIFIED Status: Acute - Plan Plan: Plan: Admit to medical unit with telemetry Nephrology consultation, recommendations appreciated Cardiology consultation, recommendations appreciated patient has been overly diuresed and too restrictive on her fluid intake and she has now developed a kidney injury and dehydration was symptoms of lightheadedness and dizziness secondary to this patient received IV fluids in the emergency department, I will not continue IV fluids at this time to avoid congestive heart failure recommend patient have more regulated consistent intake of fluids, to avoid acute kidney injury and congestive heart failure is a delicate balance she is currently on the dry side continue CHF medications, holding spironolactone until tomorrow when 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 prophylaxis with history of recent G.I. bleeding, continue home medications with PPI and famotidine continue other home medications as able blood pressure control, was hypotensive secondary to dehydration on admission which has improved.
[2019-07-16] MEDS ORDERED: methylPREDNISolone Sod Succ 40 MG VIAL IVP SCH (18:15)
--- NOTE | 2019-07-16 18:51 | ULT ---
EXAM: Right lower extremity venous Doppler US HISTORY: Right lower extremity edema and pain FINDINGS: Grayscale, color-flow, Doppler evaluation, spectral analysis of the right lower extremity venous stru ctures is performed with 2-D imaging. The right common femoral, superficial femoral, popliteal, posterior tibial, proximal greater saphenous and profunda femoral veins are imaged. There is normal luminal compressibility, flow, and augmentation the visualized deep venous structures of the right lower extremity. IMPRESSION: No evidence of a deep vein thrombosis in the right lower extremity.
[2019-07-16] MEDS ORDERED: Rosuvastatin 20 MG TAB PO SCH (21:00)
[2019-07-16] MEDS: Famotidine 20 MG TAB PO SCH (21:18)
[2019-07-16] MEDS: Carvedilol 3.125 MG TAB PO SCH (21:18)
--- NOTE | 2019-07-16 21:34 | ULT ---
BILATERAL RENAL ULTRASOUND: 07/16/19 HISTORY: Acute renal insufficiency. FINDINGS: The right kidney measures 9.3 cm in length and the left kidney measures 10.3 cm in length. No focal m ass or hydronephrosis is seen on either side. No shadowing calculi are noted. There is mildly increas ed echogenicity of the right kidney compared to the left. The urinary bladder is unremarkable. Bilate ral ureteral jets are present from the urinary bladder. IMPRESSION: No evidence of high grade obstruction. POS: OFF
--- NOTE | 2019-07-17 02:17 | CON ---
DATE OF CONSULTATION: REASON FOR CONSULTATION: Acute kidney injury. HISTORY OF PRESENT ILLNESS: This is a very pleasant 73-year-old female, congestive heart failure ejection fraction and a baseline creatinine of 1.2 on July 14, was seen for a creatinine of 2.2, which lupe within two days. She has had TRISTEN with CKD in the past. PAST MEDICAL HISTORY: Significant for hypertension, CKD, acute kidney injury, TIA, stroke, CVA, congestive heart failure, history of cholecystectomy, cataract surgery, hysterectomy, oophorectomy, total knee replacement, and rotator cuff surgery. FAMILY HISTORY: Negative for ESRD. SOCIAL HISTORY: Noncontributory. No alcohol or drug use. ALLERGIES: REVIEWED. HOME MEDICATIONS: List reviewed. HOSPITAL MEDICATIONS: List reviewed. REVIEW OF SYSTEMS: 15-point review of systems was performed, negative except for positives noted above. GENERAL: HEAD: NECK: No swelling or lumps. NOSE: No epistaxis or discharge. EYES: No diplopia or pain. 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 NEUROPSYCHIATIC SYSTEMS: No suicidal ideation. No ideation. SKIN: Denies any rash or ulcer. CONSTITUTIONAL: No fever or chills. PHYSICAL EXAMINATION: See above. GENERAL: The patient is awake, alert, in no acute distress. VITAL SIGNS: Afebrile, pulse 75, breathing 16, and blood pressure was 104/62. GENERAL APPEARANCE AND MENTAL STATUS: Fair. HEAD/NECK: Normocephalic. Atraumatic. EYES: EOMI. No deformity. EARS: Clear. No ulcers. NOSE: Intact. No lesions. MOUTH: Clear. No discharge. THROAT: Clear. No exudate. LUNGS: Clear. No crackles. CARDIAC: S1, S2. No rub. ABDOMEN: Benign. Bowel sounds positive. GENITALIA/RECTUM: Berger absent. BACK/EXTREMITIES: Edema 0+. NEUROLOGICAL: Alert and motor intact. SKIN: LYMPHATICS: LABORATORY DATA: Reviewed. ASSESSMENT AND PLAN: 1. Acute kidney injury with chronic kidney disease, most likely due to decreased effective arterial blood volume in the setting of proteinuria. I would recommend decreasing the Entresto to one pill a day and recheck labs in the morning. No indication for dialysis at this time. 2. Hypertensive. 3. Anemia, stable. Medication based on GFR appropriate. 4. Proteinuria, I will order SPEP and UPEP. Job ID: [id number]
--- NOTE | 2019-07-17 02:50 | CON ---
DATE OF CONSULTATION: HISTORY: Es Magdaleno is a 73-year-old black female patient, who follows with Dr. Pop. She has hkzxwalj-dz-trtmxh mitral and tricuspid valve regurgitation and echocardiogram earlier this year showed normal ejection fraction. She apparently has been evaluated in [place], but it was felt that she should continue to be treated medically. She had another echocardiogram performed in the office, which showed a significant fall in her ejection fraction to 25%. She had presented to the hospital on June 10, after she had not been able to stand at home and kept falling. She was placed on Plavix in addition to aspirin. It was felt that she had a cerebrovascular accident. She was admitted on July 12 with bloody stools. She underwent EGD, which revealed two gastric ulcers as well as gastric erosion. She was placed on proton pump inhibitor. She was last seen in the office on July 03, 2019, and her Aldactone 25 mg daily was resumed. She now is admitted with acute kidney injury on chronic kidney disease with lightheadedness. She has received intravenous fluids in the emergency room and states that her symptoms have improved. She denies any chest discomfort, shortness of breath, or edema. PAST MEDICAL HISTORY: Remarkable for congestive heart failure, huxxqawv-hl-dysjij mitral and tricuspid regurgitation, hypertension, hyperlipidemia, history of recent stroke, and gastrointestinal bleeding from gastric ulcers recently. PAST SURGICAL HISTORY: Cholecystectomy, hysterectomy, knee replacement, and rotator cuff surgery. MEDICATIONS: 1. Aspirin 81 daily. 2. Carvedilol 3.125 b.i.d. 3. Zyrtec 10 mg p.r.n. 4. Plavix 75 mg daily. 5. Plaquenil 100 mg daily. 6. Protonix 40 daily. 7. Rosuvastatin 40 at bedtime. 8. Entresto 24/ b.i.d. 9. Spironolactone 25 daily. ALLERGIES: ANCEF. REVIEW OF SYSTEMS: A 10-point review of systems is otherwise unremarkable. PHYSICAL EXAMINATION: VITAL SIGNS: Blood pressure 104/62 and pulse of 70. HEENT: PERRL. NECK: Supple. CHEST: Clear. CARDIAC: S1 and S2 normal without any S3 or S4. There are no murmurs. ABDOMEN: Normal bowel sounds without tenderness or organomegaly. EXTREMITIES: Revealed no clubbing, cyanosis, or edema. NEUROLOGICAL: Stable from before. LABORATORY DATA: EKG revealed normal sinus rhythm with low voltage QRS, possible old inferior infarction. Sodium 133, potassium 4.7, chloride 100, carbon dioxide 26, BUN 21, and creatinine 2.26. BNP 493.1. TSH is normal. Hemoglobin 12.7, hematocrit 38.2, white count 6900, and platelets 246,000. IMPRESSION: 1. Acute on chronic kidney disease with volume depletion. 2. Lightheadedness, probably secondary to #1. 3. History of cerebrovascular accident one month ago. 4. Cardiomyopathy with ejection fraction significantly falling to 25%, whereas it had been normal at the beginning of the year. She does have LifeVest on at this time. 5. Wiinlqft-jh-uqijyx mitral and tricuspid regurgitation. 6. Hypertension. 7. Recent gastrointestinal bleed secondary to gastric ulcers. 8. History of systemic lupus erythematosus. PLAN: The patient received IV fluids, and Aldactone has been discontinued. Also, Entresto has been held at this time. She is being gently hydrated with intravenous fluids, and her renal function will be monitored very closely. Job ID: [id number]
[2019-07-17 04:29] LABS: Anion Gap 8 mmol/L (10-20); BUN (Urea Nitrogen) 26 mg/dL (9.8-20.1); Calc. Creatinine Clearance 33 mL/min (70-130); Calcium 9.5 mg/dL (7.8-10.44); Carbon Dioxide 25 mmol/L (23-31); Chloride 106 mmol/L (98-107); Estimated GFR-MDRD 37; Glucose 181 mg/dL (83-110); Potassium 4.9 mmol/L (3.5-5.1); Sodium 134 mmol/L (136-145)
[2019-07-17 07:21] LABS: Creatinine, Urine 72.22 mg/dL (47-110)
[2019-07-17] MEDS: Heparin 5,000 UNITS/ML VIAL SC SCH (08:22)
[2019-07-17] MEDS: Carvedilol 3.125 MG TAB PO SCH (08:23)
[2019-07-17] MEDS: Famotidine 20 MG TAB PO SCH (08:24)
[2019-07-17 08:30] VITALS: BP 112/58; TEMP 97.8
[2019-07-17] MEDS ORDERED: Stress 600 With Zinc 1 TAB PO SCH (09:00)
[2019-07-17] MEDS ORDERED: Aspirin 81 mg Enteric Coated Tablet PO SCH (09:00)
[2019-07-17] MEDS ORDERED: Hydroxychloroquine Sulfate 200 MG TAB PO SCH (09:00)
[2019-07-17] MEDS ORDERED: Clopidogrel Bisulfate 75 MG TAB PO SCH (09:00)
--- NOTE | 2019-07-17 10:56 | CON ---
DATE OF CONSULTATION: SERVICE: Renal Medicine. HISTORY OF PRESENT ILLNESS: Ms. Magdaleno is a 73-year-old black female with known history of acute kidney injury that was hemodynamically-mediated renal dysfunction. Adjustment of her medications was done back in February 2019. She was on ibuprofen which was discontinued. In addition, due to the worsening renal dysfunction, her diuretics have been discontinued by her die cut operator. Recently, she also had a CVA. The patient also was initially admitted due to lightheadedness and generalized weakness. She probably was simply volume depleted. Her renal function is improved with discontinuation of her diuretics. REVIEW OF SYSTEMS: Positive for dizziness-resolved and generalized weakness-resolved. No chest pain. No shortness of breath. Denies any leg edema. No nausea. No vomiting. No diarrhea. No constipation. No productive cough. No fever or chills. Appetite and energy level are decreased. No headache. No diplopia. MEDICATIONS: Currently, the patient is on the following medications: 1. Acetaminophen 650 mg q.4 p.r.n. 2. Aspirin 81 mg daily. 3. Benzonatate 100 mg q.4 as needed. 4. Carvedilol 3.125 mg p.o. b.i.d. 5. Vitamin D3 of 4000 international units daily. 6. Plavix 75 mg once a day. 7. Famotidine 20 mg b.i.d. 8. Heparin 5000 units subcu q.8. 9. DuoNeb as directed. 10. Plaquenil 100 mg daily. 11. Melatonin 3 mg at bedtime. 12. Rosuvastatin 40 mg at bedtime. PAST MEDICAL HISTORY: 1. Acute kidney injury/chronic renal failure versus superimposed hemodynamically-mediated renal dysfunction. 2. Status post congestive heart failure, mitral valve disease, degenerative joint disease, hypertension, left ventricular hypertrophy, discoid lupus. PAST SURGICAL HISTORY: Status post cardiac cath, status post colonoscopy, status post left knee replacement, status post right carpal tunnel surgery, status post bilateral rotator cuff surgery, status post bilateral cataract surgery, status post hysterectomy. SOCIAL HISTORY: The patient lives in [place]. x2, one child. 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 Smoked for 40 years 1 pack a day. No alcohol. No drug abuse. No blood transfusion. ALLERGIES: NONE. TRAUMA: None. HOSPITALIZATIONS: Please see past medical history. IMMUNIZATIONS: Up-to-date. FAMILY HISTORY: No family history of ESRD. PHYSICAL EXAMINATION: VITAL SIGNS: Blood pressure is 112/58, heart rate 76, respiratory rate 16, temperature 97.8, pulse ox 97%. GENERAL: The patient is awake, alert, comfortable, not in distress. SKIN: Adequate turgor. HEENT: She has pinkish conjunctivae. Anicteric sclerae. NECK: No neck mass. No carotid bruits. No JVD. CHEST: No deformities. LUNGS: Clear breath sounds. HEART: Normal sinus rhythm. No murmur. No gallops. No rubs. ABDOMEN: Globular, soft, nontender. No masses. EXTREMITIES: No edema. No deformities. NEUROLOGIC: Moving all extremities. Oriented to 3 spheres. LABORATORY DATA: On July 16, 2019, white count 6.9, hemoglobin 12.7, sodium 133, potassium 4.7, chloride 100, carbon dioxide 26, BUN 21, creatinine 2.26. BNP 493. TSH 1.2. On July 09, 2019, sodium 134, potassium 4.9, chloride 106, carbon dioxide 25, BUN 26, creatinine 1.67, GFR 37 mL/minute, calcium 9.5. Urinalysis shows a specific gravity of 1.034, protein is 300, RBC 0-3, WBC 4-6. Random urine protein shows a value of 49. ASSESSMENT AND PLAN: 1. Acute kidney injury-superimposed prerenal azotemia. Diuretics have been placed on hold. She has been advised to discontinue her NSAIDs. 2. Proteinuria-previous urinalysis did not show any proteinuria. We will simply observe the proteinuria. We will consider semi quantitate input and excretion. She does have a history of a discoid lupus. However, the previous urinalysis was relatively benign. With the urinalysis this admission, it showed RBC of 0-3, WBC of 4-6, random urine protein was 49, and urinalysis showed urine protein 300. a. Please note that ultrasound done on July 16 showed no masses or obstruction. b. Agree with current management. It is possible that the patient's chronic renal failure may be underlying lupus which is less likely based on previews evaluation with this patient. She may have proteinuria for another reason. The only risk factor that she may have for chronic renal failure is that she did take NSAIDs on a chronic basis. 3. Mitral valve disease. Continue supportive care. Managed by her die cut operator. From a renal point of view, renal function is much improved. She can be followed up as an outpatient. Job ID: [id number]
--- NOTE | 2019-07-17 13:59 | DIS ---
DATE OF ADMISSION: 07/16/2019 DATE OF DISCHARGE: 07/17/2019 REASON FOR HOSPITALIZATION: Dehydration, acute kidney injury, and dizziness. SIGNIFICANT FINDINGS: The patient was found to have acute dehydration with acute kidney injury after she was recently discharged from the hospital on a cardiomyopathy regimen. PROCEDURES PERFORMED AND TREATMENTS RENDERED: The patient was admitted to medical unit with telemetry for close management. The patient was seen and evaluated by Cardiology and Nephrology - please see full consultation and progress notes for details. After maximum medical therapy and medication adjustments, the patient's renal function improved, and she was recommended safe for discharge by all specialists with close followup in the outpatient setting. CONDITION ON DISCHARGE: Stable. SPECIFIC INSTRUCTIONS FOR THE PATIENT AND FAMILY: 1. The patient was recommended to take all medications as directed, to be re-evaluated by Cardiology and Nephrology in the outpatient clinic in the next 5 to 7 days. 2. The patient was recommended to follow up with Cardiology in the next 5 to 7 days. 3. The patient was recommended to follow up with Nephrology in the next 5 to 7 days. 4. The patient was recommended to abstain from NSAIDs as these can worsen renal function. 5. The patient was recommended to drink a consistent amount of fluids and avoid dehydration. The patient also recommended to not consume too much fluids and avoid congestive heart failure. 6. The patient was recommended to return to acute care hospital immediately if signs or symptoms return, worsen, or any other new symptoms occur. 7. The patient had a greater than expected and more rapid than expected recovery in a short amount of time and was recommended safe for discharge by all specialists after admission to hospital for less than 48 hours despite warranting inpatient criteria on admission. DISCHARGE MEDICATIONS: Please see full discharge medication list for details. Discharge medications: 1. Vitamin D3, 4000 units one tablet p.o. daily. 2. Zyrtec 10 mg daily p.r.n. allergy symptoms. 3. Carvedilol 3.125 mg one tablet p.o. b.i.d. 4. Aspirin 81 mg one tablet p.o. daily. 5. Acetaminophen 650 mg p.o. q.4 hours p.r.n. pain or fever. 6. Crestor 40 mg one tablet p.o. at bedtime. 7. Protonix 40 mg one tablet p.o. daily. 8. Methyl salicylate/menthol (Bengay nongreasy cream) 0.5 mg applied topically 4 times per day p.r.n. 9. Plaquenil 100 mg one tablet p.o. daily. 10. Plavix 75 mg one tablet p.o. daily. 11. Vitamin B complex. The following medications were recommended to be held until they can be re-evaluated by her primary noise abatement engineer, Dr. Pop in the outpatient clinic early next week. 1. Entresto - stop until told to restart by Dr. Pop. 2. Spironolactone - stop until told to restart by Dr. Pop. Both of these medications were stopped by Cardiology in the inpatient setting secondary to acute kidney injury. Greater than 40 minutes spent coordinating care and discharge process for this patient. Job ID: [id number]
== END 2019-07-17 10:35 | disposition home or self-care (01) | DRG 683 ==
LOC: ERS 10:37 → 2NO 15:39
PROVIDERS: ADMIT Internal Medicine; ATTEND Internal Medicine
DX: N17.9 Acute kidney failure, unspecified (principal); I42.9 Cardiomyopathy, unspecified; I13.0 Hypertensive heart and chronic kidney disease with heart failure and stage 1 through stage 4 chronic kidney disease, or unspecified chronic kidney disease; I50.22 Chronic systolic (congestive) heart failure; I69.952 Hemiplegia and hemiparesis following unspecified cerebrovascular disease affecting left dominant side; I08.1 Rheumatic disorders of both mitral and tricuspid valves; L93.0 Discoid lupus erythematosus; Z96.652 Presence of left artificial knee joint; E78.5 Hyperlipidemia, unspecified; I25.10 Atherosclerotic heart disease of native coronary artery without angina pectoris; E86.0 Dehydration; E78.00 Pure hypercholesterolemia, unspecified; K21.9 Gastro-esophageal reflux disease without esophagitis; M19.90 Unspecified osteoarthritis, unspecified site; M10.9 Gout, unspecified; N18.3 Chronic kidney disease, stage 3 (moderate); D63.1 Anemia in chronic kidney disease; I69.920 Aphasia following unspecified cerebrovascular disease; Z90.710 Acquired absence of both cervix and uterus; Z98.42 Cataract extraction status, left eye; Z98.41 Cataract extraction status, right eye; Z90.49 Acquired absence of other specified parts of digestive tract; Z87.891 Personal history of nicotine dependence; Z88.1 Allergy status to other antibiotic agents; Z79.02 Long term (current) use of antithrombotics/antiplatelets; Z79.82 Long term (current) use of aspirin; Z79.899 Other long term (current) drug therapy
CPT/HCPCS: 36415; 71045; 76770; 80048; 80053; 81003; 81015; 82550; 82570; 83605; 83880; 84156; 84443; 85025; 93005; 96360; J1644; J2920

== ENCOUNTER 2019-09-25 12:37 | Outpatient (CLI) | payer MEDICARE ==
--- NOTE | 2019-09-25 16:36 | NM ---
PLANAR CARDIAC IMAGING WITH TECHNETIUM 99M PYP: 09/25/19 HISTORY: Cardiac amyloidosis. RADIOPHARMACEUTICAL: 15 millicuries technetium 99m PYP injected intravenously. FINDINGS: Planar images of the chest were obtained one hour following the intravenous administration of the rad iopharmaceutical. There is diffuse uptake of the tracer by the heart. The cardiac uptake is greater than that of the ribs (grade III). 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 POS: MARTHA
== END 2019-09-25 12:38 | disposition home or self-care (01) ==
LOC: NM 12:37
PROVIDERS: ATTEND Internal Medicine Cardiovascular Disease
DX: E85.9 Amyloidosis, unspecified (principal)
CPT/HCPCS: 78802; 78803; A4641; A9538

== ENCOUNTER 2020-02-15 19:21 | Inpatient (IN) | payer MEDICARE, OTHER ==
[~2020-02-15 19:21] MED LIST changes: +DOBUTamine 250 MG/20 ML VIAL ONE; -ISOVUE-370 76%-LOCM 1 ML ONE
--- NOTE | 2020-02-15 19:58 | RAD ---
Chest AP view INDICATION: Dyspnea and shortness of breath COMPARISON: July 16, 2019 FINDINGS: Lungs: The lungs are clear Cardiac silhouette: There is stable moderate cardiomegaly Pulmonary vasculature: Normal Pleural spaces: No pleural effusion or pneumothorax is demonstrated. Upper abdomen: No abnormality seen. Osseous structures: Bilateral rotator cuff repairs are similar appearing. Moderate degenerative march ge of both glenohumeral joints is present. There is moderate multilevel spondylosis of the thoracic spine. Additional findings: None. IMPRESSION: Stable moderate cardiomegaly.
[2020-02-15 20:25] LABS: #Eosinphils 0.1 thou/uL (0.0-0.7); #Lymphocytes 1.6 thou/uL (1.20-3.40); #Monocytes 0.4 thou/uL (0.11-0.59); #Neutrophils 3.2 thou/uL (1.40-6.50); %Basophils 0.7 % (0.0-1.0); %Eosinophils 0.9 % (0.0-10.0); %Lymphocytes 30.6 % (21.0-51.0); %Monocytes 7.8 % (0.0-10.0); Hemoglobin 16.1 g/dL (12.0-16.0); Mean Corpuscular HGB CONC 31.9 g/dL (32.0-36.0); Mean Corpuscular Hemoglobin 25.7 pg (27.0-31.0); Mean Corpuscular Volume 80.6 fL (78.0-98.0); Mean Platelet Volume 11.1 fL (7.4-10.4); Platelet Count 204 thou/uL (130-400); RBC Distribution Width 20.3 % (11.5-14.5); Red Blood Cell (RBC) Count 6.29 mill/uL (4.20-5.40); White Blood Cell (WBC) Count 5.4 thou/uL (4.8-10.8)
[2020-02-15 20:38] LABS: ALT (SGPT) 33 U/L (8-55); AST (SGOT) 63 U/L (5-34); Albumin 4.4 g/dL (3.4-4.8); Alkaline Phosphatase 37 U/L (40-110); Anion Gap 23 mmol/L (10-20); BUN (Urea Nitrogen) 15 mg/dL (9.8-20.1); Bilirubin, Total 3.1 mg/dL (0.2-1.2); Calc. Creatinine Clearance 0 mL/min (70-130); Calcium 10.8 mg/dL (7.8-10.44); Carbon Dioxide 17 mmol/L (23-31); Chloride 103 mmol/L (98-107); Estimated GFR-MDRD 31; Globulin 3.6 g/dL (2.4-3.5); Glucose 100 mg/dL (83-110); Lipase 28 U/L (8-78); Magnesium 2.3 mg/dL (1.6-2.6); Potassium 4.9 mmol/L (3.5-5.1); Sodium 138 mmol/L (136-145)
[2020-02-15 21:03] LABS: CKMB 1.7 ng/mL (0-6.6)
[2020-02-15] MEDS ORDERED: Cefepime 2 GM VIAL ONE (21:31)
[2020-02-15] MEDS ORDERED: Vancomycin 1 GM/200 ML BAG ONE (21:33)
[2020-02-15 21:35] LABS: Bilirubin 1+ (Negative); Blood, Urine Negative (Negative); Clarity Turbid (Clear); Glucose, Urine (Dipstick) Normal (Negative); Ketone, Urine Trace mg/dL (Negative); Leukocyte Negative Leu/uL (Negative); Nitrite Negative (Negative); Protein, Urine (Dipstick) 200 mg/dL (Neg-Trace); RBC/HPF 0-3 HPF (0-3); Specific Gravity, Urine 1.019 (1.002-1.036); Squamous Epithelial 0-3 HPF (0-3); Urobilinogen 6 mg/dL (Less than 2); pH, Urine 5.5 (5.0-9.0)
[2020-02-15 21:37] LABS: Bacteria/HPF 1+ HPF (None Seen)
[2020-02-15 23:24] LABS: Troponin I 0.186 ng/mL (< 0.028)
[2020-02-15 23:36] LABS: Lactic Acid 5.9 mmol/L (0.5-2.2)
[2020-02-16] MEDS ORDERED: Guaifenesin DM 100-10/5 ML UDCUP PO PRN (01:07)
[2020-02-16] MEDS ORDERED: HYDROcodone/Acetaminophen 5/325 mg Tablet PO PRN (01:07)
[2020-02-16] MEDS ORDERED: Promethazine HCl 12.5 MG in Sodium Chloride 0.9% 50 ML IVPB PRN (01:07)
[2020-02-16] MEDS ORDERED: hydrALAZINE 20 MG/ML VIAL SLOW IVP PRN (01:07)
[2020-02-16] MEDS ORDERED: Labetalol HCl 100 MG/20 ML VIAL SLOW IVP PRN (01:07)
[2020-02-16] MEDS ORDERED: Vancomycin 1 GM in Premix Bag 1 BAG IVPB SCH (01:07)
[2020-02-16] MEDS ORDERED: cloNIDine 0.1 MG TAB PO PRN (01:07)
[2020-02-16] MEDS ORDERED: Bisacodyl 10 MG SUPP PR PRN (01:10)
[2020-02-16] MEDS ORDERED: Senokot S 8.6-50 MG TAB PO PRN (01:10)
[2020-02-16] MEDS ORDERED: Bisacodyl 5 MG TAB PO PRN (01:10)
--- NOTE | 2020-02-16 01:14 | PDOC.HHP ---
Hospitalist HPI - History of Present Illness Dyspnea, shortness of breath, lightheadedness History of Present Illness: Patient is a 74 year old female with PMH CHF w/ EF 25% previously on lifevest, CKD, HTN, lupus, HLD, CAD, CVA, recurrent GI bleed who presents to ED brought by caregiver for 1-2 days generalized weakness, shortness of breath, denies fever/chest pain/abdominal pain, no dysuria, denies known covid or other sick contacts, +nonproductive cough. Has systolic CHF w/ last ef 25%, seen by nephrology and cardiology last admission. In ED, tachypnea and tachycardia noted , lactic acid 5.5, increased to 5.9, recieved IVF, UA weakly positive, given broad spectrum abx and cultures, patient to be admitted for workup up sepsis with unclear source. Hospitalist ROS - Review of Systems Constitutional: reports: fever, chills, sweats, weakness, malaise Eyes: denies: pain, vision change, conjunctivae inflammation, eyelid inflammation, redness, other ENT: denies: ear pain, ear discharge, nose pain, nose discharge, nose congestion , mouth pain, mouth swelling, throat pain, throat swelling, other Respiratory: reports: shortness of breath. denies: cough, dry, hemoptysis, SOB with excertion, pleuritic pain, sputum, wheezing, other Cardiovascular: reports: light headedness. denies: chest pain, palpitations, orthopnea, paroxysmal noc. dyspnea, edema, other Gastrointestinal: denies: nausea, vomiting, abdominal pain, diarrhea, constipation, melena, hematochezia, other Genitourinary: denies: dysuria, frequency, incontinence, hematuria, retention, other Musculoskeletal: denies: neck pain, shoulder pain, arm pain, back pain, hand pain, leg pain, foot pain, other Skin: denies: rash, lesions, shobha, bruising, other Neurological: denies: weakness, numbness, incoordination, change in speech, confusion, seizures, other All other systems reviewed; all pertinent +/- noted in HPI/Subj - Medication Medications: aspirin oral Vielka Feb 15, 2020 19:54 IZABELLA Dia, Mirta TABLET : Strength - 81 mg : ORAL Patient Dose: 81 mg Oral once a day (in the morning). Plavix Sun Feb 15, 2020 19:54 IZABELLA Dia Alexandra tablet : Strength - 75 mg : ORAL Patient Dose: 75 mg Oral once a day (in the morning). escitalopram oxalate SunFeb 15, 2020 19:56 IZABELLA Dia Alexandra tablet : Strength - 10 mg : ORAL Patient Dose: 1 tab(s) Oral once a day (at bedtime). furosemide oral SunFeb 15, 2020 19:56 IZABELLA Dia Alexandra tablet : Strength - 20 mg : ORAL Patient Dose: 1 tab(s) Oral 2 times a day. simvastatin SunFeb 15, 2020 19:56 IZABELLA Dia Alexandra tablet : Strength - 40 mg : ORAL Patient Dose: 1 tab(s) Oral once a day (in the evening). ZyrTEC SunFeb 15, 2020 19:56 IZABELLA Dia Alexandra tablet : Strength - 10 mg : ORAL Patient Dose: 1 tab(s) Oral once a day. B Complex oral SunFeb 15, 2020 19:57 IZABELLA Dia Alexandra tablet extended release : ORAL Patient Dose: 1 tab(s) Oral once a day. cholecalciferol (vitamin D3) oral SunFeb 15, 2020 19:58 IZABELLA Dia Alexandra tablet : Strength - 2,000 unit : ORAL Patient Dose: 2000 units Oral once a day. cholecalciferol (vitamin D3) oral SunFeb 15, 2020 19:58 IZABELLA Dia Alexandra tablet : Strength - 3,000 unit : ORAL Patient Dose: 3000 units Oral once a day. hydroxychloroquine SunFeb 15, 2020 19:59 IZABELLA Dia Alexandra tablet : Strength - 200 mg : ORAL Patient Dose: 1 tab(s) Oral once a day. rosuvastatin SunFeb 15, 2020 19:59 IZABELLA Dia Alexandra tablet : Strength - 40 mg : ORAL Patient Dose: 1 tab(s) Oral once a day. Hospitalist History - Past Medical History Musculoskeletal: reports: Osteoarthritis Rheumatologic: reports: Gout Renal/: reports: Chronic renal insuff Other Medical History: CAD CHF systolic HTN HLD CVA/TIA/stroke GERD GI bleed Lupus OA Gout CKD - Past Surgical History Past Surgical History: reports: Cholecystectomy, Cataract Removal, Hysterectomy , Other, Total Knee Replacement - Family History Family History: reports: hypertension - Social History Smoking Status: Unknown if ever smoked Alcohol: reports: None Drugs: reports: none - Exam General Appearance: NAD, awake alert Eye: PERRL, anicteric sclera ENT: normocephalic atraumatic, no oropharyngeal lesions, moist mucosa Neck: supple, symmetric, no JVD, no thyromegaly, no lymphadenopathy, no carotid bruit Heart: RRR, no murmur, no gallops, no rubs, normal peripheral pulses Respiratory: CTAB, no wheezes, no rales, no ronchi, normal chest expansion, no tachypnea, normal percussion Gastrointestinal: soft, non-tender, non-distended, normal bowel sounds, no palpable masses, no hepatomegaly, no splenomegaly, no bruit Extremities: no cyanosis, no clubbing, no edema Skin: normal turgor, no lesions, no rashes Neurological: cranial nerve grossly intact, normal sensation to touch, no weakness, no focal deficits, no new deficit Musculoskeletal: normal tone, normal strength, no muscle wasting Psychiatric: normal affect, normal behavior, A&O x 3 Hospitalist Results - Labs Result Diagrams: 02/15/20 20:04 02/15/20 20:03 Lab results: WBC 5.4 thou/uL (4.8-10.8) 02/15/20 20:04 Hgb 16.1 g/dL (12.0-16.0) H 02/15/20 20:04 Hct 50.7 % (36.0-47.0) H 02/15/20 20:04 MCV 80.6 fL (78.0-98.0) 02/15/20 20:04 Plt Count 204 thou/uL (130-400) 02/15/20 20:04 Neutrophils % 60.0 % (42.0-75.0) 02/15/20 20:04 Sodium 138 mmol/L (136-145) 02/15/20 20:03 Potassium 4.9 mmol/L (3.5-5.1) 02/15/20 20:03 Chloride 103 mmol/L (98-107) 02/15/20 20:03 Carbon Dioxide 17 mmol/L (23-31) L 02/15/20 20:03 BUN 15 mg/dL (9.8-20.1) 02/15/20 20:03 Creatinine 1.90 mg/dL (0.6-1.1) H 02/15/20 20:03 Glucose 100 mg/dL (83-110) 02/15/20 20:03 Lactic Acid 5.9 mmol/L (0.5-2.2) H* 02/15/20 22:53 Calcium 10.8 mg/dL (7.8-10.44) H 02/15/20 20:03 Total Bilirubin 3.1 mg/dL (0.2-1.2) H 02/15/20 20:03 AST 63 U/L (5-34) H 02/15/20 20:03 ALT 33 U/L (8-55) 02/15/20 20:03 Alkaline Phosphatase 37 U/L (40-110) L 02/15/20 20:03 CK-MB (CK-2) 1.7 ng/mL (0-6.6) 02/15/20 20:04 Troponin I 0.186 ng/mL (< 0.028) H 02/15/20 22:53 B-Natriuretic Peptide 752.4 pg/mL (0-100) H 02/15/20 20:04 Serum Total Protein 8.0 g/dL (6.0-8.3) 02/15/20 20:03 Albumin 4.4 g/dL (3.4-4.8) 02/15/20 20:03 Lipase 28 U/L (8-78) 02/15/20 20:03 Urine Ketones Trace mg/dL (Negative) A 02/15/20 21:10 Urine Blood Negative (Negative) 02/15/20 21:10 Urine Nitrite Negative (Negative) 02/15/20 21:10 Ur Leukocyte Esterase Negative Yolanda/uL (Negative) 02/15/20 21:10 Urine RBC 0-3 HPF (0-3) 02/15/20 21:10 Urine WBC 11-20 HPF (0-3) A 02/15/20 21:10 Ur Squamous Epith Cells 0-3 HPF (0-3) 02/15/20 21:10 Urine Bacteria 1+ HPF (None Seen) A 02/15/20 21:10 Hospitalist H&P A/P - Plan Plan: Patient is a 74 year old female with PMH CHF w/ EF 25% previously on lifevest, CKD, HTN, lupus, HLD, CAD, CVA, recurrent GI bleed who presents to ED brought by caregiver for 1-2 days generalized weakness, shortness of breath # severe sepsis w/ unknown source - presentation could suggest viral illness, also UA weakly positive however nothing strongly convincing as a source of significant lactic acidosis yet - admit to telemetry - follow up blood, urine, covid swab - IVF ordered, follow up repeat lactic acid - empiric vancomycin/zosyn # chronic systolic heart failure - EF 25% last it was checked, previously had lifevest, seen by Dr Galeano last visit, consult cardiology and order new echo # lupus - continue plaquenil # immunocompromised status - aware, continue above treatment for sepsis # HTN - PRN meds ordered, hold scheduled meds given sepsis # history of CAD, elevated troponin - consult cardiology, continue ASA and plavix and other meds as appropriate given sepsis # CKD - previous Cr 1.6, seen by Dr Redding last admission, trend BMP and manage sepsis as above # history of GI bleed - no clinical bleeding now, cautiously continue DVT ppx and PPI ordered # DVT ppx
[2020-02-16] MEDS: Ondansetron PF 4 MG/2 ML Vial IVP PRN (02:27)
[2020-02-16] MEDS ORDERED: Albuterol 200 PUFF (6.7GM INHALER) INH PRN (03:10)
[2020-02-16 04:53] LABS: Lactic Acid 4.6 mmol/L (0.5-2.2)
[2020-02-16 04:54] LABS: Anion Gap 18 mmol/L (10-20); BUN (Urea Nitrogen) 15 mg/dL (9.8-20.1); Calc. Creatinine Clearance 27 mL/min (70-130); Calcium 9.3 mg/dL (7.8-10.44); Carbon Dioxide 18 mmol/L (23-31); Chloride 108 mmol/L (98-107); Estimated GFR-MDRD 36; Glucose 86 mg/dL (83-110); Potassium 4.4 mmol/L (3.5-5.1); Sodium 140 mmol/L (136-145); Troponin I 0.211 ng/mL (< 0.028)
[2020-02-16 05:13] LABS: Band 2 % (5-11); Lymphocytes 14 % (21-51); MDiff Complete? YES; Mean Corpuscular HGB CONC 31.4 g/dL (32.0-36.0); Mean Corpuscular Hemoglobin 25.1 pg (27.0-31.0); Mean Corpuscular Volume 79.9 fL (78.0-98.0); Mean Platelet Volume 11.1 fL (7.4-10.4); Monocytes 2 % (0-10); Neutrophil 82 % (42-75); Platelet Count 180 thou/uL (130-400); Platelet Morphology Comment Appears Adequate; RBC Distribution Width 20.2 % (11.5-14.5); RBC Morphology Normal; Red Blood Cell (RBC) Count 5.57 mill/uL (4.20-5.40); White Blood Cell (WBC) Count 6.3 thou/uL (4.8-10.8)
[2020-02-16] MEDS: Piperacillin/Tazobactam 3.375 GM in Sodium Chloride 0.9% 100 ML IVPB SCH ×3 (05:32→17:53)
[2020-02-16 07:41] LABS: Troponin I 0.211 ng/mL (< 0.028)
[2020-02-16] MEDS ORDERED: Hydroxychloroquine Sulfate 200 MG TAB PO SCH (09:00)
[2020-02-16] MEDS ORDERED: Carvedilol 3.125 MG TAB PO SCH (09:00)
[2020-02-16] MEDS: Aspirin 81 mg Enteric Coated Tablet PO SCH (09:19)
[2020-02-16] MEDS: Famotidine 20 MG TAB PO SCH (09:19)
[2020-02-16] MEDS: Clopidogrel Bisulfate 75 MG TAB PO SCH (09:20)
[2020-02-16] MEDS: Spironolactone 25 MG TAB PO SCH ×2 (09:20→20:38)
[2020-02-16] MEDS: Enoxaparin Sodium 30 MG/0.3 ML SYRINGE SC SCH (09:20)
[2020-02-16] MEDS: DOBUTamine 500 mg/250 ml 250 ML IVPB SCH (13:51)
[2020-02-16 14:05] LABS: Troponin I 0.229 ng/mL (< 0.028)
--- NOTE | 2020-02-16 17:15 | CON ---
DATE OF CONSULTATION: 02/16/2020 PRIMARY CARE DOCTOR: Dr. Luna. PRIMARY PLUCK SEPARATOR: Dr. Redding. PRIMARY SHEET SORTER: Linda Pop MD AMYLOIDOSIS SPECIALIST: Dr. Moreno in [place]. REASON FOR CARDIOLOGY CONSULT: Congestive heart failure. HISTORY OF PRESENT ILLNESS: Ms. Magdaleno is a very pleasant 74-year-old female with a significant history of nonischemic cardiomyopathy and chronic systolic heart failure with EF 25% to 30%, amyloidosis, chronic kidney disease, hypertension, lupus, hyperlipidemia, CAD, and status post CVA in May 2019 and recurrent GI bleed. She has seen Dr. Pop for chronic shortness of breath and chronic systolic heart failure. The patient was found to have amyloidosis and she has been seen by Dr. Moreno, who is amyloidosis specialist in [place]. She underwent right-sided cardiac catheterization for amyloidosis with biopsy and she was told that she is a good candidate for transplant and also she was recommend to have IV treatment, which she has not had done at this moment yet. She was doing stable until 2 days ago, when she started having worsening of shortness of breath with weakness. Yesterday, her shortness of breath became severely worsened with severe weakness. Due to the reasons, the patient was transferred to the emergency department for further evaluation and treatment and waiting for COVID-19 rule out. This report is based on telephone interview with the patient over the phone and also medical record review due to COVID-19 rule out. At this moment, the patient has some breathing treatment. Shortness of breath is stable with room air. She has been on Aldactone twice a day, which prescribed by Dr. Moreno in [place]. She denied any chest pain , heaviness, tightness, dizziness, edema in the lower extremities. She had lightheadedness yesterday with movement. The patient had a normal cardiac catheterization in July 2017. Last echocardiogram at the doctor's office is December 2019 with EF 25% to 30%, severe LVH , amyloidosis, right ventricle hypertrophy, moderate LAE and RY, and hoqpwjmx-[id number]-ewsqfp mitral valve regurgitation, pleural effusion, moderate pulmonary valve insufficiency, severe tricuspid regurgitation, mild aortic valve insufficiency, elevated RVSP, and moderate pulmonary hypertension. PAST MEDICAL HISTORY: Osteoarthritis, gout, chronic renal, CKD, CAD, chronic systolic heart failure, hypertension, hyperlipidemia, status post CVA in May 2012 and 2018, GERD, GI bleed, lupus, and amyloidosis. PAST SURGICAL HISTORY: Cholecystectomy, cataract, hysterectomy, total knee replacement, status post right cardiac catheterization in January 2020, which determined the patient's diagnosis of amyloidosis. FAMILY HISTORY: There is a significant family history of hypertension in her family. SOCIAL HISTORY: The patient is . The patient is living with her . She has children who are living well. She denied EtOH, tobacco, or illicit drug abuse. DICTATION ENDS HERE Job ID: [id number]
--- NOTE | 2020-02-16 18:42 | CON ---
DATE OF CONSULTATION: 02/16/2020 REASON FOR CONSULT: Acute on chronic heart failure. HISTORY OF PRESENT ILLNESS: Mrs. 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 She had a history of heart failure. Her walking distance was decreased down to a block and then half block and now she cannot even walk half a football field. She has biopsy proven amyloidosis diagnosed at [facility] in [place], [place]. They also did a right heart catheterization. At the right heart catheterization that was done within the last 2 weeks, her cardiac index was very low at 1.07. They were very concerned about this. Her heart being that bad, amyloid medical treatment may not work at all. So, they were strongly considering to bring her back for urgent heart transplant evaluation. She was at her usual state of health earlier this week where she only can walk short distances. However, she became worse. She became much more short of breath. She needed three pillows more to sleep. Eventually she needed to sleep straight up. Her severe shortness of breath became so bad that she asked her to take her to the ER yesterday. She does have a 3-month history of loose stools. This has been off and on. It is a part of the amyloidosis type of process. After she felt severely short of breath, then she had abdominal pain and then she had a bout of diarrhea and she had nausea also. Since yesterday, she had diarrhea just 3 times. It is uncontrolled but that is within the last 24 hours. She has a high lactic acid at admission. She was thought to be septic, so antibiotics and IV fluids were given. The lactic acid decreased slightly. She also had a low blood pressure. When dobutamine at 2.5 mcg/kg was started, her blood pressure increased about at least 10 mmHg. However, her blood pressure dropped back down low to mid 80s. Dobutamine was titrated up to 5 mcg/kg/minute. Afterwards, her systolic blood pressure came back to about 110. MEDICAL HISTORY: 1. Amyloid cardiomyopathy, heart failure with reduced ejection fraction, this was biopsy proven in January 2020. 2. History of hypertension. 3. History of hyperlipidemia. 4. History of stroke. 5. 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 6. Gout. 7. Cardiac renal syndrome. SOCIAL HISTORY: She stopped smoking 50 years ago. She denied alcohol use. She denied illicit drug use. 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 She currently happily lives with her for a long time. She has good family support. Both her and her daughter can stay with her daily for least 6 weeks if it needs to be. FAMILY HISTORY: Her father of myocardial infarction at age 74. Her mother is still alive at age 95. REVIEW OF SYSTEMS: GENERAL: There is no fever, chills, or cough. However, she has profound fatigue. HEENT: There is no change in vision, hearing, or swallowing. PULMONARY: Please see HPI. CARDIAC: Please see HPI. GI: Please see HPI. : She can urinate without difficulties. MUSCULOSKELETAL: There is no complaint of joint or muscle pains. INTEGUMENT: There are no complaints of new skin lesions. NEUROLOGIC: There is no new focal deficits or weaknesses. MEDICATIONS: 1. Aspirin 81 mg day daily. 2. Carvedilol 1.5 mg bid 3. Plavix 75 mg daily. 4. Dobutamine currently at 5 mcg/kg/minute. 5. Enoxaparin 30 mg SC daily. 6. Pepcid 20 mg daily. 7. Hydroxychloroquine 200 mg daily. 8. Protonix 40 mg daily. 9. Zosyn at 3.375 g IV q.6 hours. 10. Rosuvastatin 40 mg p.o. at bedtime. 11. Spironolactone 25 mg q.a.m. and 50 mg q.p.m. PHYSICAL EXAMINATION: VITAL SIGNS: Her latest vital signs are heart rate about 119, blood pressure 118/75. This is on dobutamine 5 mcg/kg/minute. GENERAL: She looks fatigued, reclining in bed with soft voice and a little bit short of breath. HEENT: EOMI. Oropharynx has moist mucosa. NECK: Her JVP is elevated to angle of jaw a little bit higher of about 15 cm. PULMONARY: She has good air movement and clear to auscultation bilaterally. CARDIAC: Tachycardia. S1 and S2. There is 3/6 holosystolic murmur at the apex with radiation to the left axilla. There is also 3/6 holosystolic murmur at the left upper sternal border. There is a prominent right ventricular heave. However, there are no rubs. The rate is little bit too fast to discern gallop. ABDOMEN: Mildly distended. There is some fluid wave like and there is definite pulsatile liver. EXTREMITIES: Lower extremities, there is about 0.5 cm pitting edema but not greatly so from her feet to about one-third way up to her knee, but there is lots of loose skin. LABORATORY DATA: Sodium 140, potassium 4.4, chloride 108, bicarbonate 18, BUN 15, creatinine 1.69. Her lactic acid is 4.6. Her troponin is 0.229. Her white cell count is 6.3, hemoglobin is 14, and platelet count is 180. Her ECG shows atypical atrial flutter. Telemetry was reviewed. She has a mixture of rhythms. There is majority of what it appears to be atypical atrial flutter that is lower than 300. Other times it looks like sinus tachycardia. Atrial flutter on the telemetry matches the atrial flutter on the ECG. It is exactly paced. Her 2019 echo was also reviewed. 1. It showed LV VASQUEZ 4.1 cm in diameter in diastole. 2. LVEF ~ 25% 3. She has LVH about 1.3 cm posterior wall thickness 4. She has moderate mitral regurgitation. 5. There is a dilated left atrium. 6. On a cross-sectional view, she has enlarged right ventricle. However, on apical view, we could not see the lateral wall of the right ventricle, so right ventricle in apical view could not be properly assessed. 7. She has moderate tricuspid regurgitation with peak gradient pressure of 57mHg. She has very dilated inferior vena cava, so she is likely to have about 70 mmHg of PA pressure. ASSESSMENT: 74-year-old lady is likely experiencing acute on chronic heart failure due to amyloidosis. She lacks symptoms and signs for infection. The high lactic acid not responsive to fluid resuscitate also suggests this. The strong RV heave, pulsatile liver and total bilirubin elevated at 3.1 suggest that she has significant amount of right ventricular dysfunction also. Just at this point, we need to augment her cardiac output to save the rest of her organs and finding a way to improve her heart. As mentioned, [facility] Col[facility] in [place] believes that medical treatment for amyloidosis is probably too late. Consequently, the best thing to do will be transfer to a center, who can evaluate her for urgent heart transplant. Please see the following for recommendations. RECOMMENDATIONS: 1. Continue dobutamine at 5 mcg/kg/minute. 2. Stop hydroxychloroquine because this can cause more arrhythmias and it is known to directly cause cardiomyopathy since she has been taking it for 5 years. It is probably contributing to her cardiomyopathy. 3. If her pressure holds, we can add on milrinone at low dose of 0.125 mcg/kg/ minute and titrate up to 0.25 mcg/kg per minute, but I will come in and do this. This will allow smaller dose of dobutamine easier for her heart. 4. If her atrial flutter gets out of control, going to 130 or 140, then we will need to start low-dose amiodarone. In that case, we will do amiodarone 1 mg/minute for first 6 hours, then afterwards continue at 0.5 mg/minute indefinitely. 5. We will initiate a transfer process with [facility]. The accepting doctor is Dr. Ad Moreno. He will be the accepting doctor. They will like to have the patient stabilize over there and work on a process of urgent heart transplant evaluation. It has been a pleasure taking care of Mrs. Magdaleno. If you any questions, please give me a call. Job ID: [id number] MTDD
[2020-02-16] MEDS: Carvedilol 3.125 MG TAB PO SCH (20:38)
[2020-02-16] MEDS ORDERED: Rosuvastatin 20 MG TAB PO SCH (21:00)
[2020-02-16 23:16] LABS: Vancomycin, Random 10.6 ug/mL (See Comment)
--- NOTE | 2020-02-16 23:28 | CON ---
DATE OF CONSULTATION: ADDENDUM: This is an addendum to the note already dictated by my nurse practitioner. Please refer the notes already dictated by my practitioner. HISTORY OF PRESENT ILLNESS: Ms. Magdaleno is a 74-year-old female, who has a long history of congestive heart failure, both systolic and diastolic. 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 She has a history of mitral valve regurgitation. She also has a history of lupus. She has experienced a CVA in the past. She has a history of hypertension. She presented to the hospital yesterday after she complained of increasing shortness of breath last night and was admitted to the hospital. She was originally thought to possibly have some pneumonia. Chest x-ray is unremarkable with no indication that she has pneumonia. White blood cell count is not significantly elevated. She did have a mild urinary tract infection with 1+ bacteria in the urine and is being treated with antibiotics for the UTI. She also was found to be acidotic with lactic acidosis. Her laboratory data showed lactic acid of 5.9 on admission and now is down to 4.6. Her creatinine was 1.69. Bicarb was 18. Sodium was 140. Troponin-I is indeterminate with cardiac enzymes that showed troponin of 0.018, increased up to 0.21. Her WBC was 6.3, hemoglobin was 14, and platelet count was 180,000. She did have an evaluation here in [place]. Also, she recently had evaluation at [facility] in [place]. Her most recent echocardiogram was in August 2018, which showed an ejection fraction of 40% to 45%. There has been some discussion in [place] about possible cardiac transplant due to the amyloidosis. At this time , she is comfortable sitting on the side of the bed without any complaints. She had no lower extremity edema and her chest is clear. Her heart rate however is tachycardic, appears to be an atrial tachycardia. This may be due to trying to compensate for the acidosis. At this time, I will try to increase her cardiac output by giving dobutamine. If she becomes too tachycardic, we will need to try amiodarone to slow the heart rate. She had previously been on Coreg when this medicine has been hold due to the hypotension. PAST MEDICAL HISTORY: Please refer the notes dictated by the nurse practitioner. SOCIAL HISTORY: Please refer the notes dictated by the nurse practitioner. FAMILY HISTORY: Please refer the notes dictated by the nurse practitioner. REVIEW OF SYSTEMS: Please refer the notes dictated by the nurse practitioner. ALLERGIES: PLEASE REFER THE NOTES DICTATED BY THE NURSE PRACTITIONER. MEDICATIONS: Please refer the notes dictated by the nurse practitioner. PHYSICAL EXAMINATION: GENERAL: Reveals a middle-aged elderly female, who is in no acute distress at this time. VITAL SIGNS: Her blood pressure is 97/73. She is afebrile. Heart rate is 116 and irregular shows atrial tachycardia, respiratory rate is about 20, O2 saturation is 100% on room air. HEENT: Shows the head to be normocephalic and atraumatic. Carotid pulses are present. She did not have any significant JVD, but she is sitting straight up on the side of the bed. CHEST: Clear to auscultation. CARDIOVASCULAR: Reveals a mild tachycardia with S1, S2. She does have a systolic murmur at the apex compatible with her mitral valve regurgitation at least a 3/6 systolic murmur. ABDOMEN: Soft and nontender. I did not palpate any significant masses. Her liver in the past has been slightly enlarged, but did not feel that today. EXTREMITIES: Showed no clubbing, cyanosis, or edema. Pedal pulses are present. NEUROLOGICAL: She appears to be intact. She had suffered a CVA in the past and she is somewhat slow to speak; however, otherwise, I did not notice any gross focal motor deficits at this time. LABORATORY DATA: Her other pertinent laboratory data showed a WBC of 6.3, hemoglobin was 14, and platelet count of 180,000. Sodium was 140, potassium was 4.4, chloride was 108 with a bicarb of 18, and blood sugar was 86. Lactic acid as noted above at 4.6, and troponin-I was 0.211. Her urinalysis showed 1+ bacteria in the urine. Her EKG shows what appears to be atrial tachycardia with a heart rate in the one teens. IMPRESSION: 1. Probably congestive heart failure exacerbation, both diastolic and systolic with decreased cardiac output. We will repeat the echocardiogram for evaluation of left ventricular systolic function. We will start low-dose dobutamine to see if we can increase the cardiac output due to the lactic acidosis causing decreased perfusion due to the poor cardiac output. We will ask Dr. Vaughn, the congestive heart failure specialist, to visit with the patient. 2. History of lupus, appears to be unstable at this time. No significant flare ups recently. 3. History of cerebrovascular accident in the past. She does not have any new symptoms. 4. Urinary tract infection. This appears to be mild infection, being treated by antibiotics. May be able to stop one of the antibiotics. There is no indication that she has pneumonia. 5. History of hypertension, this is under very good control at this time with medications. Actually, she is on the low side. This may be due to infection or may be due to worsening of her congestive heart failure or cardiac output, again we will repeat the echocardiogram. We will wait for the results of the study. She did have a cardiac catheterization in 2017, which showed normal coronary arteries. 6. Mitral valve regurgitation, this is most likely moderate. 7. Cardiac amyloidosis. She has been seen by Dr. Moreno in [place]. She will continue there. She saw him last and actually at that time had a myocardial biopsy and also at that time had a negative test for COVID. Thank you very much for allowing us to participate in care of this lady. Hopefully, she will improve with medical management. If she becomes too tachycardic, we may need to start amiodarone, but most likely she will not tolerate beta blockers at this time and would not be advisable to use beta blockers with the dobutamine. Job ID: [id number] [id number]
[2020-02-16] MEDS ORDERED: Vancomycin HCl 750 MG in Sodium Chloride 0.9% 250 ML 250 ML IVPB SCH (23:59)
[2020-02-17] MEDS: Piperacillin/Tazobactam 3.375 GM in Sodium Chloride 0.9% 100 ML IVPB SCH ×3 (00:37→11:57)
[2020-02-17 05:20] LABS: Anion Gap 14 mmol/L (10-20); BUN (Urea Nitrogen) 15 mg/dL (9.8-20.1); Calc. Creatinine Clearance 31 mL/min (70-130); Calcium 8.9 mg/dL (7.8-10.44); Carbon Dioxide 21 mmol/L (23-31); Chloride 110 mmol/L (98-107); Estimated GFR-MDRD 41; Potassium 3.7 mmol/L (3.5-5.1); Sodium 141 mmol/L (136-145)
[2020-02-17 05:29] LABS: Glucose 59 mg/dL (83-110)
[2020-02-17 05:44] LABS: Eosinophils 4 % (0-10); Lymphocytes 14 % (21-51); MDiff Complete? YES; Mean Corpuscular HGB CONC 33.5 g/dL (32.0-36.0); Mean Corpuscular Hemoglobin 26.5 pg (27.0-31.0); Mean Corpuscular Volume 79.2 fL (78.0-98.0); Monocytes 6 % (0-10); Neutrophil 74 % (42-75); Nucleated RBC 1 % (0); Platelet Count 164 thou/uL (130-400); Platelet Morphology Comment Appears Adequate; RBC Distribution Width 19.9 % (11.5-14.5); Red Blood Cell (RBC) Count 4.51 mill/uL (4.20-5.40); White Blood Cell (WBC) Count 4.6 thou/uL (4.8-10.8)
[2020-02-17] MEDS: Spironolactone 25 MG TAB PO SCH ×3 (07:49→22:18)
[2020-02-17] MEDS: Aspirin 81 mg Enteric Coated Tablet PO SCH (07:49)
[2020-02-17] MEDS: Carvedilol 3.125 MG TAB PO SCH (07:49)
[2020-02-17] MEDS: Clopidogrel Bisulfate 75 MG TAB PO SCH (07:50)
[2020-02-17] MEDS: Enoxaparin Sodium 30 MG/0.3 ML SYRINGE SC SCH (07:50)
[2020-02-17] MEDS: Famotidine 20 MG TAB PO SCH (07:51)
--- NOTE | 2020-02-17 08:01 | PDOC.HOSPP ---
- Subjective Encounter Date: 02/17/20 Encounter Time: 11:00 Subjective: Patient transfered to the ICU for Dobutamine drip. Breathing a bit better. No fever. No chest pain. - Objective Vital Signs & Weight: Vital Signs (12 hours) Temp Pulse Resp BP Pulse Ox 02/17/20 04:46 97.9 F 130 H 18 89/54 L 100 02/17/20 00:35 98.1 F 120 H 20 99/63 100 02/16/20 21:00 97.8 F 123 H 20 142/89 H 97 Weight Weight 127 lb 6.4 oz I&O: 02/16/20 02/17/20 02/18/20 06:59 06:59 06:59 Intake Total 720 1147 Output Total 200 600 Balance 520 547 Result Diagrams: 02/17/20 04:40 02/17/20 04:40 Additional Labs: Accuchecks 02/17/20 06:45 POC Glucose 90 Hospitalist ROS - Review of Systems Constitutional: denies: fever, chills Respiratory: reports: shortness of breath. denies: cough Cardiovascular: denies: chest pain, palpitations Gastrointestinal: denies: nausea, vomiting, abdominal pain - Medication Medications: Active Medications Generic Name Dose Route Start Last Admin Trade Name Freq PRN Reason Stop Dose Admin Aspirin 81 mg 02/16/20 09:00 02/17/20 07:49 Ecotrin PO 81 mg DAILY PADMAJA Administration Carvedilol 1.5625 mg 02/16/20 21:00 02/17/20 07:49 Coreg PO 1.5625 mg BID PADMAJA Administration Clopidogrel Bisulfate 75 mg 02/16/20 09:00 02/17/20 07:50 Plavix PO 75 mg DAILY PADMAJA Administration Enoxaparin Sodium 30 mg 02/16/20 09:00 02/17/20 07:50 Lovenox SC 30 mg 0900 PADMAJA Administration Famotidine 20 mg 02/16/20 09:00 02/17/20 07:51 Pepcid PO 20 mg QAM PADMAJA Administration Piperacillin Sod/Tazobactam 100 mls @ 200 mls/hr 02/16/20 06:00 02/17/20 06: 31 Sod 3.375 gm/ Sodium Chloride IVPB 100 mls Q6HR PADMAJA Administration Dobutamine HCl/Dextrose 250 mls @ 8.586 mls/hr 02/16/20 13:00 02/16/20 13:51 Dobutamine 500 Mg/250 Ml IVPB 250 mls INF PADMAJA Administration Protocol 5 MCG/KG/MIN Vancomycin HCl 750 mg/ Sodium 250 mls @ 250 mls/hr 02/16/20 23:59 02/17/20 00 :37 Chloride IVPB 250 mls 2359 PADMAJA Administration Ondansetron HCl 4 mg 02/16/20 01:07 02/16/20 02:27 Zofran IVP 4 mg Q6H PRN Administration Nausea/Vomiting use 1st Pantoprazole Sodium 40 mg 02/16/20 09:00 02/17/20 07:49 Protonix PO 40 mg DAILY PADMAJA Administration Rosuvastatin Calcium 40 mg 02/16/20 21:00 02/16/20 20:38 Crestor PO 40 mg HS PADMAJA Administration Sodium Chloride 10 ml 02/16/20 09:00 02/17/20 07:51 Flush - Normal Saline IVF 10 ml Q12HR PADMAJA Administration Spironolactone 25 mg 02/16/20 09:00 02/17/20 07:49 Aldactone PO 25 mg QAM PADMAJA Administration Spironolactone 50 mg 02/16/20 21:00 02/16/20 20:38 Aldactone PO 50 mg QPM PADMAJA Administration - Exam General Appearance: NAD, awake alert ENT: moist mucosa Heart: RRR, no murmur, no gallops, no rubs Respiratory: CTAB, no wheezes, no rales, no ronchi Gastrointestinal: soft, non-tender, non-distended, normal bowel sounds Psychiatric: normal affect, normal behavior, A&O x 3 Hosp A/P (1) Acute on chronic combined 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 Code(s): I50.43 - ACUTE ON CHRONIC COMBINED SYSTOLIC AND DIASTOLIC HRT FAIL Status: Acute (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 - ORGAN-LIMITED AMYLOIDOSIS; I43 - CARDIOMYOPATHY IN DISEASES CLASSIFIED ELSEWHERE Status: Chronic (3) HTN (hypertension), benign Code(s): I10 - ESSENTIAL (PRIMARY) HYPERTENSION Status: Chronic (4) Lupus (systemic lupus erythematosus) Code(s): M32.9 - SYSTEMIC LUPUS ERYTHEMATOSUS, UNSPECIFIED Status: Chronic (5) Hyperlipidemia Code(s): E78.5 - HYPERLIPIDEMIA, UNSPECIFIED Status: Chronic (6) History of CVA (cerebrovascular accident) Code(s): Z86.73 - PRSNL HX OF TIA (TIA), AND CEREB INFRC W/O RESID DEFICITS Status: Chronic (7) Gout Code(s): M10.9 - GOUT, UNSPECIFIED Status: Chronic (8) UTI (urinary tract infection) Status: Suspected - Plan Patient on dobutamine and milrinone per Dr. Vaughn Amiodarone if needed for tachyarrhythmias Zosyn for possible UTI, cultures pending, no evidence severe infection so d/c vancomycin Covid-19 test pending, likely negative Will need transfer to [facility] in [place] for possible heart transplantation. DVT proph: Lovenox and SCD GI proph: Protonix
[2020-02-17] MEDS ORDERED: Norepinephrine 8 MG/0.9% NS 250 ML ONE (09:46)
[2020-02-17] MEDS: Amiodarone 450 MG in Dextrose 5% in Water 250 ML IVPB SCH ×2 (11:05→19:34)
[2020-02-17 12:17] LABS: SARS-CoV-2 MS2 Positive; SARS-CoV-2 N Gene Positive; SARS-CoV-2 S Gene Positive; SARS-CoV-2 orf1ab Positive
[2020-02-17] MEDS: DOBUTamine 500 mg/250 ml 250 ML IVPB SCH (15:35)
--- NOTE | 2020-02-17 16:28 | CON ---
DATE OF CONSULTATION: HISTORY OF PRESENT ILLNESS: Bri Magdaleno is a 74-year-old female, who was transferred to the ICU with cardiomyopathy. She is 5 feet 1 inch, 127 pounds, BMI 24, who surprisingly has been in the hospital now for almost 3 days. She was discharged on 12/03/2019, two months ago with a diagnosis of renal failure, cardiomyopathy. She was readmitted to the hospital with the above-mentioned issues with worsening respiratory distress and shortness of breath. She had a previous coronavirus test as negative. Repeat test was done which was positive, though she was pretty much asymptomatic. Saturations are 97% on room air, temperature is 97. She did have a cough and x-ray shows cardiomegaly without any other infiltrates. PAST MEDICAL HISTORY: CHF, EF is 20%, renal failure, history of apparently lupus, former tobacco abuse. PREVIOUS SURGERIES: Hysterectomy, oophorectomy, cataract, cardiac cath, rotator cuff surgery, cholecystectomy. MEDICATIONS: Home medicines include 1. Aldactone 25. 2. Crestor 40. 3. Plaquenil 200. 4. Lasix 20. 5. Plavix 75. 6. Coreg 3.125. 7. Aspirin. She is now started on Levophed, Dobutrex and amiodarone. ALLERGIES: ANCEF. REVIEW OF SYSTEMS: Otherwise unremarkable. PHYSICAL EXAMINATION: VITAL SIGNS: Room air saturation 95%. Blood pressure is 104/81, respiratory rate 18. CHEST: No wheezing, no crackles. CARDIAC: Normal S1, S2. No gallops. ABDOMEN: Soft. EXTREMITIES: Trace edema. LABORATORY DATA: Creatinine is 1.51, glucose 181. IMPRESSION: Cardiomyopathy; 20% EF; renal failure; history of lupus, on Plaquenil; former smoker. Pulmonary/Critical Care has not much to offer at this stage. I am clearly surprised about her positive coronavirus status since she is asymptomatic with chest x-ray showing no infiltrates. I will avoid placing her on any medication at this stage. If she starts having an infiltrate, may consider at that time initiating antibiotics and maybe some convalescent plasma. At this stage, she is not a candidate for either remdesivir or IL6 antibody. Primary Care will follow while in the ICU. This is a consultation note, 70 minutes, 50% direct patient care. Job ID: [id number]
[2020-02-17] MEDS: Piperacillin/Tazobactam 2.25 GM in Sodium Chloride 0.9% 100 ML IVPB SCH ×2 (17:51→22:49)
[2020-02-17] MEDS: Ondansetron PF 4 MG/2 ML Vial IVP PRN (18:36)
[2020-02-17] MEDS: Rosuvastatin 10 MG TAB PO SCH (20:57)
[2020-02-17] MEDS ORDERED: Simethicone Chewable 80 MG TAB PO PRN (21:06)
[2020-02-17] MEDS: Mag-Al 1200 mg/1200 mg/30 ML UDCUP PO PRN (22:48)
--- NOTE | 2020-02-17 23:05 | PDOC.CNTRL ---
Central Line Procedure Note - Procedure Date: 02/17/20 Time: 22:00 - PreProcedure Diagnosis: Cardiogenic shock, need for levophed. - PostProcedure Diagnosis: cardiogenic shock, need for levophed, failed CVC placement. - Description Focused site: internal jugular: Right, subclavian vein: Right Ultrasound guidance: Yes Patient tolerated procedure: well Complications: local bleeding Procedure in Details: consent was obtained and timeout performed. Right neck prepped and draped. Lidocaine administered. US used to visualized cannulation of right IJ. However as guide wire was introduced, resistance was met at <10 cm. 2 more attempts were made and a small, nonexpanding hematoma was noted in right neck. This location was abandoned. I then attempted to placed the CVC in the right subclavian. I was able to achieve venous flash but was unable to place the guide wire. Procedure was abandoned. Post procedural CXR showed no pneumothorax. I evaluated the hematoma in the right neck with the bedside US one final time and noted it was no longer expanding. I have asked Dr. March from the ER to evaluate the patient and attempt placement at another site.
--- NOTE | 2020-02-17 23:05 | RAD ---
XR Chest 1 View Portable History: Central line placement Comparison: Radiograph 2 days prior Findings: Heart size mildly enlarged. Small effusions. Bibasilar airspace opacities. No central line is appreciated. No pneumothorax. Impression: 1. No central line is appreciated. 2. Small new pleural effusions. 3. New bibasilar airspace opacities may reflect compressive atelectasis.
[2020-02-18] MEDS: Mag-Al 1200 mg/1200 mg/30 ML UDCUP PO PRN (03:42)
[2020-02-18 04:57] LABS: Anion Gap 12 mmol/L (10-20); BUN (Urea Nitrogen) 12 mg/dL (9.8-20.1); Calc. Creatinine Clearance 33 mL/min (70-130); Calcium 8.8 mg/dL (7.8-10.44); Carbon Dioxide 22 mmol/L (23-31); Chloride 106 mmol/L (98-107); Estimated GFR-MDRD 42; Glucose 96 mg/dL (83-110); Potassium 3.7 mmol/L (3.5-5.1); Sodium 136 mmol/L (136-145)
[2020-02-18 05:15] LABS: Band 3 % (5-11); Hemoglobin 12.4 g/dL (12.0-16.0); Lymphocytes 19 % (21-51); MDiff Complete? YES; Mean Corpuscular HGB CONC 32.1 g/dL (32.0-36.0); Mean Corpuscular Hemoglobin 25.4 pg (27.0-31.0); Mean Corpuscular Volume 79.1 fL (78.0-98.0); Mean Platelet Volume 11.1 fL (7.4-10.4); Monocytes 4 % (0-10); Neutrophil 74 % (42-75); Platelet Count 163 thou/uL (130-400); Platelet Morphology Comment Appears Adequate; RBC Distribution Width 20.5 % (11.5-14.5); RBC Morphology Normal; Red Blood Cell (RBC) Count 4.88 mill/uL (4.20-5.40)
[2020-02-18] MEDS: Piperacillin/Tazobactam 2.25 GM in Sodium Chloride 0.9% 100 ML IVPB SCH ×4 (06:34→22:46)
--- NOTE | 2020-02-18 07:55 | RAD ---
EXAM: CHEST ONE VIEW HISTORY: Central line placement. COMPARISON: 02/17/2020 FINDINGS: There has been interval placement of a left-sided vascular catheter which overlies expected location of the left internal jugular vein with tip of the catheter overlying the expected location of the distal SVC. Cardiac silhouette is enlarged. The pulmonary vasculature is within normal limits. Mild l inear and patchy density is seen at the right lung base which may represent atelectasis. Lungs are otherwise clear. Bilateral glenohumeral osteoarthropathy is seen. Partial visualization of postsurgic al changes related to prior rotator cuff repair on the right are seen. No other interval change. IMPRESSION: 1. Interval placement of a left-sided vascular catheter without evidence of a pneumothorax. 2. Linear densities right lung base which may be attributable to atelectasis.
[2020-02-18] MEDS: Enoxaparin Sodium 30 MG/0.3 ML SYRINGE SC SCH (08:03)
[2020-02-18] MEDS: Aspirin 81 mg Enteric Coated Tablet PO SCH (08:03)
[2020-02-18] MEDS: Clopidogrel Bisulfate 75 MG TAB PO SCH (08:03)
[2020-02-18] MEDS: Spironolactone 25 MG TAB PO SCH ×2 (08:03→19:58)
[2020-02-18] MEDS ORDERED: Furosemide 40 MG/4 ML VIAL SLOW IVP SCH (09:45)
[2020-02-18] MEDS: Amiodarone 450 MG in Dextrose 5% in Water 250 ML IVPB SCH (10:31)
--- NOTE | 2020-02-18 10:59 | PDOC.CPN ---
- Subjective Date: 02/18/20 Time: 11:12 Interval history: The pt's chart was reviewed; Chart review only due to COVID 19 positive - Objective Allergies/Adverse Reactions: Allergies Allergy/AdvReac Type Severity Reaction Status Date / Time cefazolin [From [facility]] Allergy Unknown Rash Verified 02/15/20 23:52 Visit Medications: Current Medications Acetaminophen (Tylenol) 650 mg PO Q4H PRN PRN Reason: Headache/Fever/Mild Pain (1-3) Hydrocodone Bitart/Acetaminophen ([place] 5/325) 1 tab PO Q4H PRN PRN Reason: Moderate Pain (4-6) Al Hydroxide/Mg Hydroxide (Maalox) 30 ml PO Q4H PRN PRN Reason: Indigestion Last Admin: 02/18/20 03:42 Dose: 30 ml Albuterol Sulfate (Proventil Hfa) 2 puff INH Q2H PRN PRN Reason: SOB &/or Wheezing Aspirin (Ecotrin) 81 mg PO DAILY [facility] Last Admin: 02/18/20 08:03 Dose: 81 mg Bisacodyl (Dulcolax) 10 mg PO DAILYPRN PRN PRN Reason: Constipation Bisacodyl (Dulcolax) 10 mg [place] DAILYPRN PRN PRN Reason: Constipation Clopidogrel Bisulfate (Plavix) 75 mg PO DAILY [facility] Last Admin: 02/18/20 08:03 Dose: 75 mg Enoxaparin Sodium (Lovenox) 30 mg SC 0900 [facility] Last Admin: 02/18/20 08:03 Dose: 30 mg Furosemide (Lasix) 40 mg SLOW IVP NOW [facility] Stop: 02/18/20 12:00 Last Admin: 02/18/20 10:31 Dose: 40 mg Guaifenesin/Dextromethorphan (Robitussin Dm) 15 ml PO Q4H PRN PRN Reason: Cough Promethazine HCl 12.5 mg/ (Sodium Chloride) 50.5 mls @ 202 mls/hr IVPB Q6H PRN PRN Reason: Nausea/vomiting use second Dobutamine HCl/Dextrose (Dobutamine 500 Mg/250 Ml) 250 mls @ 8.586 mls/hr IVPB INF [facility]; Protocol Last Admin: 02/17/20 15:35 Dose: 250 mls Amiodarone HCl 450 mg/ (Dextrose/Water) 259 mls @ 0 mls/hr IVPB INF PADMAJA; Protocol Last Admin: 02/18/20 10:31 Dose: 259 mls Norepinephrine Bitartrate 16 (mg/ Dextrose/Water) 266 mls @ 0 mls/hr IVPB INF PADMAJA; Protocol Piperacillin Sod/Tazobactam (Sod 2.25 gm/ Sodium Chloride) 100 mls @ 200 mls/ hr IVPB Q6HR PADMAJA Last Admin: 02/18/20 06:34 Dose: 100 mls Ondansetron HCl (Zofran) 4 mg IVP Q6H PRN PRN Reason: Nausea/Vomiting use 1st Last Admin: 02/17/20 18:36 Dose: 4 mg Pantoprazole Sodium (Protonix) 40 mg PO DAILY [facility] Last Admin: 02/18/20 08:03 Dose: 40 mg Rosuvastatin Calcium (Crestor) 10 mg PO HS [facility] Last Admin: 02/17/20 20:57 Dose: 10 mg Senna/Docusate Sodium (Senokot S) 2 tab PO BID PRN PRN Reason: Constipation Simethicone (Mylicon Chewable) 80 mg PO PCHS PRN PRN Reason: Gas Pain Last Admin: 02/17/20 22:48 Dose: 80 mg Sodium Chloride (Flush - Normal Saline) 10 ml IVF Q12HR [facility] Last Admin: 02/18/20 08:03 Dose: 10 ml Sodium Chloride (Flush - Normal Saline) 10 ml IVF PRN PRN PRN Reason: Saline Flush Spironolactone (Aldactone) 25 mg PO QAM [facility] Last Admin: 02/18/20 08:03 Dose: 25 mg Spironolactone (Aldactone) 50 mg PO QPM [facility] Last Admin: 02/17/20 22:18 Dose: Not Given Vital Signs & Weight: Vital Signs Temp Pulse Ox 02/18/20 08:00 96.2 F L 93 L 02/18/20 04:00 96.6 F L Weight 126 lb 12.253 oz - Labs Result Diagrams: 02/18/20 04:10 02/18/20 04:10 Troponin/CKMB CK-MB (CK-2) 1.7 ng/mL (0-6.6) 02/15/20 20:04 Troponin I 0.229 ng/mL (< 0.028) H 02/16/20 13:26 - Assessment/Plan Assessment/Plan: 1. 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 Amyloidosis - Per Dr Moreno at [facility], the pt is not good candidate for medical tx; Plan to tx to [facility] for urgent heart transplant 3. Hypotension - stable with dobutamine and Levophed drip 4. Aflutter - HR has been 100-110s with Amiodarone drip; 5. CKD - unchanged 6. UTI - on ABX IV 7. Hx of CVA - on Plavix and ASA 8. mod MR 9. Lupus 10. COVID 19 positive MAR reviewed See my note in paper [email or web address]
[2020-02-18] MEDS ORDERED: Norepinephrine 16 MG in Dextrose 5% in Water 234 ML IVPB SCH (14:00)
[2020-02-18] MEDS: DOBUTamine 500 mg/250 ml 250 ML IVPB SCH (17:42)
--- NOTE | 2020-02-18 18:03 | PRG ---
DATE OF SERVICE: 02/18/2020 SUBJECTIVE: A 74-year-old female, remains in the ICU, on Levophed at 5 mcg and Dobutrex at 5 mcg. OBJECTIVE: VITAL SIGNS: Blood pressure 145/100, pulse 118, respiratory rate 24, saturations 100%. His I's and O's have been slightly negative. CHEST: No wheezing, crackles. CARDIAC: Normal S1, S2. ABDOMEN: No masses. LABORATORY DATA: Unremarkable. All cultures negative. ASSESSMENT: Cardiomyopathy. Vazquez positive pneumonia. I see no reason to keep on antibiotic. X-ray is clear. She can probably be transferred out of the ICU depending on primary care physician input. Job ID: [id number]
--- NOTE | 2020-02-18 18:17 | PDOC.HOSPP ---
- Subjective Encounter Date: 02/18/20 Encounter Time: 18:16 Subjective: pt was not seen today. Did review chart and spoke with nursing staff. pt was seen by cardiology - Objective Vital Signs & Weight: Vital Signs (12 hours) Temp Pulse Pulse BP BP Pulse Ox Pulse Ox 02/18/20 14:53 104 H 105 H 133/91 H 118/86 98 02/18/20 12:00 96.9 F L 02/18/20 08:00 96.2 F L 93 L Pulse Ox 02/18/20 14:53 100 02/18/20 12:00 02/18/20 08:00 Weight Weight 126 lb 12.253 oz Most Recent Monitor Data Heart Rate from ECG 103 NIBP 119/80 NIBP BP-Mean 93 Respiration from ECG 23 SpO2 98 I&O: 02/17/20 02/18/20 02/19/20 06:59 06:59 06:59 Intake Total 1147 1080 350 Output Total 600 0 Balance 547 1080 350 Result Diagrams: 02/18/20 04:10 02/18/20 04:10 Hospitalist ROS - Review of Systems Other: pt not seen - Medication Medications: Active Medications Generic Name Dose Route Start Last Admin Trade Name Freq PRN Reason Stop Dose Admin Al Hydroxide/Mg Hydroxide 30 ml 02/17/20 21:06 02/18/20 03:42 Maalox PO 30 ml Q4H PRN Administration Indigestion Aspirin 81 mg 02/16/20 09:00 02/18/20 08:03 Ecotrin PO 81 mg DAILY PADMAJA Administration Clopidogrel Bisulfate 75 mg 02/16/20 09:00 02/18/20 08:03 Plavix PO 75 mg DAILY PADMAJA Administration Enoxaparin Sodium 30 mg 02/16/20 09:00 02/18/20 08:03 Lovenox SC 30 mg 0900 PADMAJA Administration Dobutamine HCl/Dextrose 250 mls @ 8.586 mls/hr 02/16/20 13:00 02/18/20 17:42 Dobutamine 500 Mg/250 Ml IVPB 250 mls INF PADMAJA Administration Protocol 5 MCG/KG/MIN Amiodarone HCl 450 mg/ 259 mls @ 0 mls/hr 02/17/20 09:49 02/18/20 10:31 Dextrose/Water IVPB 259 mls INF PADMAJA Administration Protocol Per Protocol Piperacillin Sod/Tazobactam 100 mls @ 200 mls/hr 02/17/20 18:00 02/18/20 17: 41 Sod 2.25 gm/ Sodium Chloride IVPB 100 mls Q6HR PADMAJA Administration Norepinephrine Bitartrate 16 250 mls @ 0 mls/hr 02/18/20 14:00 02/18/20 14:33 mg/ Dextrose/Water IVPB 250 mls INF PADMAJA Administration Protocol As Directed Ondansetron HCl 4 mg 02/16/20 01:07 02/17/20 18:36 Zofran IVP 4 mg Q6H PRN Administration Nausea/Vomiting use 1st Pantoprazole Sodium 40 mg 02/16/20 09:00 02/18/20 08:03 Protonix PO 40 mg DAILY PADMAJA Administration Rosuvastatin Calcium 10 mg 02/17/20 21:00 02/17/20 20:57 Crestor PO 10 mg HS PADMAJA Administration Simethicone 80 mg 02/17/20 21:06 02/17/20 22:48 Mylicon Chewable PO 80 mg PCHS PRN Administration Gas Pain Sodium Chloride 10 ml 02/16/20 09:00 02/18/20 08:03 Flush - Normal Saline IVF 10 ml Q12HR PADMAJA Administration Spironolactone 25 mg 02/16/20 09:00 02/18/20 08:03 Aldactone PO 25 mg QAM PADMAJA Administration Spironolactone 50 mg 02/16/20 21:00 02/17/20 22:18 Aldactone PO Not Given QPM PADMA[facility] Hosp A/P (1) Acute on chronic combined 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 Code(s): I50.43 - ACUTE ON CHRONIC COMBINED SYSTOLIC AND DIASTOLIC HRT FAIL Status: Acute (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 she has had chronic diarrhea will give her cholerstamine to see if this helps. she is not eating much per nursing staff. per notes she will need to be transferred to [facility] for transplant. she is covid positive. She does not appear in any respiratory distress not sure if we should start her on steroids. she was provided some ensure today. Her diarrhea amounts per nursing staff are very small.
[2020-02-18] MEDS ORDERED: Cholestyramine/Aspartame 4 gm Packet PO SCH (18:30)
[2020-02-18] MEDS: Rosuvastatin 10 MG TAB PO SCH (19:57)
[2020-02-18] MEDS: Cholestyramine/Aspartame 4 gm Packet PO SCH (21:45)
[2020-02-18] MEDS ORDERED: diphenhydrAMINE 25 MG CAP PO SCH (22:45)
[2020-02-19] MEDS: Piperacillin/Tazobactam 2.25 GM in Sodium Chloride 0.9% 100 ML IVPB SCH (05:18)
[2020-02-19] MEDS: Enoxaparin Sodium 30 MG/0.3 ML SYRINGE SC SCH (09:36)
[2020-02-19] MEDS: Aspirin 81 mg Enteric Coated Tablet PO SCH (09:36)
[2020-02-19] MEDS: Spironolactone 25 MG TAB PO SCH (09:36)
[2020-02-19] MEDS: Clopidogrel Bisulfate 75 MG TAB PO SCH (09:36)
--- NOTE | 2020-02-19 09:38 | PDOC.HOSPP ---
- Subjective Encounter Date: 02/19/20 - Objective Vital Signs & Weight: Vital Signs (12 hours) Temp 02/19/20 04:00 97.5 F L Weight Weight 135 lb 2.294 oz Most Recent Monitor Data Heart Rate from ECG 103 NIBP 117/80 NIBP BP-Mean 92 Respiration from ECG 8 SpO2 94 I&O: 02/18/20 02/19/20 02/20/20 06:59 06:59 06:59 Intake Total 1080 1406.6 Output Total 0 Balance 1080 1406.6 Result Diagrams: 02/18/20 04:10 02/18/20 04:10 Hospitalist ROS - Medication Medications: Active Medications Generic Name Dose Route Start Last Admin Trade Name Freq PRN Reason Stop Dose Admin Al Hydroxide/Mg Hydroxide 30 ml 02/17/20 21:06 02/18/20 03:42 Maalox PO 30 ml Q4H PRN Administration Indigestion Aspirin 81 mg 02/16/20 09:00 02/19/20 09:36 Ecotrin PO 81 mg DAILY PADMAJA Administration Cholestyramine Resin 4 gm 02/18/20 22:00 02/18/20 21:45 Questran Light PO Not Given 1000,2200 PADMAJA Clopidogrel Bisulfate 75 mg 02/16/20 09:00 02/19/20 09:36 Plavix PO 75 mg DAILY PADMAJA Administration Enoxaparin Sodium 30 mg 02/16/20 09:00 02/18/20 08:03 Lovenox SC 30 mg 0900 PADMAJA Administration Dobutamine HCl/Dextrose 250 mls @ 8.586 mls/hr 02/16/20 13:00 02/18/20 17:42 Dobutamine 500 Mg/250 Ml IVPB 250 mls INF PADMAJA Administration Protocol 5 MCG/KG/MIN Amiodarone HCl 450 mg/ 259 mls @ 0 mls/hr 02/17/20 09:49 02/18/20 10:31 Dextrose/Water IVPB 259 mls INF PADMAJA Administration Protocol Per Protocol Piperacillin Sod/Tazobactam 100 mls @ 200 mls/hr 02/17/20 18:00 02/19/20 05: 18 Sod 2.25 gm/ Sodium Chloride IVPB 100 mls Q6HR PADMAJA Administration Norepinephrine Bitartrate 16 250 mls @ 0 mls/hr 02/18/20 14:00 02/18/20 14:33 mg/ Dextrose/Water IVPB 250 mls INF PADMAJA Administration Protocol As Directed Ondansetron HCl 4 mg 02/16/20 01:07 02/17/20 18:36 Zofran IVP 4 mg Q6H PRN Administration Nausea/Vomiting use 1st Pantoprazole Sodium 40 mg 02/16/20 09:00 02/19/20 09:35 Protonix PO 40 mg DAILY PADMAJA Administration Rosuvastatin Calcium 10 mg 02/17/20 21:00 02/18/20 19:57 Crestor PO 10 mg HS PADMAJA Administration Simethicone 80 mg 02/17/20 21:06 02/17/20 22:48 Mylicon Chewable PO 80 mg PCHS PRN Administration Gas Pain Sodium Chloride 10 ml 02/16/20 09:00 02/18/20 19:57 Flush - Normal Saline IVF 10 ml Q12HR PADMAJA Administration Spironolactone 25 mg 02/16/20 09:00 02/18/20 08:03 Aldactone PO 25 mg QAM PADMAJA Administration Spironolactone 50 mg 02/16/20 21:00 02/18/20 19:58 Aldactone PO 50 mg QPM PADMAJA Administration Hosp A/P (1) Acute on chronic combined 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 Code(s): I50.43 - ACUTE ON CHRONIC COMBINED SYSTOLIC AND DIASTOLIC HRT FAIL Status: Acute (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 - ORGAN-LIMITED AMYLOIDOSIS; I43 - CARDIOMYOPATHY IN DISEASES CLASSIFIED ELSEWHERE Status: Chronic (3) HTN (hypertension), benign Code(s): I10 - ESSENTIAL (PRIMARY) HYPERTENSION Status: Chronic (4) Lupus (systemic lupus erythematosus) Code(s): M32.9 - SYSTEMIC LUPUS ERYTHEMATOSUS, UNSPECIFIED Status: Chronic (5) Hyperlipidemia Code(s): E78.5 - HYPERLIPIDEMIA, UNSPECIFIED Status: Chronic (6) History of CVA (cerebrovascular accident) Code(s): Z86.73 - PRSNL HX OF TIA (TIA), AND CEREB INFRC W/O RESID DEFICITS Status: Chronic (7) Gout Code(s): M10.9 - GOUT, UNSPECIFIED Status: Chronic (8) UTI (urinary tract infection) Status: Ruled-out (9) COVID-19 Code(s): U07.1 - COVID-19 Status: Acute - Plan Patient on dobutamine and levophed per Dr. Vaughn Amiodarone if needed for tachyarrhythmias All cultures negative, can d/c abx Covid-19 test positive, on wait list for [facility] for heart transplant DVT proph: Lovenox and SCD GI proph: Protonix
--- NOTE | 2020-02-19 09:52 | PRG ---
DATE OF SERVICE: 02/19/2020 SUBJECTIVE: Es Magdaleno this morning remains in the ICU. OBJECTIVE: VITAL SIGNS: Pulse 103, blood pressure , saturations 95% on 2 L. I's and O's have been negative. CHEST: No wheezing, crackles. CARDIAC: Normal S1, S2. No gallops. ABDOMEN: Soft. ASSESSMENT: 1. Cardiomyopathy. 2. Positive pneumonia. 3. Cardiac arrhythmia, she is on Dobutrex. Diuretics, Levophed. All cultures are negative. PLAN: Consider discontinuing the Zosyn. I do not see evidence of any infection in any place. Supportive care. We will follow. Job ID: [id number]
[2020-02-19 10:29] LABS: Anion Gap 14 mmol/L (10-20); BUN (Urea Nitrogen) 11 mg/dL (9.8-20.1); Calc. Creatinine Clearance 36 mL/min (70-130); Calcium 8.4 mg/dL (7.8-10.44); Carbon Dioxide 22 mmol/L (23-31); Chloride 101 mmol/L (98-107); Estimated GFR-MDRD 46; Glucose 98 mg/dL (83-110); Potassium 3.3 mmol/L (3.5-5.1); Sodium 134 mmol/L (136-145)
--- NOTE | 2020-02-19 10:55 | RAD ---
Exam: Chest one view HISTORY:Increased dyspnea. Positive COVID patient. Comparison: 02/17/2020 FINDINGS: Lines and tubes: Left-sided internal jugular vascular catheter, unchanged. Cardiac silhouette:Cardiomegaly. Aorta: Atherosclerosis Pulmonary vessels: Normal Costophrenic angles: Clear LUNGS: Parenchymal changes in the right lower lobe which may representing atelectasis, pneumonia or i nfiltrate. Pneumothorax: None Osseous abnormalities: None IMPRESSION: Parenchymal changes in the right lung base as described above. COVID positive patient may have lung parenchymal changes compatible with atypical pneumonia. Continued surveillance to ensure resolution.
[2020-02-19] MEDS: Cholestyramine/Aspartame 4 gm Packet PO SCH ×2 (11:46→21:35)
--- NOTE | 2020-02-19 15:30 | PDOC.EVN ---
Event Note - Event Note Event Note: Patient chart reviewed and case discussed with the nurse. No acute changes. Patient remains on the Levophed, dobutamine, and amiodarone. Awaiting transfer to [facility] for heart transplant evaluation. Seen by pulmonology so did not enter room to conserve PPE.
[2020-02-19] MEDS: Amiodarone 450 MG in Dextrose 5% in Water 250 ML IVPB SCH (16:36)
--- NOTE | 2020-02-19 17:43 | PDOC.PALPN ---
Palliative Progress Note - Subjective Alert, short of breath with minimal exertion. - Objective Vital Signs: Vital Signs - Most Recent Temp Pulse Resp BP Pulse Ox 97.3 F L 102 H 19 128/94 H 94 L 02/19/20 17:00 02/19/20 09:37 02/17/20 08:00 02/19/20 09:37 02/19/20 09:37 - Physical Exam Constitutional: ill appearing HEENT: moist MMs, sclera anicteric Respiratory: clear to auscultation bilateral Deviation from normal: murmur Gastrointestinal: non-tender, positive bowel sounds Genitourinary: stress incontinence Musculoskeletal: pulses present, diffuse muscle atrophy Neurology: moves all 4 limbs, no focal deficits Skin: no lesions, no rash Psychiatric: A&O x 3, depressed - Assessment (1) Palliative care encounter Code(s): Z51.5 - ENCOUNTER FOR PALLIATIVE CARE Current Visit: Yes Status: Acute (2) Acute on chronic combined 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 Code(s): I50.43 - ACUTE ON CHRONIC COMBINED SYSTOLIC AND DIASTOLIC HRT FAIL Current Visit: Yes Status: Acute (3) COVID-19 Code(s): U07.1 - COVID-19 Current Visit: Yes Status: Acute (4) Diarrhea Code(s): R19.7 - DIARRHEA, UNSPECIFIED Current Visit: Yes Status: Acute (5) 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 Understanding of need for heart transplant. Life review. Most important to her is her family, , her daughter and one grandson. States her greatest carlo is her grandson who is 27 and lives in [facility]. Her goal is to get well enough to go see him. Hopeful for transfer to [facility] for evaluation of heart transplant. Emotional support therapeutic listening. [20] minutes spent on this encounter with >50% of the time in counseling and coordination of care. - ROS Constitutional: loss appetite, weakness ENT: other (denies throat irritatio) Respiratory: shortness of breath, shortness of breath with extertion Cardiology: other (negative for chest pain, intermittant palpitations) Gastrointestinal: diarrhea Genitourinary: stress incontinence Neurological: weakness Psychological: depression
--- NOTE | 2020-02-19 17:53 | PDOC.FMACP ---
Advance Care Planning - Problem (1) Palliative care encounter Status: Acute Code(s): Z51.5 - ENCOUNTER FOR PALLIATIVE CARE (2) Acute on chronic combined 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 Status: Acute Code(s): I50.43 - ACUTE ON CHRONIC COMBINED SYSTOLIC AND DIASTOLIC HRT FAIL (3) COVID-19 Status: Acute Code(s): U07.1 - COVID-19 (4) Diarrhea Status: Acute Code(s): R19.7 - DIARRHEA, UNSPECIFIED (5) Amyloid heart disease Status: Chronic Code(s): E85.4 - ORGAN-LIMITED AMYLOIDOSIS; I43 - CARDIOMYOPATHY IN DISEASES CLASSIFIED ELSEWHERE (6) CKD (chronic kidney disease) stage 3, GFR 30-59 ml/min Status: Acute Code(s): N18.3 - CHRONIC KIDNEY DISEASE, STAGE 3 (MODERATE) - Note Participants: patient, palliative care Summary: Palliative Care introduced Advanced Care Planning, allowed opportunity to decline. The diagnosis, prognosis and goals of care were discussed. Appropriate forms and documentation to accomplish the goals of care were discussed. All questions were answered. Mrs aMgdaleno states her is her primary decision maker. Information in relation to Directive to physician provided, not completed. States she wishes to have aggressive measures, however if she is at any time with mental/neurological condition that has poor meaningful recovery she would not wish to be kept alive. Continue with full resuscitation measures. Time Spent (mins): 15
[2020-02-19] MEDS: DOBUTamine 500 mg/250 ml 250 ML IVPB SCH (21:35)
[2020-02-19] MEDS: Rosuvastatin 10 MG TAB PO SCH (21:35)
[2020-02-19] MEDS ORDERED: Potassium Chloride 20 MEQ TAB PO SCH (22:15)
[2020-02-20 07:08] LABS: Anion Gap 12 mmol/L (10-20); BUN (Urea Nitrogen) 11 mg/dL (9.8-20.1); Calc. Creatinine Clearance 39 mL/min (70-130); Calcium 8.8 mg/dL (7.8-10.44); Carbon Dioxide 24 mmol/L (23-31); Chloride 101 mmol/L (98-107); Estimated GFR-MDRD 52; Glucose 88 mg/dL (83-110); Magnesium 1.8 mg/dL (1.6-2.6); Potassium 4.2 mmol/L (3.5-5.1); Sodium 133 mmol/L (136-145)
[2020-02-20 08:27] LABS: Anisocytosis SLIGHT = 6-15 cells (100X) (0-5/hpf); Band 16 % (5-11); Eosinophils 1 % (0-10); Hemoglobin 12.2 g/dL (12.0-16.0); Lymphocytes 23 % (21-51); MDiff Complete? YES; Mean Corpuscular Hemoglobin 25.7 pg (27.0-31.0); Mean Corpuscular Volume 77.8 fL (78.0-98.0); Mean Platelet Volume 6.2 fL (7.4-10.4); Monocytes 10 % (0-10); Neutrophil 50 % (42-75); Platelet Count 143 thou/uL (130-400); RBC Distribution Width 20.7 % (11.5-14.5); Red Blood Cell (RBC) Count 4.74 mill/uL (4.20-5.40); Target Cells MODERATE= 6-15 cells (100X) (0-1/hpf); White Blood Cell (WBC) Count 10.2 thou/uL (4.8-10.8)
[2020-02-20] MEDS: Amiodarone 450 MG in Dextrose 5% in Water 250 ML IVPB SCH ×2 (08:39→22:00)
--- NOTE | 2020-02-20 10:04 | PRG ---
DATE OF SERVICE: 02/20/2020 SUBJECTIVE: Es Magdaleno remains in the ICU. OBJECTIVE: VITAL SIGNS: Pulse 76, blood pressure 120/80, saturations . GENERAL: She is awake, alert, responsive, appears to be in no distress. CHEST: Reveals no wheezing, no crackles. CARDIAC: Normal S1, S2. No gallops. ABDOMEN: No masses. ASSESSMENT AND PLAN: Cardiomyopathy, respiratory failure, mild azotemia. Most of the cardiac in origin. She is still on amiodarone, Dobutrex, diuretics. Pulmonary follow while in the ICU. Job ID: [id number]
[2020-02-20] MEDS: Spironolactone 25 MG TAB PO SCH ×3 (10:26→21:58)
[2020-02-20] MEDS: Clopidogrel Bisulfate 75 MG TAB PO SCH (10:26)
[2020-02-20] MEDS: Enoxaparin Sodium 30 MG/0.3 ML SYRINGE SC SCH (10:26)
[2020-02-20] MEDS: Aspirin 81 mg Enteric Coated Tablet PO SCH (10:26)
[2020-02-20] MEDS: Cholestyramine/Aspartame 4 gm Packet PO SCH ×2 (10:30→21:56)
--- NOTE | 2020-02-20 11:36 | PDOC.HOSPP ---
- Subjective Subjective: Patient chart reviewed and case discussed with the nurse. No acute changes and no new complains . Patient remains on the Levophed, dobutamine, and amiodarone. Awaiting transfer to [facility] for heart transplant evaluation no fever over nigth . - Objective Vital Signs & Weight: Vital Signs (12 hours) Temp 02/20/20 04:00 96.6 F L 02/20/20 00:00 96.5 F L Weight Weight 129 lb 10.109 oz Most Recent Monitor Data Heart Rate from ECG 99 NIBP 98/63 NIBP BP-Mean 74 Respiration from ECG 22 SpO2 95 I&O: 02/19/20 02/20/20 02/21/20 06:59 06:59 06:59 Intake Total 1406.6 788.1 Output Total 820 Balance 1406.6 -31.9 Result Diagrams: 02/20/20 06:40 02/20/20 06:40 Additional Labs: Accuchecks 02/20/20 06:46 POC Glucose 92 Hospitalist ROS - Medication Medications: Active Medications Generic Name Dose Route Start Last Admin Trade Name Freq PRN Reason Stop Dose Admin Al Hydroxide/Mg Hydroxide 30 ml 02/17/20 21:06 02/18/20 03:42 Maalox PO 30 ml Q4H PRN Administration Indigestion Aspirin 81 mg 02/16/20 09:00 02/20/20 10:26 Ecotrin PO 81 mg DAILY PADMAJA Administration Cholestyramine Resin 4 gm 02/18/20 22:00 02/20/20 10:30 Questran Light PO 4 gm 1000,2200 PADMAJA Administration Clopidogrel Bisulfate 75 mg 02/16/20 09:00 02/20/20 10:26 Plavix PO 75 mg DAILY PADMAJA Administration Enoxaparin Sodium 30 mg 02/16/20 09:00 02/20/20 10:26 Lovenox SC 30 mg 0900 PADMAJA Administration Dobutamine HCl/Dextrose 250 mls @ 8.586 mls/hr 02/16/20 13:00 02/19/20 21:35 Dobutamine 500 Mg/250 Ml IVPB 250 mls INF PADMAJA Administration Protocol 5 MCG/KG/MIN Amiodarone HCl 450 mg/ 259 mls @ 0 mls/hr 02/17/20 09:49 02/20/20 08:39 Dextrose/Water IVPB 259 mls INF PADMAJA Administration Protocol Per Protocol Norepinephrine Bitartrate 16 250 mls @ 0 mls/hr 02/18/20 14:00 02/18/20 14:33 mg/ Dextrose/Water IVPB 250 mls INF PADMAJA Administration Protocol As Directed Ondansetron HCl 4 mg 02/16/20 01:07 02/17/20 18:36 Zofran IVP 4 mg Q6H PRN Administration Nausea/Vomiting use 1st Pantoprazole Sodium 40 mg 02/16/20 09:00 02/20/20 10:26 Protonix PO 40 mg DAILY PADMAJA Administration Rosuvastatin Calcium 10 mg 02/17/20 21:00 02/19/20 21:35 Crestor PO 10 mg HS PADMAJA Administration Simethicone 80 mg 02/17/20 21:06 02/17/20 22:48 Mylicon Chewable PO 80 mg PCHS PRN Administration Gas Pain Sodium Chloride 10 ml 02/16/20 09:00 02/20/20 10:27 Flush - Normal Saline IVF 10 ml Q12HR PADMAJA Administration Spironolactone 25 mg 02/16/20 09:00 02/20/20 10:26 Aldactone PO 25 mg QAM PADMAJA Administration Spironolactone 50 mg 02/16/20 21:00 02/18/20 19:58 Aldactone PO 50 mg QPM PADMAJA Administration Hosp A/P (1) Acute on chronic combined 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 Code(s): I50.43 - ACUTE ON CHRONIC COMBINED SYSTOLIC AND DIASTOLIC HRT FAIL Status: Acute (2) COVID-19 Code(s): U07.1 - COVID-19 Status: Acute (3) Diarrhea Code(s): R19.7 - DIARRHEA, UNSPECIFIED Status: Acute (4) Palliative care encounter Code(s): Z51.5 - ENCOUNTER FOR PALLIATIVE CARE Status: Acute (5) 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 per notes she will need to be transferred to [facility] for transplant. she is covid positive. She does not appear in any respiratory distress moniotr off steroids. she was provided some ensure today. Pulmonology following and cardiology following will follow further recommendations
--- NOTE | 2020-02-20 13:25 | PDOC.CPN ---
- Subjective Date: 02/20/20 Time: 13:30 Interval history: The pt's chart was reviewed. No overnight events. - Objective Allergies/Adverse Reactions: Allergies Allergy/AdvReac Type Severity Reaction Status Date / Time cefazolin [From [facility]] Allergy Unknown Rash Verified 02/15/20 23:52 Visit Medications: Current Medications Acetaminophen (Tylenol) 650 mg PO Q4H PRN PRN Reason: Headache/Fever/Mild Pain (1-3) Hydrocodone Bitart/Acetaminophen (Gilead 5/325) 1 tab PO Q4H PRN PRN Reason: Moderate Pain (4-6) Al Hydroxide/Mg Hydroxide (Maalox) 30 ml PO Q4H PRN PRN Reason: Indigestion Last Admin: 02/18/20 03:42 Dose: 30 ml Albuterol Sulfate (Proventil Hfa) 2 puff INH Q2H PRN PRN Reason: SOB &/or Wheezing Aspirin (Ecotrin) [address] [facility] Last Admin: 02/20/20 10:26 Dose: 81 mg Bisacodyl (Dulcolax) 10 mg PO DAILYPRN PRN PRN Reason: Constipation Bisacodyl (Dulcolax) 10 mg [place] DAILYPRN PRN PRN Reason: Constipation Cholestyramine Resin (Questran Light) 4 gm PO 1000,2200 [facility] Last Admin: 02/20/20 10:30 Dose: 4 gm Clopidogrel Bisulfate (Plavix) [address] [facility] Last Admin: 02/20/20 10:26 Dose: 75 mg Enoxaparin Sodium (Lovenox) [address] [facility] Last Admin: 02/20/20 10:26 Dose: 30 mg Guaifenesin/Dextromethorphan (Robitussin Dm) 15 ml PO Q4H PRN PRN Reason: Cough Promethazine HCl 12.5 mg/ (Sodium Chloride) 50.5 mls @ 202 mls/hr IVPB Q6H PRN PRN Reason: Nausea/vomiting use second Dobutamine HCl/Dextrose (Dobutamine 500 Mg/250 Ml) 250 mls @ 8.586 mls/hr IVPB INF [facility]; Protocol Last Admin: 02/19/20 21:35 Dose: 250 mls Amiodarone HCl 450 mg/ (Dextrose/Water) 259 mls @ 0 mls/hr IVPB INF [facility]; Protocol Last Admin: 02/20/20 08:39 Dose: 259 mls Norepinephrine Bitartrate 16 (mg/ Dextrose/Water) 250 mls @ 0 mls/hr IVPB INF [facility]; Protocol Last Admin: 02/18/20 14:33 Dose: 250 mls Ondansetron HCl (Zofran) 4 mg IVP Q6H PRN PRN Reason: Nausea/Vomiting use 1st Last Admin: 02/17/20 18:36 Dose: 4 mg Pantoprazole Sodium (Protonix) [address] [facility] Last Admin: 02/20/20 10:26 Dose: 40 mg Rosuvastatin Calcium (Crestor) [address] [facility] Last Admin: 02/19/20 21:35 Dose: 10 mg Senna/Docusate Sodium (Senokot S) 2 tab PO BID PRN PRN Reason: Constipation Simethicone (Mylicon Chewable) 80 mg PO [facility]S PRN PRN Reason: Gas Pain Last Admin: 02/17/20 22:48 Dose: 80 mg Sodium Chloride (Flush - Normal Saline) [address] [facility] Last Admin: 02/20/20 10:27 Dose: 10 ml Sodium Chloride (Flush - Normal Saline) 10 ml IVF PRN PRN PRN Reason: Saline Flush Spironolactone (Aldactone) [address] [facility] Last Admin: 02/20/20 10:26 Dose: 25 mg Spironolactone (Aldactone) [address] [facility] Last Admin: 02/18/20 19:58 Dose: 50 mg Vital Signs & Weight: Vital Signs Temp Pulse BP Pulse Ox 02/20/20 10:35 64 127/83 97 02/20/20 04:00 96.6 F L Weight 129 lb 10.109 oz - Labs Result Diagrams: 02/20/20 06:40 02/20/20 06:40 Troponin/CKMB CK-MB (CK-2) 1.7 ng/mL (0-6.6) 02/15/20 20:04 Troponin I 0.229 ng/mL (< 0.028) H 02/16/20 13:26 - Telemetry Supraventricular conduction: atrial flutter - Assessment/Plan Assessment/Plan: 1. 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 Amyloidosis - Per Dr Moreno at [facility], the pt is not good candidate for medical tx; Plan to tx to [facility] for urgent heart transplant 3. Hypotension - stable with dobutamine and off Levophed drip 4. Aflutter - HR has been 100-110s with Amiodarone drip; 5. CKD - improved renal function. 6. UTI - on ABX IV 7. Hx of CVA - on Plavix and ASA 8. mod MR 9. Lupus 10. COVID 19 positive MAR reviewed Pt. seen and eval. by me. She is feeling better. No SOB, able to lie flat without dyspnea. Chest clear. RRR. Monitor: atypical atrial flutter or atach. V-rate stable.. She has been off levophed since after midnight and BP stable. The renal function is doing well with the increased perfusion. Still waiting on a bed for transfer. Change IV to po amiodarone. hopefully taper dobutamine off over next couple days. She may not be able to tolerate being off this medication.cristal
[2020-02-20] MEDS: Amiodarone 200 MG TAB PO SCH ×2 (17:47→20:25)
[2020-02-20] MEDS: Rosuvastatin 10 MG TAB PO SCH (20:24)
[2020-02-20] MEDS: DOBUTamine 500 mg/250 ml 250 ML IVPB SCH (22:26)
[2020-02-21] MEDS: Aspirin 81 mg Enteric Coated Tablet PO SCH (09:12)
[2020-02-21] MEDS: Clopidogrel Bisulfate 75 MG TAB PO SCH (09:12)
[2020-02-21] MEDS: Cholestyramine/Aspartame 4 gm Packet PO SCH ×2 (09:12→21:52)
[2020-02-21] MEDS: Spironolactone 25 MG TAB PO SCH ×2 (09:12→20:15)
[2020-02-21] MEDS: Amiodarone 200 MG TAB PO SCH ×3 (09:13→20:15)
[2020-02-21] MEDS: Enoxaparin Sodium 30 MG/0.3 ML SYRINGE SC SCH (09:13)
[2020-02-21] MEDS: Amiodarone 450 MG in Dextrose 5% in Water 250 ML IVPB SCH (13:32)
--- NOTE | 2020-02-21 17:15 | PDOC.EVN ---
Event Note - Event Note Event Note: The patient complaind of SOB this afternoon per nursing staff. Patient is still on dobutamin drip for atrial flutter. SHe has no significant cough,. 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 Will repeat X ray today - will start dexamethasone since COVID + - blood culture, urine culture unremarkable Lupus - stable
[2020-02-21] MEDS ORDERED: Dexamethasone 4 MG TAB PO SCH (17:30)
--- NOTE | 2020-02-21 18:11 | RAD ---
EXAM: CHEST ONE VIEW HISTORY: Shortness of breath. Covid positive. COMPARISON: 02/19/2020 FINDINGS: Left-sided vascular catheter remains unchanged in position. Cardiac silhouette is mildly enlarged. Pu lmonary vasculature is at the upper limits of normal. Parenchymal opacity at the right lung base is mildly improved with linear densities present at the right lung base. No new areas of consolidation o r pleural fluid are appreciated. Vascular calcifications are seen in the thoracic aorta. Bilateral glenohumeral osteoarthropathy is present with postoperative changes partially imaged involving the le ft shoulder. IMPRESSION: Mild improvement in aeration at the right lung base, but linear and slight hazy densities do persist. Findings could be related to improving pneumonitis/viral pneumonitis at the right lung base.
[2020-02-21] MEDS: Rosuvastatin 10 MG TAB PO SCH (20:15)
--- NOTE | 2020-02-21 20:40 | PRG ---
DATE OF SERVICE: 02/21/2020 SUBJECTIVE: Es Magdaleno is clinically unchanged. She states she is stable. She had taken her oxygen off. When I saw her in her room air, sat was 95%. She is not tachypneic. OBJECTIVE: Remainder of her exam is unchanged. IMAGING DATA: Chest x-ray today is improved. This would argue that some of her infiltrates are cardiogenic pulmonary edema. IMPRESSION: 1. Atrial flutter. 2. Congestive heart failure. 3. History of amyloidosis. 4. Acute on chronic kidney disease. 5. COVID positive. 6. Mitral regurgitation. 7. History of lupus. Overall, she appears to be stable. Job ID: [id number]
[2020-02-22] MEDS: Amiodarone 450 MG in Dextrose 5% in Water 250 ML IVPB SCH (03:54)
[2020-02-22] MEDS: Spironolactone 25 MG TAB PO SCH ×2 (09:04→22:08)
[2020-02-22] MEDS: Dexamethasone 4 MG TAB PO SCH (09:04)
[2020-02-22] MEDS: Amiodarone 200 MG TAB PO SCH ×3 (09:04→22:08)
[2020-02-22] MEDS: Clopidogrel Bisulfate 75 MG TAB PO SCH (09:04)
[2020-02-22] MEDS: DOBUTamine 500 mg/250 ml 250 ML IVPB SCH (09:04)
[2020-02-22] MEDS: Enoxaparin Sodium 30 MG/0.3 ML SYRINGE SC SCH (09:05)
[2020-02-22] MEDS: Aspirin 81 mg Enteric Coated Tablet PO SCH (09:05)
[2020-02-22] MEDS: Cholestyramine/Aspartame 4 gm Packet PO SCH ×2 (09:58→22:08)
[2020-02-22 12:26] LABS: Anion Gap 16 mmol/L (10-20); BUN (Urea Nitrogen) 17 mg/dL (9.8-20.1); Calc. Creatinine Clearance 33 mL/min (70-130); Calcium 9.3 mg/dL (7.8-10.44); Carbon Dioxide 19 mmol/L (23-31); Chloride 99 mmol/L (98-107); Estimated GFR-MDRD 43; Glucose 124 mg/dL (83-110); Potassium 4.4 mmol/L (3.5-5.1); Sodium 130 mmol/L (136-145)
--- NOTE | 2020-02-22 18:26 | PDOC.HOSPP ---
- Subjective Encounter Date: 02/22/20 Encounter Time: 18:25 Subjective: The patient states she feels okay. She feels her neck is congested with fluid. She has minimal dry cough. She is eating well She says her right side of her back hurts when taking a deep breath She also reports seeing a rodent running around near the door Heart rate has been controlled in the 70's - Objective Vital Signs & Weight: Vital Signs (12 hours) Temp Pulse Resp BP BP Pulse Ox 02/22/20 15:23 96.5 F L 70 20 153/105 H 98 02/22/20 11:40 97.7 F 74 15 155/102 H 95 02/22/20 07:29 97.6 F 74 18 122/83 94 L Weight Weight 130 lb 9.6 oz Most Recent Monitor Data Heart Rate from ECG 90 NIBP 127/95 NIBP BP-Mean 105 Respiration from ECG 16 SpO2 73 I&O: 02/21/20 02/22/20 02/23/20 06:59 06:59 06:59 Intake Total 562.1 188.9 Output Total 316 24 Balance 246.1 164.9 Result Diagrams: 02/20/20 06:40 02/22/20 11:40 Hospitalist ROS - Medication Medications: Active Medications Generic Name Dose Route Start Last Admin Trade Name Freq PRN Reason Stop Dose Admin Al Hydroxide/Mg Hydroxide 30 ml 02/17/20 21:06 02/18/20 03:42 Maalox PO 30 ml Q4H PRN Administration Indigestion Amiodarone HCl 400 mg 02/22/20 15:00 02/22/20 15:23 Cordarone PO 400 mg TID PADMAJA Administration Aspirin 81 mg 02/16/20 09:00 02/22/20 09:05 Ecotrin PO 81 mg DAILY PADMAJA Administration Cholestyramine Resin 4 gm 02/18/20 22:00 02/22/20 09:58 Questran Light PO 4 gm 1000,2200 PADMAJA Administration Clopidogrel Bisulfate 75 mg 02/16/20 09:00 02/22/20 09:04 Plavix PO 75 mg DAILY PADMAJA Administration Dexamethasone 6 mg 02/22/20 09:00 02/22/20 09:04 Decadron PO 6 mg DAILY PADMAJA Administration Enoxaparin Sodium 30 mg 02/16/20 09:00 02/22/20 09:05 Lovenox SC 30 mg 0900 PADMAJA Administration Dobutamine HCl/Dextrose 250 mls @ 8.586 mls/hr 02/16/20 13:00 02/22/20 09:04 Dobutamine 500 Mg/250 Ml IVPB 250 mls INF PADMAJA Administration Protocol 5 MCG/KG/MIN Norepinephrine Bitartrate 16 250 mls @ 0 mls/hr 02/18/20 14:00 02/18/20 14:33 mg/ Dextrose/Water IVPB 250 mls INF PADMAJA Administration Protocol As Directed Ondansetron HCl 4 mg 02/16/20 01:07 02/17/20 18:36 Zofran IVP 4 mg Q6H PRN Administration Nausea/Vomiting use 1st Pantoprazole Sodium 40 mg 02/16/20 09:00 02/22/20 09:04 Protonix PO 40 mg DAILY PADMAJA Administration Rosuvastatin Calcium 10 mg 02/17/20 21:00 02/21/20 20:15 Crestor PO 10 mg HS PADMAJA Administration Simethicone 80 mg 02/17/20 21:06 02/17/20 22:48 Mylicon Chewable PO 80 mg PCHS PRN Administration Gas Pain Sodium Chloride 10 ml 02/16/20 09:00 02/22/20 09:05 Flush - Normal Saline IVF 10 ml Q12HR PADMAJA Administration Spironolactone 25 mg 02/16/20 09:00 02/22/20 09:04 Aldactone PO 25 mg QAM PADMAJA Administration Spironolactone 50 mg 02/16/20 21:00 02/21/20 20:15 Aldactone PO 50 mg QPM PADMAJA Administration - Exam General Appearance: NAD, awake alert Eye: PERRL, anicteric sclera ENT: normocephalic atraumatic Neck: supple, symmetric, no JVD, no thyromegaly Heart: RRR, no murmur, no gallops, no rubs Respiratory: CTAB, no wheezes, no ronchi Respiratory - other findings: mildly diminished Gastrointestinal: soft, non-tender, non-distended, normal bowel sounds Extremities: no cyanosis, no clubbing, no edema Skin: normal turgor, no lesions, no rashes Neurological: cranial nerve grossly intact, normal sensation to touch, no focal deficits, no new deficit Hosp A/P - Plan This is 74 year old female with acute heart failure, also COVID + , 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 Repeat X ray 02/20 shows improvement in right lung base - continue dexamethasone - blood culture, urine culture unremarkable Hallucinations - possibly from amiodarone? - continue to monitor conservatively - consider seroquel if patient danger to herself Lupus - stable
[2020-02-22] MEDS ORDERED: DOBUTamine 500 mg/250 ml 500 MG in Premix Bag 1 BAG IVPB SCH (19:00)
[2020-02-22] MEDS: Rosuvastatin 10 MG TAB PO SCH (22:08)
[2020-02-23 04:50] LABS: Anion Gap 16 mmol/L (10-20); BUN (Urea Nitrogen) 22 mg/dL (9.8-20.1); Calc. Creatinine Clearance 32 mL/min (70-130); Calcium 9.2 mg/dL (7.8-10.44); Carbon Dioxide 19 mmol/L (23-31); Chloride 98 mmol/L (98-107); Estimated GFR-MDRD 42; Glucose 86 mg/dL (83-110); Potassium 4.9 mmol/L (3.5-5.1); Sodium 128 mmol/L (136-145)
[2020-02-23 05:16] LABS: Mean Corpuscular HGB CONC 32.2 g/dL (32.0-36.0); Mean Corpuscular Hemoglobin 25.3 pg (27.0-31.0); Mean Corpuscular Volume 78.5 fL (78.0-98.0); Mean Platelet Volume 6.4 fL (7.4-10.4); Platelet Count 149 thou/uL (130-400); RBC Distribution Width 21.1 % (11.5-14.5); Red Blood Cell (RBC) Count 4.74 mill/uL (4.20-5.40); White Blood Cell (WBC) Count 6.6 thou/uL (4.8-10.8)
[2020-02-23] MEDS: Dexamethasone 4 MG TAB PO SCH (08:27)
[2020-02-23] MEDS: Clopidogrel Bisulfate 75 MG TAB PO SCH (08:27)
[2020-02-23] MEDS: Aspirin 81 mg Enteric Coated Tablet PO SCH (08:28)
[2020-02-23] MEDS: Amiodarone 200 MG TAB PO SCH ×3 (08:28→20:26)
[2020-02-23] MEDS: Enoxaparin Sodium 30 MG/0.3 ML SYRINGE SC SCH (08:28)
[2020-02-23] MEDS: Spironolactone 25 MG TAB PO SCH ×2 (08:28→20:27)
--- NOTE | 2020-02-23 08:53 | PDOC.CPN ---
- Subjective Date: 02/23/20 Time: 08:57 Interval history: The pt's chart was reviewed. No overnight events. This is Chart review due to COVID 19 positive - Objective Allergies/Adverse Reactions: Allergies Allergy/AdvReac Type Severity Reaction Status Date / Time cefazolin [From [facility]] Allergy Unknown Rash Verified 02/15/20 23:52 Visit Medications: Current Medications Acetaminophen (Tylenol) 650 mg PO Q4H PRN PRN Reason: Headache/Fever/Mild Pain (1-3) Hydrocodone Bitart/Acetaminophen (Dale 5/325) 1 tab PO Q4H PRN PRN Reason: Moderate Pain (4-6) Al Hydroxide/Mg Hydroxide (Maalox) 30 ml PO Q4H PRN PRN Reason: Indigestion Last Admin: 02/18/20 03:42 Dose: 30 ml Albuterol Sulfate (Proventil Hfa) 2 puff INH Q2H PRN PRN Reason: SOB &/or Wheezing Amiodarone HCl (Cordarone) 400 mg PO TID [facility] Last Admin: 02/23/20 08:28 Dose: 400 mg Aspirin (Ecotrin) 81 mg PO DAILY [facility] Last Admin: 02/23/20 08:28 Dose: 81 mg Bisacodyl (Dulcolax) 10 mg PO DAILYPRN PRN PRN Reason: Constipation Bisacodyl (Dulcolax) 10 mg [place] DAILYPRN PRN PRN Reason: Constipation Cholestyramine Resin (Questran Light) 4 gm PO 1000,2200 [facility] Last Admin: 02/22/20 22:08 Dose: 4 gm Clopidogrel Bisulfate (Plavix) 75 mg PO DAILY [facility] Last Admin: 02/23/20 08:27 Dose: 75 mg Dexamethasone (Decadron) 6 mg PO DAILY [facility] Last Admin: 02/23/20 08:27 Dose: 6 mg Enoxaparin Sodium (Lovenox) 30 mg SC 0900 [facility] Last Admin: 02/23/20 08:28 Dose: 30 mg Guaifenesin/Dextromethorphan (Robitussin Dm) 15 ml PO Q4H PRN PRN Reason: Cough Promethazine HCl 12.5 mg/ (Sodium Chloride) 50.5 mls @ 202 mls/hr IVPB Q6H PRN PRN Reason: Nausea/vomiting use second Norepinephrine Bitartrate 16 (mg/ Dextrose/Water) 250 mls @ 0 mls/hr IVPB INF [facility]; Protocol Last Admin: 02/18/20 14:33 Dose: 250 mls Dobutamine HCl/Dextrose 500 mg (/ Device) 250 mls @ 8.88 mls/hr IVPB INF [facility]; Protocol Ondansetron HCl (Zofran) 4 mg IVP Q6H PRN PRN Reason: Nausea/Vomiting use 1st Last Admin: 02/17/20 18:36 Dose: 4 mg Pantoprazole Sodium (Protonix) 40 mg PO DAILY [facility] Last Admin: 02/23/20 08:27 Dose: 40 mg Rosuvastatin Calcium (Crestor) 10 mg PO HS [facility] Last Admin: 02/22/20 22:08 Dose: 10 mg Senna/Docusate Sodium (Senokot S) 2 tab PO BID PRN PRN Reason: Constipation Simethicone (Mylicon Chewable) 80 mg PO PCHS PRN PRN Reason: Gas Pain Last Admin: 02/17/20 22:48 Dose: 80 mg Sodium Chloride (Flush - Normal Saline) 10 ml IVF Q12HR [facility] Last Admin: 02/23/20 08:28 Dose: 10 ml Sodium Chloride (Flush - Normal Saline) 10 ml IVF PRN PRN PRN Reason: Saline Flush Spironolactone (Aldactone) 25 mg PO QAM [facility] Last Admin: 02/23/20 08:28 Dose: 25 mg Spironolactone (Aldactone) 50 mg PO QPM [facility] Last Admin: 02/22/20 22:08 Dose: 50 mg Vital Signs & Weight: Vital Signs Temp Pulse Resp BP BP Pulse Ox 02/23/20 07:35 97.9 F 74 16 110/66 100 02/23/20 03:58 98 F 73 26 H 119/69 97 02/22/20 21:58 97.8 F 70 19 124/73 97 Weight 131 lb 3.2 oz - Labs Result Diagrams: 02/23/20 03:35 02/23/20 03:35 Troponin/CKMB CK-MB (CK-2) 1.7 ng/mL (0-6.6) 02/15/20 20:04 Troponin I 0.229 ng/mL (< 0.028) H 02/16/20 13:26 - Telemetry Supraventricular conduction: atrial fibrillation - Assessment/Plan Assessment/Plan: 1. 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 Amyloidosis - Per Dr Moreno at [facility], the pt is not good candidate for medical tx; Plan to tx to [facility] for urgent heart transplant 3. Hypotension - stable without dobutamine and Levophed drip 4. Aflutter - well controlled HR with Amiodarone taper 5. CKD - improved renal function. 6. UTI 7. Hx of CVA - on Plavix and ASA 8. mod MR 9. Lupus 10. COVID 19 positive MAR reviewed * Still waiting on a bed for transfer. Pt. seen and eval. by me. 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 Fluid restrict. She feels better than she has in a long time. She remains on dobutamine. Off levophed. the Na is low and the creat. is slightly increased. Continue to taper dobutamine. cristal
[2020-02-23] MEDS: Cholestyramine/Aspartame 4 gm Packet PO SCH ×2 (11:38→21:26)
[2020-02-23] MEDS ORDERED: DOBUTamine 500 mg/250 ml 500 MG in Premix Bag 1 BAG IVPB SCH (13:44)
--- NOTE | 2020-02-23 13:57 | RAD ---
Chest one view HISTORY: Dyspnea. COVID positive. COMPARISON: 02/21/2020. FINDINGS: Cardiac silhouette is magnified and enlarged. Pulmonary vasculature upper limits of normal. Mediastinum is midline with aortic calcification and a left internal jugular central venous catheter. Bilateral pleural fluid and patchy bibasilar infiltrates have increased slightly. No evidence of pneumothorax. Postoperative changes of the right shoulder apparent. ekg monitor leads overlie the chest. IMPRESSION : Interval progression of bibasilar infiltrates. Small amount of bilateral pleural fluid.
--- NOTE | 2020-02-23 15:42 | PDOC.HOSPP ---
- Subjective Encounter Date: 02/23/20 Encounter Time: 10:00 Subjective: The patient denies SOB, dyspnea on exertion or chest pain. She is still awaiting a bed at [facility] She still states that she can see a mouse which other people can't see - Objective Vital Signs & Weight: Vital Signs (12 hours) Temp Pulse Resp BP BP Pulse Ox 02/23/20 11:35 97.7 F 77 14 131/75 100 02/23/20 07:35 97.9 F 74 16 110/66 100 02/23/20 03:58 98 F 73 26 H 119/69 97 Weight Weight 131 lb 3.2 oz Most Recent Monitor Data Heart Rate from ECG 90 NIBP 127/95 NIBP BP-Mean 105 Respiration from ECG 16 SpO2 73 I&O: 02/22/20 02/23/20 02/24/20 06:59 06:59 06:59 Intake Total 188.9 920 360 Output Total 24 2 Balance 164.9 918 360 Result Diagrams: 02/23/20 03:35 02/23/20 03:35 Hospitalist ROS - Review of Systems Constitutional: denies: fever, chills - Medication Medications: Active Medications Generic Name Dose Route Start Last Admin Trade Name Freq PRN Reason Stop Dose Admin Al Hydroxide/Mg Hydroxide 30 ml 02/17/20 21:06 02/18/20 03:42 Maalox PO 30 ml Q4H PRN Administration Indigestion Amiodarone HCl 400 mg 02/22/20 15:00 02/23/20 08:28 Cordarone PO 400 mg TID PADMAJA Administration Aspirin 81 mg 02/16/20 09:00 02/23/20 08:28 Ecotrin PO 81 mg DAILY PADMAJA Administration Cholestyramine Resin 4 gm 02/18/20 22:00 02/23/20 11:38 Questran Light PO 4 gm 1000,2200 PADMAJA Administration Clopidogrel Bisulfate 75 mg 02/16/20 09:00 02/23/20 08:27 Plavix PO 75 mg DAILY PADMAJA Administration Dexamethasone 6 mg 02/22/20 09:00 02/23/20 08:27 Decadron PO 6 mg DAILY PADMAJA Administration Enoxaparin Sodium 30 mg 02/16/20 09:00 02/23/20 08:28 Lovenox SC 30 mg 0900 PADMAJA Administration Norepinephrine Bitartrate 16 250 mls @ 0 mls/hr 02/18/20 14:00 02/18/20 14:33 mg/ Dextrose/Water IVPB 250 mls INF PADMAJA Administration Protocol As Directed Ondansetron HCl 4 mg 02/16/20 01:07 02/17/20 18:36 Zofran IVP 4 mg Q6H PRN Administration Nausea/Vomiting use 1st Pantoprazole Sodium 40 mg 02/16/20 09:00 02/23/20 08:27 Protonix PO 40 mg DAILY PADMAJA Administration Rosuvastatin Calcium 10 mg 02/17/20 21:00 02/22/20 22:08 Crestor PO 10 mg HS PADMAJA Administration Simethicone 80 mg 02/17/20 21:06 02/17/20 22:48 Mylicon Chewable PO 80 mg PCHS PRN Administration Gas Pain Sodium Chloride 10 ml 02/16/20 09:00 02/23/20 08:28 Flush - Normal Saline IVF 10 ml Q12HR PADMAJA Administration Spironolactone 25 mg 02/16/20 09:00 02/23/20 08:28 Aldactone PO 25 mg QAM PADMAJA Administration Spironolactone 50 mg 02/16/20 21:00 02/22/20 22:08 Aldactone PO 50 mg QPM PADMAJA Administration - Exam General Appearance: NAD, awake alert Eye: PERRL, anicteric sclera ENT: normocephalic atraumatic, no oropharyngeal lesions Neck: no JVD Heart: RRR, no murmur, no gallops, no rubs Respiratory: CTAB, no wheezes, no rales, no ronchi Gastrointestinal: soft, non-tender, non-distended, normal bowel sounds Extremities: no cyanosis, no clubbing, no edema Skin: normal turgor, no lesions, no rashes Neurological: cranial nerve grossly intact, normal sensation to touch, no focal deficits, no new deficit Musculoskeletal: normal tone, normal strength, no muscle wasting Psychiatric: normal affect, normal behavior, A&O x 3, oriented to person Hosp A/P - Plan This is 74 year old female with acute heart failure, also COVID + , 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 for heart transplant, currently awaiting a bed Right lung pneumonia - possibly from COVID vs bacterial - received zosyn 02/15 - 02/18. Repeat X ray 02/20 shows improvement in right lung base - continue dexamethasone - blood culture, urine culture unremarkable Hallucinations - check CT brain - monitor conservatively Lupus - stable
--- NOTE | 2020-02-23 17:28 | CT ---
CT BRAIN NONCONTRAST: DATE: 02/23/2020 HISTORY: 74-year-old female with altered mental status: Hallucinations. FINDINGS: There is no evidence of acute intra-axial or extra-axial hemorrhage. There is no midline shift or any other mass effect. There is no extra-axial fluid collection. There is no evidence of obstructive hydrocephalus. Calvarium is intact. The infarction in the right basal ganglia, portion of right cauda te head, and probably portion of right external capsule, that was acute or subacute on the prior CT, is now a region of encephalomalacia and gliosis IMPRESSION: 1. No acute intracranial findings. 2. 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
[2020-02-23] MEDS: Rosuvastatin 10 MG TAB PO SCH (20:26)
[2020-02-24 05:19] LABS: ALT (SGPT) 64 U/L (8-55); AST (SGOT) 116 U/L (5-34); Albumin 3.7 g/dL (3.4-4.8); Alkaline Phosphatase 27 U/L (40-110); Anion Gap 14 mmol/L (10-20); BUN (Urea Nitrogen) 25 mg/dL (9.8-20.1); Bilirubin, Total 3.2 mg/dL (0.2-1.2); Calc. Creatinine Clearance 32 mL/min (70-130); Calcium 9.5 mg/dL (7.8-10.44); Carbon Dioxide 22 mmol/L (23-31); Chloride 98 mmol/L (98-107); Estimated GFR-MDRD 41; Globulin 2.8 g/dL (2.4-3.5); Glucose 74 mg/dL (83-110); Potassium 4.9 mmol/L (3.5-5.1); Protein, Total 6.5 g/dL (6.0-8.3); Sodium 129 mmol/L (136-145)
[2020-02-24] MEDS: Aspirin 81 mg Enteric Coated Tablet PO SCH (08:03)
[2020-02-24] MEDS: Cholestyramine/Aspartame 4 gm Packet PO SCH ×2 (08:03→21:01)
[2020-02-24] MEDS: Dexamethasone 4 MG TAB PO SCH (08:03)
[2020-02-24] MEDS: Spironolactone 25 MG TAB PO SCH ×2 (08:03→19:36)
[2020-02-24] MEDS: Clopidogrel Bisulfate 75 MG TAB PO SCH (08:03)
[2020-02-24] MEDS: Amiodarone 200 MG TAB PO SCH ×3 (08:03→19:36)
[2020-02-24] MEDS: Enoxaparin Sodium 30 MG/0.3 ML SYRINGE SC SCH (08:04)
--- NOTE | 2020-02-24 09:35 | PDOC.CPN ---
- Subjective Date: 02/24/20 Time: 09:37 Interval history: The pt seen and examined. No overnight events. No cardiac complaints. - Objective Allergies/Adverse Reactions: Allergies Allergy/AdvReac Type Severity Reaction Status Date / Time cefazolin [From [facility]] Allergy Unknown Rash Verified 02/15/20 23:52 Visit Medications: Current Medications Acetaminophen (Tylenol) 650 mg PO Q4H PRN PRN Reason: Headache/Fever/Mild Pain (1-3) Hydrocodone Bitart/Acetaminophen ([place] 5/325) 1 tab PO Q4H PRN PRN Reason: Moderate Pain (4-6) Al Hydroxide/Mg Hydroxide (Maalox) 30 ml PO Q4H PRN PRN Reason: Indigestion Last Admin: 02/18/20 03:42 Dose: 30 ml Albuterol Sulfate (Proventil Hfa) 2 puff INH Q2H PRN PRN Reason: SOB &/or Wheezing Amiodarone HCl (Cordarone) 400 mg PO TID [facility] Last Admin: 02/24/20 08:03 Dose: 400 mg Aspirin (Ecotrin) 81 mg PO DAILY [facility] Last Admin: 02/24/20 08:03 Dose: 81 mg Bisacodyl (Dulcolax) 10 mg PO DAILYPRN PRN PRN Reason: Constipation Bisacodyl (Dulcolax) 10 mg UT DAILYPRN PRN PRN Reason: Constipation Cholestyramine Resin (Questran Light) 4 gm PO 1000,2200 [facility] Last Admin: 02/24/20 08:03 Dose: 4 gm Clopidogrel Bisulfate (Plavix) 75 mg PO DAILY [facility] Last Admin: 02/24/20 08:03 Dose: 75 mg Dexamethasone (Decadron) 6 mg PO DAILY [facility] Last Admin: 02/24/20 08:03 Dose: 6 mg Enoxaparin Sodium (Lovenox) 30 mg SC 0900 [facility] Last Admin: 02/24/20 08:04 Dose: 30 mg Guaifenesin/Dextromethorphan (Robitussin Dm) 15 ml PO Q4H PRN PRN Reason: Cough Promethazine HCl 12.5 mg/ (Sodium Chloride) 50.5 mls @ 202 mls/hr IVPB Q6H PRN PRN Reason: Nausea/vomiting use second Norepinephrine Bitartrate 16 (mg/ Dextrose/Water) 250 mls @ 0 mls/hr IVPB INF [facility]; Protocol Last Admin: 02/18/20 14:33 Dose: 250 mls Dobutamine HCl/Dextrose 500 mg (/ Device) 250 mls @ 5.33 mls/hr IVPB INF [facility]; Protocol Last Admin: 02/23/20 15:44 Dose: 250 mls Ondansetron HCl (Zofran) 4 mg IVP Q6H PRN PRN Reason: Nausea/Vomiting use 1st Last Admin: 02/17/20 18:36 Dose: 4 mg Pantoprazole Sodium (Protonix) 40 mg PO DAILY [facility] Last Admin: 02/24/20 08:03 Dose: 40 mg Rosuvastatin Calcium (Crestor) 10 mg PO HS [facility] Last Admin: 02/23/20 20:26 Dose: 10 mg Senna/Docusate Sodium (Senokot S) 2 tab PO BID PRN PRN Reason: Constipation Simethicone (Mylicon Chewable) 80 mg PO PCHS PRN PRN Reason: Gas Pain Last Admin: 02/17/20 22:48 Dose: 80 mg Sodium Chloride (Flush - Normal Saline) 10 ml IVF Q12HR [facility] Last Admin: 02/24/20 08:04 Dose: 10 ml Sodium Chloride (Flush - Normal Saline) 10 ml IVF PRN PRN PRN Reason: Saline Flush Spironolactone (Aldactone) 25 mg PO QAM [facility] Last Admin: 02/24/20 08:03 Dose: 25 mg Spironolactone (Aldactone) 50 mg PO QPM [facility] Last Admin: 02/23/20 20:27 Dose: 50 mg Vital Signs & Weight: Vital Signs Temp Pulse Resp BP BP Pulse Ox 02/24/20 08:00 97.4 F L 66 18 130/78 100 02/24/20 05:00 98.0 F 65 18 127/61 96 02/24/20 00:00 97.7 F 71 18 113/74 95 Weight 127 lb - Physical Exam General: other (confused) Neck: supple neck Cardiac: regular rate and rhythm, S1/S2 Lungs: decreased breath sounds Extremities: no edema - Labs Result Diagrams: 02/23/20 03:35 02/24/20 04:21 Troponin/CKMB CK-MB (CK-2) 1.7 ng/mL (0-6.6) 02/15/20 20:04 Troponin I 0.229 ng/mL (< 0.028) H 02/16/20 13:26 - Telemetry Sinus rhythms and dysrhythmias: sinus rhythm - Assessment/Plan Assessment/Plan: 1. 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 Amyloidosis - Per Dr Moreno at [facility], the pt is not good candidate for medical tx; Plan to tx to [facility] for urgent heart transplant 3. Hypotension - stable with dobutamine drip; off Levophed 4. Aflutter - converted back to SR on 02/21/2020; well controlled HR with Amiodarone taper (Amiodarone 400mg BID since 02/22/2020) 5. CKD - improved renal function. 6. UTI 7. Hx of CVA - on Plavix and ASA 8. mod MR 9. Lupus 10. COVID 19 positive MAR reviewed * Still waiting on a bed for transfer. I agree with the A/P by the GRIP [employer]PER. The BMP indicatges the renal function has decreased with the decreased dobutamine. She will need this for the cardiac output. The HR has remained stable. May need to switch to Milrinone. She is still waiting for transfer to [facility]. angel
--- NOTE | 2020-02-24 14:43 | PDOC.HOSPP ---
- Subjective Encounter Date: 02/24/20 Encounter Time: 11:00 Subjective: The patient is sleeping in bed, does not answer many questions. Denies chest pain or SOB, no fevers. Awaiting transfers till - Objective Vital Signs & Weight: Vital Signs (12 hours) Temp Pulse Resp BP BP Pulse Ox 02/24/20 12:00 98.4 F 72 18 125/75 99 02/24/20 08:00 97.4 F L 66 18 130/78 100 02/24/20 05:00 98.0 F 65 18 127/61 96 Weight Weight 127 lb Most Recent Monitor Data Heart Rate from ECG 90 NIBP 127/95 NIBP BP-Mean 105 Respiration from ECG 16 SpO2 73 I&O: 02/23/20 02/24/20 02/25/20 06:59 06:59 06:59 Intake Total 920 1317.4 Output Total 2 650 Balance 918 667.4 Result Diagrams: 02/23/20 03:35 02/24/20 04:21 Hospitalist ROS - Review of Systems Constitutional: denies: fever, chills - Medication Medications: Active Medications Generic Name Dose Route Start Last Admin Trade Name Freq PRN Reason Stop Dose Admin Al Hydroxide/Mg Hydroxide 30 ml 02/17/20 21:06 02/18/20 03:42 Maalox PO 30 ml Q4H PRN Administration Indigestion Amiodarone HCl 400 mg 02/22/20 15:00 02/24/20 08:03 Cordarone PO 400 mg TID PADMAJA Administration Aspirin 81 mg 02/16/20 09:00 02/24/20 08:03 Ecotrin PO 81 mg DAILY PADMAJA Administration Cholestyramine Resin 4 gm 02/18/20 22:00 02/24/20 08:03 Questran Light PO 4 gm 1000,2200 PADMAJA Administration Clopidogrel Bisulfate 75 mg 02/16/20 09:00 02/24/20 08:03 Plavix PO 75 mg DAILY PADMAJA Administration Dexamethasone 6 mg 02/22/20 09:00 02/24/20 08:03 Decadron PO 6 mg DAILY PADMAJA Administration Enoxaparin Sodium 30 mg 02/16/20 09:00 02/24/20 08:04 Lovenox SC 30 mg 0900 PADMAJA Administration Norepinephrine Bitartrate 16 250 mls @ 0 mls/hr 02/18/20 14:00 02/18/20 14:33 mg/ Dextrose/Water IVPB 250 mls INF PADMAJA Administration Protocol As Directed Ondansetron HCl 4 mg 02/16/20 01:07 02/17/20 18:36 Zofran IVP 4 mg Q6H PRN Administration Nausea/Vomiting use 1st Pantoprazole Sodium 40 mg 02/16/20 09:00 02/24/20 08:03 Protonix PO 40 mg DAILY PADMAJA Administration Rosuvastatin Calcium 10 mg 02/17/20 21:00 02/23/20 20:26 Crestor PO 10 mg HS PADMAJA Administration Simethicone 80 mg 02/17/20 21:06 02/17/20 22:48 Mylicon Chewable PO 80 mg PCHS PRN Administration Gas Pain Sodium Chloride 10 ml 02/16/20 09:00 02/24/20 08:04 Flush - Normal Saline IVF 10 ml Q12HR PADMAJA Administration Spironolactone 25 mg 02/16/20 09:00 02/24/20 08:03 Aldactone PO 25 mg QAM PADMAJA Administration Spironolactone 50 mg 02/16/20 21:00 02/23/20 20:27 Aldactone PO 50 mg QPM PADMAJA Administration - Exam General Appearance: NAD, awake alert Eye: PERRL, anicteric sclera ENT: normocephalic atraumatic, no oropharyngeal lesions Neck: no JVD Heart: RRR, no murmur, no gallops, no rubs Respiratory: CTAB, no wheezes, no rales, no ronchi Gastrointestinal: soft, non-tender, non-distended, normal bowel sounds Extremities: no cyanosis, no clubbing, no edema Skin: normal turgor, no lesions, no rashes Neurological: cranial nerve grossly intact, normal sensation to touch, no focal deficits, no new deficit Musculoskeletal: normal tone, normal strength, no muscle wasting Psychiatric: normal affect, normal behavior, A&O x 3, oriented to person Hosp A/P - Plan This is 74 year old female with acute heart failure, also COVID + , has amylodiosis #Acute combined systolic/diastolic heart failure due to amyloidosis #Aflutter - on dobutamine drip, - off amiodarone drip, transitioned to 400 mg tid - continue spironolactone - needs transfer to [facility] for heart transplant, currently awaiting a bed Right lung pneumonia - possibly from COVID vs bacterial - received zosyn 02/15 - 02/18. Repeat X ray 02/20 shows improvement in right lung base - continue dexamethasone day 2 - blood culture, urine culture unremarkable Hallucinations - CT brain shows no stroke - monitor conservatively Lupus - stable
[2020-02-24] MEDS: DOBUTamine 500 mg/250 ml 500 MG in Premix Bag 1 BAG IVPB SCH (17:18)
[2020-02-24 18:05] LABS: Anion Gap 13 mmol/L (10-20); BUN (Urea Nitrogen) 22 mg/dL (9.8-20.1); Calc. Creatinine Clearance 36 mL/min (70-130); Calcium 9.3 mg/dL (7.8-10.44); Carbon Dioxide 20 mmol/L (23-31); Chloride 105 mmol/L (98-107); Estimated GFR-MDRD 49; Glucose 99 mg/dL (83-110); Magnesium 2.3 mg/dL (1.6-2.6); Potassium 5.1 mmol/L (3.5-5.1); Sodium 133 mmol/L (136-145)
[2020-02-24 18:15] LABS: Band 18 % (5-11); Hemoglobin 11.9 g/dL (12.0-16.0); Lymphocytes 4 % (21-51); MDiff Complete? YES; Mean Corpuscular HGB CONC 32.5 g/dL (32.0-36.0); Mean Corpuscular Hemoglobin 25.4 pg (27.0-31.0); Mean Corpuscular Volume 78.2 fL (78.0-98.0); Mean Platelet Volume 6.2 fL (7.4-10.4); Monocytes 7 % (0-10); Neutrophil 70 % (42-75); Nucleated RBC 1 % (0); Platelet Count 151 thou/uL (130-400); Platelet Morphology Comment Appears Adequate; Polychromasia MODERATE = 3-4 cells (100X) (0-2/hpf); RBC Distribution Width 21.1 % (11.5-14.5); Reactive Lymphocytes 1 % (0-10); Red Blood Cell (RBC) Count 4.67 mill/uL (4.20-5.40); Schistocytes SLIGHT = 2-5 cells (100X) (0-1/hpf); Target Cells MARKED = >16 cells (100X) (0-1/hpf)
--- NOTE | 2020-02-24 18:46 | PRG ---
DATE OF SERVICE: 02/24/2020 This is from [facility]. SUBJECTIVE: Ms. Es Magdaleno had a variable week. She required dobutamine plus norepinephrine to support blood pressure. She was in atrial flutter. She converted back into sinus rhythm with amiodarone. Because of that, norepinephrine was able to be titrated off. However, she is COVID-19 positive. She was a little bit hypoxic at first; however, she has been doing well and able to maintain her oxygen saturation about 95% or so on room air. She did receive dexamethasone treatment. Apparently in the past days, norepinephrine was able to be titrated off and she was on dobutamine alone and the dobutamine was titrated down to 2.5. However, she became a little more tachypneic with shortness of breath and her sodium is dropping. REVIEW OF SYSTEMS: GENERAL: There is no fever, chills, or productive cough. HEENT: There is no change in vision, hearing, or swallowing. PULMONARY: She says she is really not short of breath, but is not quite normal. CARDIAC: There are no chest pain, palpitations, or syncope. GI: She was not nauseous, some diarrhea, but apparently has had no complaints today. : Nurse has been reporting that she has been incontinent. She has been urinating in her bed, so her output is not well documented. She is sometimes able to make it to the bathroom and she is sometimes able to make it to the toilet, sometimes she cannot. MUSCULOSKELETAL: There are no new complaints. NEUROLOGIC: There is no new focal deficits or weaknesses. PSYCHIATRIC: She said she is not depressed, but then she appears a bit depressed. MEDICATIONS: She is on; 1. Amiodarone 400 mg t.i.d. 2. Aspirin 81 mg daily. 3. Cholestyramine resin 4 g b.i.d. 4. Plavix 75 mg daily. 5. Dexamethasone 6 mg daily for COVID-19. 6. Dobutamine was at 2.5 mcg/kg per minute, but it has been titrated to 5 mcg/ kg per minute. 7. Enoxaparin 30 mg subcutaneous. 8. Ondansetron 4 mg IV p.r.n. 9. Rosuvastatin 10 mg at bedtime. 10. Spironolactone 25 mg p.o. q.a.m. and 50 mg p.o. q.p.m. Her telemetry was reviewed, it is mainly sinus rhythm, occasional PVC, there are no concerning arrhythmias. OBJECTIVE: VITAL SIGNS: The latest ones are heart rate 72, blood pressure 125/ 75. I checked her pulse ox, it is about 96% oxygen saturation on room air. GENERAL: She is alert and conversational. However, she is a bit tachypneic, little bit short of breath, and appears fatigued. HEENT: Show EOMI, slight tinge of yellow in the sclerae. Oropharynx is benign with moist mucosa. NECK: Her JVP is very elevated right at the earlobe with positive hepatojugular reflux. PULMONARY: There is good air movement in bilateral upper lung blakely; however, there is decreased breath sounds bibasilar, there is a slight right basilar crackle. CARDIAC: Regular rate and rhythm with normal S1 and S2, and 3/6 holosystolic murmur at the left upper sternal border. ABDOMEN: A bit distended with positive fluid waves, a bit ascites like. EXTREMITIES: Her lower extremities have minimal edema. LABORATORY VALUES: Today show sodium 129, potassium 4.9, chloride at 98, creatinine at 1.5, and BUN 2.5. Her total bilirubin is elevated at 3.2, AST is elevated at 116, and ALT elevated at 664. Her TSH is at 2.7956. ASSESSMENT: 74-year-old female is in a tenuous state with combination of positive COVID-19 infection and acute on chronic heart failure with reduced ejection fraction. She is currently volume overloaded as seen by her elevated JVP, some pulmonary edema, and her decrease in sodium value. She likely has right heart failure that may be becoming a little bit worse with elevation of total bilirubin. So, she will need definitive therapy. She had an underlying amyloid cardiomyopathy. Currently, we are waiting for open bed in [facility] for transfer. Please see the following for my recommendations. RECOMMENDATIONS: 1. Agree with increasing dobutamine to 5 mcg/kg per minute IV GTT. 2. We will follow labs tomorrow morning. If her systolic blood pressure is fine , but then laboratory values are still concerning, we might need to add Milrinone at 0.125 and eventually increase to 0.25 to provide greater cardiac output so we can clear her total bilirubin and decongest her. By doing this, we can reduce her dobutamine down to be less arrhythmogenic. With her current situation which is without needing norepinephrine and sufficient blood pressure, this may be a good alternative. However, we will need to assess daily since she was just weaned off norepinephrine recently. 3. Please consider placing Berger catheter because she is incontinent. We really need to know what her I's and O's are, so we can manage her better. 4. We will watch her I's and O's and electrolytes. She might need diuretics tomorrow morning. 5. We will contact [facility] again today to let them know the change in her status, so she does need an ICU bed now. Without needing an ICU bed, perhaps a bed will be open up sooner at [facility]. It has been a pleasure taking care of Ms. Es Magdaleno. If you have any questions, please give me a call. Job ID: [id number] MTDD
[2020-02-24] MEDS: Rosuvastatin 10 MG TAB PO SCH (19:36)
[2020-02-25 05:34] LABS: #Basophils 0.1 thou/uL (0.0-0.2); #Lymphocytes 0.4 thou/uL (1.20-3.40); #Monocytes 0.6 thou/uL (0.11-0.59); #Neutrophils 8.7 thou/uL (1.40-6.50); %Basophils 1.3 % (0.0-1.0); %Eosinophils 0.1 % (0.0-10.0); %Lymphocytes 3.7 % (21.0-51.0); %Monocytes 6.5 % (0.0-10.0); %Neutrophils 88.4 % (42.0-75.0); Hemoglobin 11.7 g/dL (12.0-16.0); Mean Corpuscular HGB CONC 32.8 g/dL (32.0-36.0); Mean Corpuscular Hemoglobin 25.8 pg (27.0-31.0); Mean Corpuscular Volume 78.7 fL (78.0-98.0); Mean Platelet Volume 11.7 fL (7.4-10.4); Platelet Count 151 thou/uL (130-400); RBC Distribution Width 21.1 % (11.5-14.5); Red Blood Cell (RBC) Count 4.52 mill/uL (4.20-5.40); White Blood Cell (WBC) Count 9.8 thou/uL (4.8-10.8)
[2020-02-25 05:51] LABS: ALT (SGPT) 54 U/L (8-55); AST (SGOT) 85 U/L (5-34); Albumin 3.5 g/dL (3.4-4.8); Alkaline Phosphatase 26 U/L (40-110); Anion Gap 12 mmol/L (10-20); BUN (Urea Nitrogen) 19 mg/dL (9.8-20.1); Bilirubin, Total 2.8 mg/dL (0.2-1.2); Calc. Creatinine Clearance 38 mL/min (70-130); Calcium 9.6 mg/dL (7.8-10.44); Carbon Dioxide 23 mmol/L (23-31); Chloride 106 mmol/L (98-107); Estimated GFR-MDRD 54; Globulin 2.6 g/dL (2.4-3.5); Glucose 96 mg/dL (83-110); Magnesium 2.3 mg/dL (1.6-2.6); Protein, Total 6.1 g/dL (6.0-8.3); Sodium 136 mmol/L (136-145)
[2020-02-25] MEDS: Clopidogrel Bisulfate 75 MG TAB PO SCH (08:59)
[2020-02-25] MEDS: Dexamethasone 4 MG TAB PO SCH (08:59)
[2020-02-25] MEDS: Enoxaparin Sodium 30 MG/0.3 ML SYRINGE SC SCH (08:59)
[2020-02-25] MEDS: Aspirin 81 mg Enteric Coated Tablet PO SCH (08:59)
[2020-02-25] MEDS: Amiodarone 200 MG TAB PO SCH ×2 (08:59→20:11)
[2020-02-25] MEDS: Spironolactone 25 MG TAB PO SCH ×2 (09:00→20:11)
[2020-02-25] MEDS: Cholestyramine/Aspartame 4 gm Packet PO SCH ×2 (09:00→20:11)
--- NOTE | 2020-02-25 12:37 | PQF ---
CLINICAL DOCUMENTATION IMPROVEMENT CLARIFICATION FORM: ICD-10 Updated PLEASE DO AN ADDENDUM TO THE PROGRESS NOTE WITH ANY DOCUMENTATION UPDATES OR ADDITIONS AND CARRY THROUGH TO DC SUMMARY. THANK YOU. DATE: 02/25/2020 ATTN: Dr. King Please exercise your independent, professional judgment in responding to the clarification form. Clinical indicators are provided on the bottom of this form for your review Please check appropriate box(s) to clarify if the following diagnosis has been ruled in or ruled out: Sepsis [ X ] Ruled in diagnosis [ ] Continue to treat [ ] Resolved [ ] Ruled out diagnosis [ ] Improving [ ] Cannot rule out diagnosis [ ] Other diagnosis [ ] Unable to determine In addition, please specify: Present on Admission (POA): [X ] Yes [ ] No [ ] Unable to determine For continuity of documentation, please document condition throughout progress notes and discharge summary. Thank You. CLINICAL INDICATORS - SIGNS / SYMPTOMS / LABS / RESULTS AND LOCATION IN MR ER Record 02/14: VS: BP 100/73, Pulse 117, Resp. 29, Temp. 97.6 H&P 02/14 (Aterno) In ED, tachypnea and tachycardia noted, lactic acid 5.5, increased to 5.9 A/P: severe sepsis w/ unknown source - presentation could suggest viral illness 02/17 (Arata) COVID-19 positive 02/21-02/22 (Fernando) Acute combined systolic/diastolic heart failure d/t amyloidosis Right lung pneumonia - possibly from COVID vs bacterial RISKS: H&P 02/14 (Aterno) PMH CHF, CKD, HTN, lupus, CAD, CVA. 02/17 (Ludwig) Cardiomyopathy. Vazquez positive pneumonia. TERATMENT: 02/22 (Fernando) received zosyn 02/15 - 02/18 02/23 (Fernando) repeat x-ray 02/20 shows improvement in r lung base - continue dexamethasone day 2 Thank you, Juany (This form is maintained as a part of the permanent medical record) 2014 [employer]. All Rights Reserved Juany Madison RN, BSN [email or web address] [employer] [facility]
--- NOTE | 2020-02-25 13:07 | PDOC.CPN ---
- Subjective Date: 02/25/20 Time: 13:09 Interval history: The pt seen and examined. No overnight events. No cardiac complaints, except feeling weak. - Objective Allergies/Adverse Reactions: Allergies Allergy/AdvReac Type Severity Reaction Status Date / Time cefazolin [From [facility]] Allergy Unknown Rash Verified 02/15/20 23:52 Visit Medications: Current Medications Acetaminophen (Tylenol) 650 mg PO Q4H PRN PRN Reason: Headache/Fever/Mild Pain (1-3) Hydrocodone Bitart/Acetaminophen ([place] 5/325) 1 tab PO Q4H PRN PRN Reason: Moderate Pain (4-6) Al Hydroxide/Mg Hydroxide (Maalox) 30 ml PO Q4H PRN PRN Reason: Indigestion Last Admin: 02/18/20 03:42 Dose: 30 ml Albuterol Sulfate (Proventil Hfa) 2 puff INH Q2H PRN PRN Reason: SOB &/or Wheezing Amiodarone HCl (Cordarone) 200 mg PO BID [facility] Last Admin: 02/25/20 08:59 Dose: 200 mg Aspirin (Ecotrin) 81 mg PO DAILY [facility] Last Admin: 02/25/20 08:59 Dose: 81 mg Bisacodyl (Dulcolax) 10 mg PO DAILYPRN PRN PRN Reason: Constipation Bisacodyl (Dulcolax) 10 mg NE DAILYPRN PRN PRN Reason: Constipation Cholestyramine Resin (Questran Light) 4 gm PO 1000,2200 [facility] Last Admin: 02/25/20 09:00 Dose: 4 gm Clopidogrel Bisulfate (Plavix) 75 mg PO DAILY [facility] Last Admin: 02/25/20 08:59 Dose: 75 mg Dexamethasone (Decadron) 6 mg PO DAILY [facility] Last Admin: 02/25/20 08:59 Dose: 6 mg Enoxaparin Sodium (Lovenox) 30 mg SC 0900 [facility] Last Admin: 02/25/20 08:59 Dose: 30 mg Guaifenesin/Dextromethorphan (Robitussin Dm) 15 ml PO Q4H PRN PRN Reason: Cough Promethazine HCl 12.5 mg/ (Sodium Chloride) 50.5 mls @ 202 mls/hr IVPB Q6H PRN PRN Reason: Nausea/vomiting use second Dobutamine HCl/Dextrose 500 mg (/ Device) 250 mls @ 8.88 mls/hr IVPB INF [facility]; Protocol Last Admin: 02/24/20 17:18 Dose: 250 mls Ondansetron HCl (Zofran) 4 mg IVP Q6H PRN PRN Reason: Nausea/Vomiting use 1st Last Admin: 02/17/20 18:36 Dose: 4 mg Pantoprazole Sodium (Protonix) 40 mg PO DAILY [facility] Last Admin: 02/25/20 09:00 Dose: 40 mg Rosuvastatin Calcium (Crestor) 10 mg PO HS [facility] Last Admin: 02/24/20 19:36 Dose: 10 mg Senna/Docusate Sodium (Senokot S) 2 tab PO BID PRN PRN Reason: Constipation Simethicone (Mylicon Chewable) 80 mg PO PCHS PRN PRN Reason: Gas Pain Last Admin: 02/17/20 22:48 Dose: 80 mg Sodium Chloride (Flush - Normal Saline) 10 ml IVF Q12HR [facility] Last Admin: 02/25/20 09:00 Dose: Not Given Sodium Chloride (Flush - Normal Saline) 10 ml IVF PRN PRN PRN Reason: Saline Flush Spironolactone (Aldactone) 25 mg PO QAM [facility] Last Admin: 02/25/20 09:00 Dose: 25 mg Spironolactone (Aldactone) 50 mg PO QPM [facility] Last Admin: 02/24/20 19:36 Dose: 50 mg Vital Signs & Weight: Vital Signs Temp Pulse Resp BP BP Pulse Ox 02/25/20 09:05 97.8 F 75 18 122/65 97 02/25/20 04:00 98.5 F 72 20 108/57 L 97 Weight 124 lb 14.4 oz - Physical Exam General: alert & oriented x3 HEENT: mucus membranes moist Cardiac: regular rate and rhythm, S1/S2 Lungs: decreased breath sounds Neuro: cranial nerve 2-12 intact Extremities: no edema - Labs Result Diagrams: 02/25/20 05:07 02/25/20 05:07 Troponin/CKMB CK-MB (CK-2) 1.7 ng/mL (0-6.6) 02/15/20 20:04 Troponin I 0.229 ng/mL (< 0.028) H 02/16/20 13:26 - Telemetry Sinus rhythms and dysrhythmias: sinus rhythm - Assessment/Plan Assessment/Plan: 1. 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 Amyloidosis - Per Dr Moreno at [facility], the pt is not good candidate for medical tx; Plan to tx to [facility] for urgent heart transplant 3. Hypotension - stable with dobutamine drip; off Levophed 4. Aflutter - converted back to SR on 02/21/2020; well controlled HR with Amiodarone taper (Amiodarone 200 mg BID since 02/24/2020) 5. CKD - improving. 6. UTI 7. Hx of CVA - on Plavix and ASA 8. mod MR 9. Lupus 10. COVID 19 positive MAR reviewed * Still waiting on a bed for transfer.
--- NOTE | 2020-02-25 13:17 | PDOC.HOSPP ---
- Subjective Encounter Date: 02/25/20 Encounter Time: 08:40 Subjective: The patient has no complaints, no chest pain or SOB. SHe states she did not eat her breakfast this morning but was tired, but would like some milk and cheerios. She wants to go home - Objective Vital Signs & Weight: Vital Signs (12 hours) Temp Pulse Resp BP BP Pulse Ox 02/25/20 09:05 97.8 F 75 18 122/65 97 02/25/20 04:00 98.5 F 72 20 108/57 L 97 Weight Weight 124 lb 14.4 oz Most Recent Monitor Data Heart Rate from ECG 90 NIBP 127/95 NIBP BP-Mean 105 Respiration from ECG 16 SpO2 73 I&O: 02/24/20 02/25/20 02/26/20 06:59 06:59 06:59 Intake Total 1317.4 635 Output Total 650 2300 Balance 667.4 -1665 Result Diagrams: 02/25/20 05:07 02/25/20 05:07 Hospitalist ROS - Review of Systems Constitutional: denies: fever, chills - Medication Medications: Active Medications Generic Name Dose Route Start Last Admin Trade Name Freq PRN Reason Stop Dose Admin Al Hydroxide/Mg Hydroxide 30 ml 02/17/20 21:06 02/18/20 03:42 Maalox PO 30 ml Q4H PRN Administration Indigestion Amiodarone HCl 200 mg 02/24/20 21:00 02/25/20 08:59 Cordarone PO 200 mg BID PADMAJA Administration Aspirin 81 mg 02/16/20 09:00 02/25/20 08:59 Ecotrin PO 81 mg DAILY PADMAJA Administration Cholestyramine Resin 4 gm 02/18/20 22:00 02/25/20 09:00 Questran Light PO 4 gm 1000,2200 PADMAJA Administration Clopidogrel Bisulfate 75 mg 02/16/20 09:00 02/25/20 08:59 Plavix PO 75 mg DAILY PADMAJA Administration Dexamethasone 6 mg 02/22/20 09:00 02/25/20 08:59 Decadron PO 6 mg DAILY PADMAJA Administration Enoxaparin Sodium 30 mg 02/16/20 09:00 02/25/20 08:59 Lovenox SC 30 mg 0900 PADMAJA Administration Dobutamine HCl/Dextrose 500 mg 250 mls @ 8.88 mls/hr 02/24/20 11:46 07/07/20 17:18 / Device IVPB 250 mls INF PADMAJA Administration Protocol 5 MCG/KG/MIN Ondansetron HCl 4 mg 02/16/20 01:07 02/17/20 18:36 Zofran IVP 4 mg Q6H PRN Administration Nausea/Vomiting use 1st Pantoprazole Sodium 40 mg 02/16/20 09:00 02/25/20 09:00 Protonix PO 40 mg DAILY PADMAJA Administration Rosuvastatin Calcium 10 mg 02/17/20 21:00 02/24/20 19:36 Crestor PO 10 mg HS PADMAJA Administration Simethicone 80 mg 02/17/20 21:06 02/17/20 22:48 Mylicon Chewable PO 80 mg PCHS PRN Administration Gas Pain Sodium Chloride 10 ml 02/16/20 09:00 02/25/20 09:00 Flush - Normal Saline IVF Not Given Q12HR PADMAJA Spironolactone 25 mg 02/16/20 09:00 02/25/20 09:00 Aldactone PO 25 mg QAM PADMAJA Administration Spironolactone 50 mg 02/16/20 21:00 02/24/20 19:36 Aldactone PO 50 mg QPM PADMAJA Administration - Exam General Appearance: NAD, awake alert Eye: PERRL, anicteric sclera ENT: normocephalic atraumatic, no oropharyngeal lesions Neck: no JVD Heart: RRR, no murmur, no gallops, no rubs Respiratory: CTAB, no wheezes, no rales, no ronchi Gastrointestinal: soft, non-tender, non-distended, normal bowel sounds Extremities: no cyanosis, no clubbing, no edema Skin: normal turgor, no lesions, no rashes Hosp A/P - Plan This is 74 year old female with acute heart failure, also COVID + , has amylodiosis #Acute combined systolic/diastolic heart failure due to amyloidosis #Aflutter - she is still on dobutamine drip - continue oral amiodarone - continue spironolctone - pending transfer to [facility] for heart transplant, currently awaiting a bed Right lung pneumonia - possibly from COVID vs bacterial - received zosyn 02/15 - 02/18. Repeat X ray 02/20 shows improvement in right lung base - continue dexamethasone day 3 - blood culture, urine culture unremarkable - will repeat COVID swab here since none on file Hallucinations - CT brain shows no stroke - monitor conservatively Lupus - stable Dispo: pending bed
--- NOTE | 2020-02-25 15:15 | PRG ---
DATE OF SERVICE: 02/25/2020 SUBJECTIVE: Ms. Magdaleno has responded well to increasing dobutamine from 2.5 mcg/kg per minute to 5 mcg/kg per minute. She has felt better and she is breathing easier. She said that she had progressive worsening cough and worse yesterday. After increasing the dobutamine, her cough decreased and this morning her cough pretty much went away. It was a nonproductive dry cough. She did not have any fevers. A Berger catheter was placed because she was incontinent for 2 days. It was difficult to record In's and Out's. REVIEW OF SYSTEMS: GENERAL: There is no fever or chills. HEENT: There is no change in vision, hearing, or swallowing. PULMONARY: Please see HPI. CARDIAC: She denies palpitation, chest pains and syncope. GI: She did not complain of nausea or diarrhea today. : She is on a Berger catheter now. MUSCULOSKELETAL: There is no muscle or joint pains. INTEGUMENT: There is no complaint of new skin lesions or breakdown. NEUROLOGIC: There is no focal weakness or deficits. PSYCHIATRIC: She is not depressed. PHYSICAL EXAMINATION: Telemetry was reviewed. She is in sinus rhythm with occasional PACs. There are no concerning arrhythmia at this point. VITAL SIGNS: Heart rate 75, blood pressure 122/65, repeat blood pressure 122/ 65. GENERAL: She is alert and conversational, sitting comfortably in bed. She is less tachypneic today. She is more energetic today, is breathing much easier today. She is more conversational today. HEENT: Show EOMI. Oropharynx is benign with moist mucosa. NECK: JVP is decreased from yesterday, today it is about 15 cm at the angle of the jaw, is lower than the earlobes, so she has decrease in JVP today. PULMONARY: There is good air movement bilaterally. There are no crackles. CARDIAC: Regular rate and rhythm with normal S1, S2, there is 3/6 holosystolic murmur at the apex with radiation to the left axilla. ABDOMEN: Soft, nontender, but somewhat distended. It is more like ascitic fluid. Positive bowel sounds. EXTREMITIES: Lower extremities are well perfused. There is no discernible edema. Her net I's and O's were 635 in and 2300 out. I am not sure the in is correct. However, this gave her a net negative 1665 mL out. LABORATORY DATA: Her sodium has increased to 136, potassium remains stable at 5 , BUN 19, creatinine has improved to 1.19. ASSESSMENT: 74-year-old lady has improved with increase dobutamine to 5 mcg/kg per minute. She has much more active diuresis, was net negative with normalized sodium. It also took away pulmonary edema to the point where she is not coughing anymore. Furthermore, her creatinine has improved. So she has demonstrated she needs at least 5 mcg/kg/minute of dobutamine. With a net negative output and normalizing of electrolytes, she will need to remain on this present dose of dobutamine, which is 5 mcg/kg per minute. Due to recent hypotension, needing norepinephrine about 3 days ago, we will not attempt to switch over to milrinone at this point. Switching to milrinone in the vasodilatory state can quickly drop her blood pressure. For now, since she is improving on 5 mcg/kg of dobutamine, we will leave her at this for now. Please see the following for my recommendations. RECOMMENDATIONS: 1. I have contacted Dr. Ad Moreno about transfer to [facility]. I notified him that she is no longer in ICU, she does not need norepinephrine drip. Consequently, she does not need an ICU bed. So Dr. Moreno is working on facilitating quicker transfer since the ICU bed is more longer needed. 2. Please continue dobutamine at 5 mcg/kg/minute and follow laboratory values. We will need to repeat a comprehensive metabolic panel tomorrow morning to see if with this increase, has a clearing of her total bilirubin or not. If it has not, then we will need to augment a little bit more with milrinone. At this point, there is no need. 3. Spironolactone 25 in the morning and 50 mg in the afternoon, together with the dobutamine is providing her sufficient amount of volume removal. She does not need any more diuretics at this point. 4. She is on dexamethasone for COVID-19. If she develops any other suspicious symptoms, we will need to treat her for bacterial infection just on top of COVID -19. It has been a pleasure taking care of Ms. Magdaleno. If you have any questions, please give me a call. Job ID: [id number]
--- NOTE | 2020-02-25 17:14 | PDOC.PALPN ---
Palliative Progress Note - Subjective Awake, alert, pronounced weakness. - Objective Vital Signs: Vital Signs - Most Recent Temp Pulse Resp BP Pulse Ox 97.7 F 74 18 121/63 99 02/25/20 13:15 02/25/20 15:00 02/25/20 15:00 02/25/20 15:00 02/25/20 15:00 - Physical Exam Constitutional: cachectic, ill appearing HEENT: moist MMs, sclera anicteric Respiratory: no wheezing Cardiovascular: RRR Gastrointestinal: continent, soft, non-tender Genitourinary: continent Musculoskeletal: no cyanosis Neurology: moves all 4 limbs, no focal deficits Skin: cap refill <2 seconds, no lesions, no rash Psychiatric: A&O x 3, depressed - Assessment (1) Palliative care encounter Code(s): Z51.5 - ENCOUNTER FOR PALLIATIVE CARE Current Visit: Yes Status: Acute (2) Acute on chronic combined 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 Code(s): I50.43 - ACUTE ON CHRONIC COMBINED SYSTOLIC AND DIASTOLIC HRT FAIL Current Visit: Yes Status: Acute (3) COVID-19 Code(s): U07.1 - COVID-19 Current Visit: Yes Status: Acute (4) Diarrhea Code(s): R19.7 - DIARRHEA, UNSPECIFIED Current Visit: Yes Status: Acute (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 Her long term care social worker goal is to go to [facility] to see her grandson. States that it is wearing on her waiting for transfer to [facility], we discussed measures to mitigate depression and "long days". Hopeful that her Covid test comes back negative, allowing a visit from her daughter. Will attempt to have [employer] books taken to her, she enjoys them States that she is so weak today that she can not get out of bed. Emotional support Therapeutic listening. [30] minutes spent on this encounter with >50% of the time in counseling and coordination of care. - ROS Constitutional: alert, loss appetite, weakness ENT: other (denies throat irritation, congestion) Respiratory: shortness of breath with extertion Cardiology: other (denies chest pain) Musculoskeletal: arthritis/arthralgias Neurological: other (denies tremors, numbness) Psychological: depression
[2020-02-25] MEDS: Rosuvastatin 10 MG TAB PO SCH (20:11)
[2020-02-26 06:07] LABS: ALT (SGPT) 47 U/L (8-55); AST (SGOT) 66 U/L (5-34); Albumin 3.4 g/dL (3.4-4.8); Alkaline Phosphatase 30 U/L (40-110); Anion Gap 13 mmol/L (10-20); BUN (Urea Nitrogen) 15 mg/dL (9.8-20.1); Bilirubin, Total 2.6 mg/dL (0.2-1.2); Calc. Creatinine Clearance 42 mL/min (70-130); Calcium 9.7 mg/dL (7.8-10.44); Carbon Dioxide 20 mmol/L (23-31); Chloride 105 mmol/L (98-107); Estimated GFR-MDRD 60; Globulin 2.7 g/dL (2.4-3.5); Glucose 116 mg/dL (83-110); Magnesium 2.1 mg/dL (1.6-2.6); Potassium 4.8 mmol/L (3.5-5.1); Protein, Total 6.1 g/dL (6.0-8.3); Sodium 133 mmol/L (136-145)
[2020-02-26 06:35] LABS: #Lymphocytes 0.9 thou/uL (1.20-3.40); #Monocytes 0.5 thou/uL (0.11-0.59); #Neutrophils 10.1 thou/uL (1.40-6.50); %Eosinophils 0.1 % (0.0-10.0); %Lymphocytes 7.9 % (21.0-51.0); %Monocytes 4.6 % (0.0-10.0); %Neutrophils 87.3 % (42.0-75.0); Hemoglobin 11.9 g/dL (12.0-16.0); Mean Corpuscular HGB CONC 32.2 g/dL (32.0-36.0); Mean Corpuscular Hemoglobin 25.4 pg (27.0-31.0); Mean Platelet Volume 11.3 fL (7.4-10.4); Platelet Count 147 thou/uL (130-400); RBC Distribution Width 20.9 % (11.5-14.5); Red Blood Cell (RBC) Count 4.66 mill/uL (4.20-5.40); White Blood Cell (WBC) Count 11.5 thou/uL (4.8-10.8)
[2020-02-26] MEDS: Enoxaparin Sodium 30 MG/0.3 ML SYRINGE SC SCH (07:44)
[2020-02-26] MEDS: Dexamethasone 4 MG TAB PO SCH (07:44)
[2020-02-26] MEDS: Aspirin 81 mg Enteric Coated Tablet PO SCH (07:45)
[2020-02-26] MEDS: Spironolactone 25 MG TAB PO SCH ×2 (07:45→20:51)
[2020-02-26] MEDS: Clopidogrel Bisulfate 75 MG TAB PO SCH (07:45)
[2020-02-26] MEDS: Amiodarone 200 MG TAB PO SCH ×2 (07:46→20:49)
[2020-02-26] MEDS ORDERED: Furosemide 40 MG/4 ML VIAL ONE (09:42)
[2020-02-26] MEDS: DOBUTamine 500 mg/250 ml 500 MG in Premix Bag 1 BAG IVPB SCH (09:43)
[2020-02-26] MEDS: Cholestyramine/Aspartame 4 gm Packet PO SCH ×2 (09:43→20:52)
[2020-02-26] MEDS ORDERED: HYDROcodone/Acetaminophen 5/325 mg Tablet PO PRN (10:35)
[2020-02-26] MEDS ORDERED: Furosemide 40 MG/4 ML VIAL SLOW IVP SCH (10:45)
[2020-02-26 12:14] VITALS: BMI 23.5
--- NOTE | 2020-02-26 13:07 | PDOC.CPN ---
- Subjective Date: 02/26/20 Time: 08:30 Interval history: The pt seen and examined. No overnight events. No cardiac complaints. - Objective Allergies/Adverse Reactions: Allergies Allergy/AdvReac Type Severity Reaction Status Date / Time cefazolin [From [facility]] Allergy Unknown Rash Verified 02/15/20 23:52 Visit Medications: Current Medications Acetaminophen (Tylenol) 650 mg PO Q4H PRN PRN Reason: Headache/Fever/Mild Pain (1-3) Hydrocodone Bitart/Acetaminophen ([place] 5/325) 1 tab PO Q4H PRN PRN Reason: Moderate Pain (4-6) Stop: 02/27/20 10:36 Al Hydroxide/Mg Hydroxide (Maalox) 30 ml PO Q4H PRN PRN Reason: Indigestion Last Admin: 02/18/20 03:42 Dose: 30 ml Albuterol Sulfate (Proventil Hfa) 2 puff INH Q2H PRN PRN Reason: SOB &/or Wheezing Amiodarone HCl (Cordarone) 200 mg PO BID [facility] Last Admin: 02/26/20 07:46 Dose: 200 mg Aspirin (Ecotrin) 81 mg PO DAILY [facility] Last Admin: 02/26/20 07:45 Dose: 81 mg Bisacodyl (Dulcolax) 10 mg PO DAILYPRN PRN PRN Reason: Constipation Bisacodyl (Dulcolax) 10 mg DE DAILYPRN PRN PRN Reason: Constipation Cholestyramine Resin (Questran Light) 4 gm PO 1000,2200 [facility] Last Admin: 02/26/20 09:43 Dose: 4 gm Clopidogrel Bisulfate (Plavix) 75 mg PO DAILY [facility] Last Admin: 02/26/20 07:45 Dose: 75 mg Dexamethasone (Decadron) 6 mg PO DAILY [facility] Last Admin: 02/26/20 07:44 Dose: 6 mg Enoxaparin Sodium (Lovenox) 30 mg SC 0900 [facility] Last Admin: 02/26/20 07:44 Dose: 30 mg Guaifenesin/Dextromethorphan (Robitussin Dm) 15 ml PO Q4H PRN PRN Reason: Cough Promethazine HCl 12.5 mg/ (Sodium Chloride) 50.5 mls @ 202 mls/hr IVPB Q6H PRN PRN Reason: Nausea/vomiting use second Dobutamine HCl/Dextrose 500 mg (/ Device) 250 mls @ 8.88 mls/hr IVPB INF [facility]; Protocol Last Admin: 02/26/20 09:43 Dose: 250 mls Milrinone Lactate/Dextrose 20 (mg/ Device) 100 mls @ 2.11 mls/hr IVPB INF [facility] Ondansetron HCl (Zofran) 4 mg IVP Q6H PRN PRN Reason: Nausea/Vomiting use 1st Last Admin: 02/17/20 18:36 Dose: 4 mg Pantoprazole Sodium (Protonix) 40 mg PO DAILY [facility] Last Admin: 02/26/20 07:45 Dose: 40 mg Rosuvastatin Calcium (Crestor) 10 mg PO HS [facility] Last Admin: 02/25/20 20:11 Dose: 10 mg Senna/Docusate Sodium (Senokot S) 2 tab PO BID PRN PRN Reason: Constipation Simethicone (Mylicon Chewable) 80 mg PO PCHS PRN PRN Reason: Gas Pain Last Admin: 02/17/20 22:48 Dose: 80 mg Sodium Chloride (Flush - Normal Saline) 10 ml IVF Q12HR [facility] Last Admin: 02/26/20 07:43 Dose: 10 ml Sodium Chloride (Flush - Normal Saline) 10 ml IVF PRN PRN PRN Reason: Saline Flush Spironolactone (Aldactone) 25 mg PO QAM [facility] Last Admin: 02/26/20 07:45 Dose: 25 mg Spironolactone (Aldactone) 50 mg PO QPM [facility] Last Admin: 02/25/20 20:11 Dose: 50 mg Vital Signs & Weight: Vital Signs Temp Pulse Pulse Pulse Resp BP BP 02/26/20 09:05 83 73 128/61 121/62 02/26/20 08:00 98 F 72 16 02/26/20 04:13 97.9 F 74 17 BP BP Pulse Ox Pulse Ox Pulse Ox 02/26/20 09:05 96 97 02/26/20 08:00 124/65 97 02/26/20 04:13 121/64 100 Admit Weight 123 lb 11.2 oz Weight 124 lb 9.6 oz - Physical Exam General: alert & oriented x3 HEENT: mucus membranes moist Cardiac: regular rate and rhythm, S1/S2 Lungs: decreased breath sounds Neuro: cranial nerve 2-12 intact Extremities: no edema - Labs Result Diagrams: 02/26/20 05:27 02/26/20 05:26 Troponin/CKMB CK-MB (CK-2) 1.7 ng/mL (0-6.6) 02/15/20 20:04 Troponin I 0.229 ng/mL (< 0.028) H 02/16/20 13:26 - Telemetry Sinus rhythms and dysrhythmias: sinus rhythm - Assessment/Plan Assessment/Plan: 1. 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 Amyloidosis - Per Dr Moreno at [facility], the pt is not good candidate for medical tx; Plan to tx to [facility] for urgent heart transplant 3. Hypotension - stable with dobutamine drip; off Levophed 4. Aflutter - converted back to SR on 02/21/2020; well controlled HR with Amiodarone taper (Amiodarone 200 mg BID since 02/24/2020) 5. CKD - improving. 6. UTI 7. Hx of CVA - on Plavix and ASA 8. mod MR 9. Lupus 10. COVID 19 positive MAR reviewed * Still waiting on a bed for transfer.
[2020-02-26 14:25] LABS: SARS-CoV-2 MS2 Positive; SARS-CoV-2 N Gene Positive; SARS-CoV-2 S Gene Positive; SARS-CoV-2 orf1ab Positive
--- NOTE | 2020-02-26 15:38 | SPC ---
Left upper extremity PICC placement fluoroscopic guided HISTORY: COVID pneumonia. FINDINGS: After explaining the procedure and answering all questions, the left upper extremity was pr epped and draped in usual sterile fashion. Sterile technique, buffered local anesthesia, sonographic guidance, and a 22-gauge needle were used t o carefully access the left brachial vein. Standard technique was used to place the tip of a 5 [place] dual lumen PICC so that the tip lies at the level of the superior vena cava. Catheter was flushed and secured externally. Patient tolerated the procedure well and was returned in unchanged condition. Fluoroscopy time 0 seconds. IMPRESSION : Left upper extremity PICC is ready for use.
--- NOTE | 2020-02-26 16:47 | PDOC.HOSPP ---
- Subjective Encounter Date: 02/26/20 Encounter Time: 12:00 Subjective: The patient has no complaints. SHe went to the bathroom and had no SOB or chest pain. SHe is ready to leave the hospital soon Still awaiting a bed. Patient is on dobutamine 5 mcg - Objective Vital Signs & Weight: Vital Signs (12 hours) Temp Pulse Pulse Pulse Resp BP BP 02/26/20 16:00 97.8 F 78 16 02/26/20 14:14 117/60 02/26/20 12:00 97.7 F 70 18 02/26/20 09:05 83 73 128/61 121/62 02/26/20 08:00 98 F 72 16 BP BP Pulse Ox Pulse Ox Pulse Ox 02/26/20 16:00 126/60 02/26/20 14:14 98 02/26/20 12:00 121/59 L 98 02/26/20 09:05 96 97 02/26/20 08:00 124/65 97 Weight Admit Weight 123 lb 11.2 oz Weight 124 lb 9.6 oz Most Recent Monitor Data Heart Rate from ECG 90 NIBP 127/95 NIBP BP-Mean 105 Respiration from ECG 16 SpO2 73 I&O: 02/25/20 02/26/20 02/27/20 06:59 06:59 06:59 Intake Total 635 1195.1 Output Total 2300 350 Balance -1665 845.1 Result Diagrams: 02/26/20 05:27 02/26/20 05:26 Hospitalist ROS - Medication Medications: Active Medications Generic Name Dose Route Start Last Admin Trade Name Freq PRN Reason Stop Dose Admin Al Hydroxide/Mg Hydroxide 30 ml 02/17/20 21:06 02/18/20 03:42 Maalox PO 30 ml Q4H PRN Administration Indigestion Amiodarone HCl 200 mg 02/24/20 21:00 02/26/20 07:46 Cordarone PO 200 mg BID PADMAJA Administration Aspirin 81 mg 02/16/20 09:00 02/26/20 07:45 Ecotrin PO 81 mg DAILY PADMAJA Administration Cholestyramine Resin 4 gm 02/18/20 22:00 02/26/20 09:43 Questran Light PO 4 gm 1000,2200 PADMAJA Administration Clopidogrel Bisulfate 75 mg 02/16/20 09:00 02/26/20 07:45 Plavix PO 75 mg DAILY PADMAJA Administration Dexamethasone 6 mg 02/22/20 09:00 02/26/20 07:44 Decadron PO 6 mg DAILY PADMAJA Administration Enoxaparin Sodium 30 mg 02/16/20 09:00 02/26/20 07:44 Lovenox SC 30 mg 0900 PADMAJA Administration Dobutamine HCl/Dextrose 500 mg 250 mls @ 8.88 mls/hr 02/24/20 11:46 02/26/20 09:43 / Device IVPB 250 mls INF PADMAJA Administration Protocol 5 MCG/KG/MIN Ondansetron HCl 4 mg 02/16/20 01:07 02/17/20 18:36 Zofran IVP 4 mg Q6H PRN Administration Nausea/Vomiting use 1st Pantoprazole Sodium 40 mg 02/16/20 09:00 02/26/20 07:45 Protonix PO 40 mg DAILY PADMAJA Administration Rosuvastatin Calcium 10 mg 02/17/20 21:00 02/25/20 20:11 Crestor PO 10 mg HS PADMAJA Administration Simethicone 80 mg 02/17/20 21:06 02/17/20 22:48 Mylicon Chewable PO 80 mg PCHS PRN Administration Gas Pain Sodium Chloride 10 ml 02/16/20 09:00 02/26/20 07:43 Flush - Normal Saline IVF 10 ml Q12HR PADMAJA Administration Spironolactone 25 mg 02/16/20 09:00 02/26/20 07:45 Aldactone PO 25 mg QAM PADMAJA Administration Spironolactone 50 mg 02/16/20 21:00 02/25/20 20:11 Aldactone PO 50 mg QPM PADMAJA Administration - Exam General Appearance: NAD, awake alert Eye: PERRL, anicteric sclera ENT: normocephalic atraumatic, no oropharyngeal lesions Neck: no JVD Heart: RRR, no murmur, no gallops, no rubs Respiratory: CTAB, no wheezes, no rales, no ronchi Gastrointestinal: soft, non-tender, non-distended, normal bowel sounds Extremities: no cyanosis, no clubbing, no edema Skin: normal turgor, no lesions, no rashes Neurological: cranial nerve grossly intact, normal sensation to touch, no focal deficits, no new deficit Hosp A/P - Plan This is 74 year old female with acute heart failure, also COVID + , has amylodiosis #Acute combined systolic/diastolic heart failure due to amyloidosis #Aflutter - she is still on dobutamine drip - continue oral amiodarone - continue spironolctone - pending transfer to [facility] for heart transplant, currently awaiting a bed Right lung pneumonia - possibly from COVID vs bacterial - received zosyn 02/15 - 02/18. Repeat X ray 02/20 shows improvement in right lung base - continue dexamethasone day 4 - blood culture, urine culture unremarkable -repeat COVID swab positive Hallucinations - CT brain shows no stroke - monitor conservatively Lupus - stable Dispo: pending bed
[2020-02-26] MEDS: Milrinone Lactate/D5W 20 MG in Premix Bag 1 BAG IVPB SCH (17:00)
[2020-02-26] MEDS: Rosuvastatin 10 MG TAB PO SCH (20:48)
[2020-02-27 05:10] LABS: Anion Gap 11 mmol/L (10-20); BUN (Urea Nitrogen) 17 mg/dL (9.8-20.1); Calc. Creatinine Clearance 42 mL/min (70-130); Calcium 9.6 mg/dL (7.8-10.44); Carbon Dioxide 23 mmol/L (23-31); Chloride 104 mmol/L (98-107); Estimated GFR-MDRD 61; Glucose 119 mg/dL (83-110); Magnesium 1.9 mg/dL (1.6-2.6); Potassium 4.8 mmol/L (3.5-5.1); Sodium 133 mmol/L (136-145)
[2020-02-27 05:11] LABS: Band 7 % (5-11); Hemoglobin 10.9 g/dL (12.0-16.0); Hypochromia SLIGHT = 6-15 cells (100X) (0-5/hpf); Lymphocytes 2 % (21-51); MDiff Complete? YES; Mean Corpuscular HGB CONC 32.6 g/dL (32.0-36.0); Mean Corpuscular Hemoglobin 25.9 pg (27.0-31.0); Mean Corpuscular Volume 79.4 fL (78.0-98.0); Mean Platelet Volume 11.4 fL (7.4-10.4); Monocytes 3 % (0-10); Neutrophil 88 % (42-75); Platelet Count 137 thou/uL (130-400); Platelet Morphology Comment Appears Adequate; Red Blood Cell (RBC) Count 4.22 mill/uL (4.20-5.40); White Blood Cell (WBC) Count 9.5 thou/uL (4.8-10.8)
--- NOTE | 2020-02-27 06:57 | PRG ---
DATE OF SERVICE: 02/26/2020 SERVICE: Advanced Heart Failure Cardiology Consulting Service. SUBJECTIVE: Ms. Magdaleno had a variable day. Her self diuresis has slowed down considerably. There is no urine output recorded. She said after feeling good the day before things have not gone as well. Even though she is breathing easy, she thought her abdomen swelling has increased. However, there are no other complaints. REVIEW OF SYSTEMS: GENERAL: Alert. There is no fever, chills, or productive cough. HEENT: There is no change in vision, hearing, or swallowing. PULMONARY: She has not complained of cough or severe shortness of breath. CARDIAC: There are no chest pain, palpitations, or syncope. GI: There is no complaint of nausea or vomiting. : She is on a Berger catheter. MUSCULOSKELETAL: There are no joint pains or musculoskeletal pains. INTEGUMENT: There is no skin breakdown. NEUROLOGIC: There are no new focal deficits or weaknesses. MEDICATIONS: Her medications include; amiodarone 200 mg twice a day, aspirin 81 mg daily, cholestyramine 4 grams daily, Plavix 75 mg daily, dexamethasone 6 mg daily, dobutamine currently at 5 mcg/kg/min, rosuvastatin 10 mg daily, spironolactone 25 mg every morning and 50 mg every evening. PHYSICAL EXAMINATION: Her telemetry was reviewed. She is in sinus rhythm. There are occasional PVCs. There are known concerning arrhythmias VITAL SINGS: Her systolic pressure runs between 121 to 124. The most recent vitals with my exam this morning were, heart rate 74 and blood pressure 121/64. GENERAL: She is alert and conversational. She walked with physical therapist about 60 feet and afterwards she felt tired and needed to sit down. She is alert, conversational, and sitting comfortably in bed. HEENT: Shows EOMI. Oropharynx is benign with moist mucosa. NECK: Her JVP is still elevated about 14 cm. PULMONARY: There is good air movement bilaterally. However, there is decreased breath sounds at the left base. CARDIAC: Regular rate and rhythm with 3/6 holosystolic murmur at the apex with radiation to the left axilla. ABDOMEN: Soft and nontender, but it is distended, likely to be ascites. EXTREMITIES: There is slight pitting edema, bilateral feet, but not much more than that. LABORATORY DATA: Sodium 133, decreased from 136. BUN 15 and creatinine 1.09. Her total bilirubin did decrease slightly from 2.8 to 2.6. Her BNP did decrease some from 1235 down to 1024. Her CBC showed white cell count 11.5, hemoglobin of 11.9, and platelets of 147. ASSESSMENT: 74-year-old lady is doing surprisingly well with COVID-19 infection and acute on chronic heart failure with reduced ejection fraction. 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 She has elevated white cell count that has been going up for the last 3 days. Her central line has been in for over a week now. Even though she is not febrile, we need to remove this and look for infection. She is also volume overloaded. Her self diuresis has slowed. She continues to be volume overloaded at this point, we will need to give her active diuresis at least once. With her sustained good systolic blood pressure, this will be a good time to try to make a slow switch from dobutamine to Milrinone switch. With Milrinone on board, she can survive for much longer period of time. It also supports additional beta blockers for her heart failure. So, in this hospital setting, it could be a good try. Milrinone also has much longer survival than dobutamine and it can be used for outpatient. It may be her only option if [facility] does not come through. RECOMMENDATIONS: 1. Please do blood culture. 2. Please do urine culture. 3. Please do sputum culture. 4. Please place PICC. 5. Please pull the central line once the PICC is placed. 6. Please give Lasix 40 mg IV one dose. 7. Please carefully document the I's and O's. 8. Please start Milrinone at 0.125 mcg/kg/minute at 5:00 p.m. today. We will follow overnight and make a slow transition from dobutamine to Milrinone tomorrow. 9. Please continue the amiodarone to keep her in sinus rhythm. 10. We will continue to contact [facility] about her status. Hopefully, she will be able to be transferred over there soon. It has been a pleasure taking care of Ms. Magdaleno. If you have any questions, please give me a call. Job ID: [id number] [facility]
[2020-02-27] MEDS: Clopidogrel Bisulfate 75 MG TAB PO SCH (08:27)
[2020-02-27] MEDS: Spironolactone 25 MG TAB PO SCH ×2 (08:28→21:25)
[2020-02-27] MEDS: Enoxaparin Sodium 30 MG/0.3 ML SYRINGE SC SCH (08:28)
[2020-02-27] MEDS: Dexamethasone 4 MG TAB PO SCH (08:28)
[2020-02-27] MEDS: Amiodarone 200 MG TAB PO SCH ×2 (08:28→21:25)
[2020-02-27] MEDS: Aspirin 81 mg Enteric Coated Tablet PO SCH (08:28)
[2020-02-27] MEDS: Cholestyramine/Aspartame 4 gm Packet PO SCH ×2 (09:37→21:24)
[2020-02-27] MEDS: DOBUTamine 500 mg/250 ml 500 MG in Premix Bag 1 BAG IVPB SCH ×2 (12:06→19:07)
[2020-02-27] MEDS ORDERED: Communication Order-Pharmacy FS PRN (13:46)
--- NOTE | 2020-02-27 14:05 | PRG ---
DATE OF SERVICE: 02/27/2020 This is from [facility] Failure Consult Cardiology. SUBJECTIVE: Ms. Magdaleno had a good day. She tolerated IV diuretics yesterday in addition to spironolactone. She had a net negative 2.1 L. She said that she can feel her abdomen getting smaller. She feels good with that; however, she said that since after breakfast, she feels like the edema has started to recollect in her abdomen again. She says she is breathing easy and she felt good thus far. Milrinone was also started on a slow transition; however, she was able to sustain her systolic blood pressure over 100 to 110 the whole time, so there were no difficulties with it. REVIEW OF SYSTEMS: GENERAL: There are no fevers, chills, or productive cough. HEENT: There is no change in vision, hearing, or swallowing. PULMONARY: Please see HPI. CARDIAC: There is no chest pain, palpitations, or syncope. GASTROINTESTINAL: There is no nausea, vomiting, or diarrhea. The diarrhea has completely ceased. GENITOURINARY: She was incontinent and she has a Berger catheter in now. MUSCULOSKELETAL: She does not complain of joint pains or muscle pains. INTEGUMENT: She does not complain of new skin breakdown. NEUROLOGIC: There are no new focal deficits or weaknesses. PSYCHIATRIC: She is not depressed and patiently waiting for transfer. MEDICATIONS: Her cardiac active medications include, 1. Amiodarone 200 mg b.i.d. 2. Aspirin 81 mg daily. 3. Plavix 75 mg daily. 4. Dexamethasone for her COVID-19 6 mg daily. 5. Dobutamine currently at 5 mcg/kg/minute. 6. Milrinone currently at 0.125 mcg/kg/minute. 7. Enoxaparin 30 mg subcutaneous daily for DVT prophylaxis. 8. Rosuvastatin 10 mg p.o. at bedtime. 9. Spironolactone 25 mg in the morning and 50 mg in the afternoon. OBJECTIVE: TELEMETRY: She is in sinus rhythm. VITAL SIGNS: Her heart rate is about 71 and blood pressure 124/64. Her O2 saturations are between 95% to 99% on room air. GENERAL: She is alert and conversational, sitting comfortably in bed. She is not short of breath, breathing easy, this is the best I have seen her. She also appears more energetic today than yesterday. HEENT: Show EOMI with oropharynx benign with moist mucosa. NECK: Her JVP is still elevated at about 13 cm. PULMONARY: There is good air movement bilaterally. I did not hear crackles bilaterally. CARDIAC: Regular rate and rhythm with normal S1 and S2. There is about 3/6 holosystolic murmur at the apex with radiation to the left axilla. There is right ventricular heave seen; however, there are no gallops or rubs. ABDOMEN: Soft, nontender, and less distended yesterday. The volume has gone small. EXTREMITIES: Lower extremities, she has some slight pitting edema that does radiate about her feet close to her ankles, but not above that. LABORATORY VALUES: Today are white cell count 9.5, hemoglobin 10.9, platelet 137. Her chemistry shows sodium 133, potassium 4.8, bicarb at 23, BUN at 17, and creatinine 1.07. Her BNP has decreased some down to 986. Her I's and O's are 570 in and 2700 out with a net negative of 2130 mL. ASSESSMENT: 74-year-old lady is doing rather well with COVID- 19 infection. 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 At this point, I will make attempt to switch from dobutamine to milrinone. The rationale is that it will be less arrhythmic for the heart. It can be sustained for a long time and use in the outpatient as needed. One can also use milrinone in conjunction with beta- laly. Finally, milrinone has a better survival rate than dobutamine. Please see the following for my recommendations. RECOMMENDATIONS: 1. Increase milrinone to 0.25 mcg/kg/minute. 2. Decrease dobutamine to 4 mcg/kg/minute. 3. After 2 hours, if systolic blood pressure remains above 100 mmHg, then please decrease dobutamine down to 2.5 mcg/kg/minute. We will likely leave this overnight and check how she tolerates it throughout the night and tomorrow, then we can make the final switch where dobutamine can be titrated off and milrinone can be titrated to 0.375 mcg/kg/minute. 4. I will inform the switch to [facility] while we wait for the transfer. 5. The blood culture is negative; however, she grew gram-negative rods in her urine, so we will need to treat this, perhaps even consider pulling the Berger catheter. It has been a pleasure taking care of Ms. Magdaleno. If you have any questions, please give me a call. Job ID: [id number] MTDD
--- NOTE | 2020-02-27 16:26 | PDOC.HOSPP ---
- Subjective Encounter Date: 02/27/20 Encounter Time: 12:00 Subjective: The patient denies complaints of SOB or cough. No chest pain. She denies urinary symptoms. She is anxious to leave the hospital Dobutamine drip was decreased to 4 mcg/kg/min toda - Objective Vital Signs & Weight: Vital Signs (12 hours) Temp Pulse Resp BP BP Pulse Ox 02/27/20 11:17 97.6 F 71 20 124/64 95 02/27/20 08:45 98.2 F 69 20 124/61 99 02/27/20 05:00 98.6 F 72 16 112/56 L 99 Weight Admit Weight 123 lb 11.2 oz Weight 119 lb 12.8 oz Most Recent Monitor Data Heart Rate from ECG 90 NIBP 127/95 NIBP BP-Mean 105 Respiration from ECG 16 SpO2 73 I&O: 02/26/20 02/27/20 02/28/20 06:59 06:59 06:59 Intake Total 1195.1 570 Output Total 350 2700 Balance 845.1 -2130 Result Diagrams: 02/27/20 04:28 02/27/20 04:28 Hospitalist ROS - Review of Systems Constitutional: denies: fever, chills - Medication Medications: Active Medications Generic Name Dose Route Start Last Admin Trade Name Freq PRN Reason Stop Dose Admin Al Hydroxide/Mg Hydroxide 30 ml 02/17/20 21:06 02/18/20 03:42 Maalox PO 30 ml Q4H PRN Administration Indigestion Amiodarone HCl 200 mg 02/24/20 21:00 02/27/20 08:28 Cordarone PO 200 mg BID PADMAJA Administration Aspirin 81 mg 02/16/20 09:00 02/27/20 08:28 Ecotrin PO 81 mg DAILY PADMAJA Administration Cholestyramine Resin 4 gm 02/18/20 22:00 02/27/20 09:37 Questran Light PO 4 gm 1000,2200 PADMAJA Administration Clopidogrel Bisulfate 75 mg 02/16/20 09:00 02/27/20 08:27 Plavix PO 75 mg DAILY PADMAJA Administration Dexamethasone 6 mg 02/22/20 09:00 02/27/20 08:28 Decadron PO 6 mg DAILY PADMAJA Administration Enoxaparin Sodium 30 mg 02/16/20 09:00 02/27/20 08:28 Lovenox SC 30 mg 0900 PADMAJA Administration Dobutamine HCl/Dextrose 500 mg 250 mls @ 4.44 mls/hr 02/24/20 11:46 02/26/20 09:43 / Device IVPB 250 mls INF PADMAJA Administration Protocol 2.5 MCG/KG/MIN Milrinone Lactate/Dextrose 20 100 mls @ 4.23 mls/hr 02/26/20 17:00 02/26/20 17:00 mg/ Device IVPB 100 mls INF PADMAJA Administration 0.25 MCG/KG/MIN Ondansetron HCl 4 mg 02/16/20 01:07 02/17/20 18:36 Zofran IVP 4 mg Q6H PRN Administration Nausea/Vomiting use 1st Pantoprazole Sodium 40 mg 02/16/20 09:00 02/27/20 08:27 Protonix PO 40 mg DAILY PADMAJA Administration Rosuvastatin Calcium 10 mg 02/17/20 21:00 02/26/20 20:48 Crestor PO 10 mg HS PADMAJA Administration Simethicone 80 mg 02/17/20 21:06 02/17/20 22:48 Mylicon Chewable PO 80 mg PCHS PRN Administration Gas Pain Sodium Chloride 10 ml 02/16/20 09:00 02/27/20 09:30 Flush - Normal Saline IVF Not Given Q12HR PADMAJA Spironolactone 25 mg 02/16/20 09:00 02/27/20 08:28 Aldactone PO 25 mg QAM PADMAJA Administration Spironolactone 50 mg 02/16/20 21:00 02/26/20 20:51 Aldactone PO 50 mg QPM PADMAJA Administration - Exam General Appearance: NAD, awake alert Eye: PERRL, anicteric sclera ENT: normocephalic atraumatic, no oropharyngeal lesions Neck: supple, no JVD Heart: RRR, no murmur, no gallops, no rubs Respiratory: CTAB, no wheezes, no rales, no ronchi Gastrointestinal: soft, non-tender, non-distended, normal bowel sounds, no palpable masses, no hepatomegaly, no splenomegaly, no bruit Extremities: no cyanosis, no clubbing, no edema Skin: normal turgor, no lesions, no rashes Neurological: cranial nerve grossly intact, normal sensation to touch, no focal deficits, no new deficit Musculoskeletal: normal tone, normal strength, no muscle wasting Psychiatric: normal affect, normal behavior, A&O x 3, oriented to person Hosp A/P - Plan This is 74 year old female with acute heart failure, also COVID + , 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 Repeat X ray 02/20 shows improvement in right lung base - s/p 5 days of dexamethasone, discontinue today -repeat COVID swab 02/24 positive UTI - urine culture growing gram negative rods 02/25. - will restart zosyn 02/26 Hallucinations - CT brain shows no stroke - monitor conservatively Lupus - stable Dispo: pending bed at [facility]
[2020-02-27] MEDS: Piperacillin/Tazobactam 3.375 GM in Sodium Chloride 0.9% 100 ML IVPB SCH ×2 (17:30→23:49)
[2020-02-27] MEDS: Rosuvastatin 10 MG TAB PO SCH (21:24)
[2020-02-27] MEDS: Milrinone Lactate/D5W 20 MG in Premix Bag 1 BAG IVPB SCH (21:56)
[2020-02-28] MEDS ORDERED: Milrinone Lactate/D5W 20 MG in Premix Bag 1 BAG IVPB SCH (01:45)
[2020-02-28] MEDS ORDERED: DOBUTamine 500 mg/250 ml 500 MG in Premix Bag 1 BAG IVPB SCH (01:45)
[2020-02-28] MEDS ORDERED: Magnesium 2 GM/50 ML 2 GM in Premix Bag 1 BAG IVPB SCH (04:45)
[2020-02-28] MEDS: Piperacillin/Tazobactam 3.375 GM in Sodium Chloride 0.9% 100 ML IVPB SCH ×4 (04:46→23:54)
[2020-02-28 05:15] LABS: #Basophils 0.1 thou/uL (0.0-0.2); #Lymphocytes 0.2 thou/uL (1.20-3.40); #Monocytes 0.4 thou/uL (0.11-0.59); #Neutrophils 9.2 thou/uL (1.40-6.50); %Basophils 0.5 % (0.0-1.0); %Eosinophils 0.1 % (0.0-10.0); %Lymphocytes 1.8 % (21.0-51.0); %Monocytes 3.6 % (0.0-10.0); %Neutrophils 93.9 % (42.0-75.0); Hemoglobin 10.9 g/dL (12.0-16.0); Mean Corpuscular HGB CONC 32.4 g/dL (32.0-36.0); Mean Corpuscular Hemoglobin 25.7 pg (27.0-31.0); Mean Corpuscular Volume 79.2 fL (78.0-98.0); Mean Platelet Volume 11.5 fL (7.4-10.4); Platelet Count 141 thou/uL (130-400); RBC Distribution Width 20.6 % (11.5-14.5); Red Blood Cell (RBC) Count 4.25 mill/uL (4.20-5.40); White Blood Cell (WBC) Count 9.8 thou/uL (4.8-10.8)
[2020-02-28 05:32] LABS: ALT (SGPT) 39 U/L (8-55); AST (SGOT) 44 U/L (5-34); Albumin 3.2 g/dL (3.4-4.8); Alkaline Phosphatase 24 U/L (40-110); Anion Gap 12 mmol/L (10-20); BUN (Urea Nitrogen) 17 mg/dL (9.8-20.1); Bilirubin, Total 2.7 mg/dL (0.2-1.2); Calc. Creatinine Clearance 49 mL/min (70-130); Calcium 9.5 mg/dL (7.8-10.44); Carbon Dioxide 23 mmol/L (23-31); Chloride 104 mmol/L (98-107); Estimated GFR-MDRD 74; Globulin 2.6 g/dL (2.4-3.5); Glucose 113 mg/dL (83-110); Magnesium 1.9 mg/dL (1.6-2.6); Potassium 4.7 mmol/L (3.5-5.1); Protein, Total 5.8 g/dL (6.0-8.3); Sodium 134 mmol/L (136-145)
[2020-02-28] MEDS: Enoxaparin Sodium 30 MG/0.3 ML SYRINGE SC SCH (08:20)
[2020-02-28] MEDS: Amiodarone 200 MG TAB PO SCH ×2 (08:20→21:02)
[2020-02-28] MEDS: Spironolactone 25 MG TAB PO SCH ×2 (08:20→21:01)
[2020-02-28] MEDS: Aspirin 81 mg Enteric Coated Tablet PO SCH (08:20)
[2020-02-28] MEDS: Clopidogrel Bisulfate 75 MG TAB PO SCH (08:20)
[2020-02-28] MEDS: Acetaminophen 325 MG TAB PO PRN ×2 (08:34→21:11)
[2020-02-28] MEDS ORDERED: Magnesium Oxide 400 MG TAB PO SCH ×2 (10:00→21:00)
[2020-02-28] MEDS ORDERED: Furosemide 20 MG/2 ML VIAL SLOW IVP SCH (10:00)
--- NOTE | 2020-02-28 10:44 | PRG ---
DATE OF SERVICE: 02/28/2020 SUBJECTIVE: Ms. Magdaleno had a good day. She was able to breathe easily and stay pretty much symptom free. She was able to be switched from dobutamine to milrinone. The switch took place over the period of about 24 hours. She changed from dobutamine at 5 mcg/kg/minute to milrinone 0.375 mcg/kg/minute and holding her systolic blood pressure steady between 100 to 120. She denies any fever or productive cough. She generally feels no difference between milrinone and dobutamine. However, she did say that she feels much, much better in comparison to before admission. REVIEW OF SYSTEMS: GENERAL: There is no fever, chills, or productive cough. HEENT: There is no change in vision, hearing, or swallowing. PULMONARY: She says she is breathing easy. CARDIAC: There is no palpitations, chest pain, or syncope. GI: There is no nausea, vomiting, or diarrhea. : She was incontinent a while back. That is why the Berger catheter was inserted. However, she has urinary tract infection. She is being treated with Zosyn right now per the antibiotics sensitivity profile. MUSCULOSKELETAL: There is no complaint of joint or muscle pains. INTEGUMENT: There is no skin breakdown. NEUROLOGIC: There are no complaints of new focal deficits or weaknesses. MEDICATIONS: Her cardiac and current disease medications include 1. Amiodarone 200 mg twice a day. 2. Aspirin 81 mg daily. 3. Cholestyramine 4 g daily. 4. Enoxaparin 30 mg subcu daily. 5. Clopidogrel, which is Plavix, 75 mg daily. 6. Milrinone currently at 0.375 mcg/kg/minute. 7. She is on Zosyn 3.375 g q.6 hours. 8. Rosuvastatin 10 mg each night. 9. Spironolactone 25 mg a.m. and also 50 mg p.m. Telemetry was reviewed. She did have some ectopy overnight. There were frequent PVCs. Magnesium was slightly low at that time, and she received magnesium sulfate 2 g and that quietened down the ectopy. Currently she is in sinus rhythm. PHYSICAL EXAMINATION: VITAL SIGNS: Current, heart rate 70, blood pressure 110/60. GENERAL: She is alert and conversational, relaxing easily while climbing in bed. She is not short of breath. HEENT: Show EOMI. Oropharynx is benign with moist mucosa. NECK: Her JVP is still elevated about 13 cm. LUNGS: She has good air movement bilaterally, seem to be clear to auscultation bilaterally. Also, there is some diminished breath sounds at bilateral bases that seem to be chronic. CARDIAC: Regular rate and rhythm. Normal S1 and S2. There is 2/6 holosystolic murmur at the apex with radiation to left axilla, there is easily perceptible right ventricular heave. ABDOMEN: Soft, nontender, little more distended. EXTREMITIES: Lower extremities are generally without edema, but slight pitting at the feet. LABORATORY DATA: White cell count has decreased down to 9.8, hemoglobin 10.9, platelets at 141. Her chemistries are sodium improved to 134, potassium 4.7, bicarbonate 23, BUN 17, creatinine 0.91. Her total bilirubin still bit elevated at 2.7. ASSESSMENT: 74-year-old female is doing better than expected to be on a COVID-19 infection. She also has acute on chronic heart failure with reduced ejection fraction due to amyloidosis. HFrEF has combined systolic and diastolic dysfunction. Fortunately, we were able to transition from dobutamine to milrinone. This will have less arrhythmic effect and it has improved survival over dobutamine. Right now, we are waiting on a transfer to [facility] for more advanced treatment for amyloidosis of the heart and possible evaluation for potential heart transplant if this comes about. They will be able to provide advanced heart failure care that was not possible at this institution. She remains a bit volume overloaded especially with new antibiotics, so we will need to mildly increase her diuresis. Please see the following for my recommendations. RECOMMENDATION: 1. Continue milrinone at 0.375 mcg/kg/minute. We will see how it goes for one day. Hopefully, this dosing does not need to be increased. If it does, we will increase it tomorrow. 2. Lasix 20 mg IV one dose. This is to keep up with antibiotics fluid load. This may be needed daily in addition to her spironolactone 25 mg in the morning and 50 mg in the afternoon. 3. Please provide magnesium oxide 400 mg b.i.d. 4. I will contact [facility] again. Please do contact [facility] to continue the process for transfer. It has been a pleasure taking care of Kacey Es Magdaleno. If you have any questions, please give me a call. Job ID: [id number] [facility]PITALRad[facility]
--- NOTE | 2020-02-28 14:04 | PDOC.HOSPP ---
- Subjective Encounter Date: 02/28/20 Subjective: The patient has no new complaints today. She appears to be sitting comfortably in her bed without respiratory distress. - Objective Vital Signs & Weight: Vital Signs (12 hours) Temp Pulse Resp BP BP Pulse Ox 02/28/20 11:30 98.3 F 73 16 93/53 L 95 02/28/20 08:30 98.7 F 72 14 108/57 L 93 L 02/28/20 05:00 98.1 F 70 18 111/56 L 97 Weight Admit Weight 123 lb 11.2 oz Weight 123 lb 0.287 oz Most Recent Monitor Data Heart Rate from ECG 90 NIBP 127/95 NIBP BP-Mean 105 Respiration from ECG 16 SpO2 73 I&O: 02/27/20 02/28/20 02/29/20 06:59 06:59 06:59 Intake Total 570 965 Output Total 2700 1554 Balance -2130 -589 Result Diagrams: 02/28/20 04:50 02/28/20 04:50 Hospitalist ROS - Medication Medications: Active Medications Generic Name Dose Route Start Last Admin Trade Name Freq PRN Reason Stop Dose Admin Acetaminophen 650 mg 02/16/20 01:07 02/28/20 08:34 Tylenol PO 650 mg Q4H PRN Administration Headache/Fever/Mild Pain (1-3) Al Hydroxide/Mg Hydroxide 30 ml 02/17/20 21:06 02/18/20 03:42 Maalox PO 30 ml Q4H PRN Administration Indigestion Amiodarone HCl 200 mg 02/24/20 21:00 02/28/20 08:20 Cordarone PO 200 mg BID PADMAJA Administration Aspirin 81 mg 02/16/20 09:00 02/28/20 08:20 Ecotrin PO 81 mg DAILY PADMAJA Administration Cholestyramine Resin 4 gm 02/18/20 22:00 02/27/20 21:24 Questran Light PO 4 gm 1000,2200 PADMAJA Administration Clopidogrel Bisulfate 75 mg 02/16/20 09:00 02/28/20 08:20 Plavix PO 75 mg DAILY PADMAJA Administration Enoxaparin Sodium 30 mg 02/16/20 09:00 02/28/20 08:20 Lovenox SC 30 mg 0900 PADMAJA Administration Piperacillin Sod/Tazobactam 100 mls @ 200 mls/hr 02/27/20 18:00 02/28/20 11: 11 Sod 3.375 gm/ Sodium Chloride IVPB 100 mls Q6HR PADMAJA Administration Ondansetron HCl 4 mg 02/16/20 01:07 02/17/20 18:36 Zofran IVP 4 mg Q6H PRN Administration Nausea/Vomiting use 1st Pantoprazole Sodium 40 mg 02/16/20 09:00 02/28/20 08:20 Protonix PO 40 mg DAILY PADMAJA Administration Rosuvastatin Calcium 10 mg 02/17/20 21:00 02/27/20 21:24 Crestor PO 10 mg HS PADMAJA Administration Simethicone 80 mg 02/17/20 21:06 02/17/20 22:48 Mylicon Chewable PO 80 mg PCHS PRN Administration Gas Pain Sodium Chloride 10 ml 02/16/20 09:00 02/28/20 08:21 Flush - Normal Saline IVF 10 ml Q12HR PADMAJA Administration Spironolactone 25 mg 02/16/20 09:00 02/28/20 08:20 Aldactone PO 25 mg QAM PADMAJA Administration Spironolactone 50 mg 02/16/20 21:00 02/27/20 21:25 Aldactone PO 50 mg QPM PADMAJA Administration - Exam General Appearance: awake alert ENT: normocephalic atraumatic Neck: supple Heart: RRR Respiratory: CTAB, no tachypnea Neurological: cranial nerve grossly intact, no focal deficits Hosp A/P - Plan #Acute combined systolic/diastolic heart failure due to amyloidosis #Aflutter -Dobutamine drip has been weaned off. The patient remains on milrinone and the dose is being titrated by cardiology. - continue oral amiodarone - continue spironolctone. Cardiology added Lasix today to counteract the extra volume from IV antibiotics. - pending transfer to [facility] for heart transplant, currently awaiting a bed. Right lung pneumonia - possibly from COVID vs bacterial - received zosyn 02/15 - 02/18. Repeat X ray 02/20 shows improvement in right lung base - s/p 5 days of dexamethasone, discontinue today -repeat COVID swab 02/24 positive UTI -Urine culture showing growth of both Klebsiella pneumoniae and Enterobacter species. -Currently on Zosyn day 2. Hallucinations - CT brain shows no stroke - monitor conservatively Lupus - stable Dispo: pending bed at [facility]
[2020-02-28] MEDS: Cholestyramine/Aspartame 4 gm Packet PO SCH ×2 (14:23→21:02)
--- NOTE | 2020-02-28 15:36 | PDOC.CPN ---
- Subjective Date: 02/27/20 Time: 14:00 Interval history: <Late entry for on 02/27/2020> The pt seen and examined. No overnight events. No cardiac complaints. - Objective Allergies/Adverse Reactions: Allergies Allergy/AdvReac Type Severity Reaction Status Date / Time cefazolin [From [facility]] Allergy Unknown Rash Verified 02/15/20 23:52 Visit Medications: Current Medications Acetaminophen (Tylenol) 650 mg PO Q4H PRN PRN Reason: Headache/Fever/Mild Pain (1-3) Last Admin: 02/28/20 08:34 Dose: 650 mg Al Hydroxide/Mg Hydroxide (Maalox) 30 ml PO Q4H PRN PRN Reason: Indigestion Last Admin: 02/18/20 03:42 Dose: 30 ml Albuterol Sulfate (Proventil Hfa) 2 puff INH Q2H PRN PRN Reason: SOB &/or Wheezing Amiodarone HCl (Cordarone) 200 mg PO BID [facility] Last Admin: 02/28/20 08:20 Dose: 200 mg Aspirin (Ecotrin) 81 mg PO DAILY [facility] Last Admin: 02/28/20 08:20 Dose: 81 mg Bisacodyl (Dulcolax) 10 mg PO DAILYPRN PRN PRN Reason: Constipation Bisacodyl (Dulcolax) 10 mg LA DAILYPRN PRN PRN Reason: Constipation Cholestyramine Resin (Questran Light) 4 gm PO 1000,2200 [facility] Last Admin: 02/28/20 14:23 Dose: Not Given Clopidogrel Bisulfate (Plavix) 75 mg PO DAILY [facility] Last Admin: 02/28/20 08:20 Dose: 75 mg Enoxaparin Sodium (Lovenox) 30 mg SC 0900 [facility] Last Admin: 02/28/20 08:20 Dose: 30 mg Guaifenesin/Dextromethorphan (Robitussin Dm) 15 ml PO Q4H PRN PRN Reason: Cough Promethazine HCl 12.5 mg/ (Sodium Chloride) 50.5 mls @ 202 mls/hr IVPB Q6H PRN PRN Reason: Nausea/vomiting use second Piperacillin Sod/Tazobactam (Sod 3.375 gm/ Sodium Chloride) 100 mls @ 200 mls/ hr IVPB Q6HR [facility] Last Admin: 02/28/20 11:11 Dose: 100 mls Milrinone Lactate/Dextrose 20 (mg/ Device) 100 mls @ 6.27 mls/hr IVPB INF [facility] Last Admin: 02/28/20 14:59 Dose: 100 mls Magnesium Oxide (Magnesium Oxide) 400 mg PO BID [facility] Ondansetron HCl (Zofran) 4 mg IVP Q6H PRN PRN Reason: Nausea/Vomiting use 1st Last Admin: 02/17/20 18:36 Dose: 4 mg Pantoprazole Sodium (Protonix) 40 mg PO DAILY [facility] Last Admin: 02/28/20 08:20 Dose: 40 mg Rosuvastatin Calcium (Crestor) 10 mg PO HS [facility] Last Admin: 02/27/20 21:24 Dose: 10 mg Senna/Docusate Sodium (Senokot S) 2 tab PO BID PRN PRN Reason: Constipation Last Admin: 02/28/20 14:59 Dose: 2 tab Simethicone (Mylicon Chewable) 80 mg PO PCHS PRN PRN Reason: Gas Pain Last Admin: 02/17/20 22:48 Dose: 80 mg Sodium Chloride (Flush - Normal Saline) 10 ml IVF Q12HR [facility] Last Admin: 02/28/20 08:21 Dose: 10 ml Sodium Chloride (Flush - Normal Saline) 10 ml IVF PRN PRN PRN Reason: Saline Flush Spironolactone (Aldactone) 25 mg PO QAM [facility] Last Admin: 02/28/20 08:20 Dose: 25 mg Spironolactone (Aldactone) 50 mg PO QPM [facility] Last Admin: 02/27/20 21:25 Dose: 50 mg Vital Signs & Weight: Vital Signs Temp Pulse Resp BP BP Pulse Ox 02/28/20 11:30 98.3 F 73 16 93/53 L 95 02/28/20 08:30 98.7 F 72 14 108/57 L 93 L 02/28/20 05:00 98.1 F 70 18 111/56 L 97 Admit Weight 123 lb 11.2 oz Weight 123 lb 0.287 oz - Physical Exam General: alert & oriented x3 HEENT: mucus membranes moist Neck: supple neck Cardiac: regular rate and rhythm, S1/S2 Lungs: decreased breath sounds Extremities: no edema - Labs Result Diagrams: 02/28/20 04:50 02/28/20 04:50 Troponin/CKMB CK-MB (CK-2) 1.7 ng/mL (0-6.6) 02/15/20 20:04 Troponin I 0.229 ng/mL (< 0.028) H 02/16/20 13:26 - Telemetry Sinus rhythms and dysrhythmias: sinus rhythm - Assessment/Plan Assessment/Plan: 1. Acute on chronic combined HF 2/2 Amyloidosis - Lower BNP today; On Milrinone drip and Dobutamine drip which will be wean off; On Spironolactone; will resume bblocker once her VS is more stable; not on DAVID/ARB due to hx of CKD and hypotension 2. Amyloidosis - Per Dr Moreno at [facility], the pt is not good candidate for medical tx; Plan to tx to [facility] for urgent heart transplant 3. Hypotension - stable with dobutamine drip; off Levophed 4. Aflutter - converted back to SR on 02/21/2020; well controlled HR with Amiodarone taper (Amiodarone 200 mg BID since 02/24/2020) 5. CKD - improving. 6. UTI - will defer to PCP 7. Hx of CVA - on Plavix and ASA 8. mod MR 9. Lupus 10. COVID 19 positive MAR reviewed * Still waiting on a bed for transfer.
--- NOTE | 2020-02-28 15:38 | PDOC.CPN ---
- Subjective Date: 02/28/20 Time: 15:37 Interval history: The pt seen and examined. No overnight events. No cardiac complaints. - Objective Allergies/Adverse Reactions: Allergies Allergy/AdvReac Type Severity Reaction Status Date / Time cefazolin [From [facility]] Allergy Unknown Rash Verified 02/15/20 23:52 Visit Medications: Current Medications Acetaminophen (Tylenol) 650 mg PO Q4H PRN PRN Reason: Headache/Fever/Mild Pain (1-3) Last Admin: 02/28/20 08:34 Dose: 650 mg Al Hydroxide/Mg Hydroxide (Maalox) 30 ml PO Q4H PRN PRN Reason: Indigestion Last Admin: 02/18/20 03:42 Dose: 30 ml Albuterol Sulfate (Proventil Hfa) 2 puff INH Q2H PRN PRN Reason: SOB &/or Wheezing Amiodarone HCl (Cordarone) 200 mg PO BID [facility] Last Admin: 02/28/20 08:20 Dose: 200 mg Aspirin (Ecotrin) 81 mg PO DAILY [facility] Last Admin: 02/28/20 08:20 Dose: 81 mg Bisacodyl (Dulcolax) 10 mg PO DAILYPRN PRN PRN Reason: Constipation Bisacodyl (Dulcolax) 10 mg CO DAILYPRN PRN PRN Reason: Constipation Cholestyramine Resin (Questran Light) 4 gm PO 1000,2200 [facility] Last Admin: 02/28/20 14:23 Dose: Not Given Clopidogrel Bisulfate (Plavix) 75 mg PO DAILY [facility] Last Admin: 02/28/20 08:20 Dose: 75 mg Enoxaparin Sodium (Lovenox) 30 mg SC 0900 [facility] Last Admin: 02/28/20 08:20 Dose: 30 mg Guaifenesin/Dextromethorphan (Robitussin Dm) 15 ml PO Q4H PRN PRN Reason: Cough Promethazine HCl 12.5 mg/ (Sodium Chloride) 50.5 mls @ 202 mls/hr IVPB Q6H PRN PRN Reason: Nausea/vomiting use second Piperacillin Sod/Tazobactam (Sod 3.375 gm/ Sodium Chloride) 100 mls @ 200 mls/ hr IVPB Q6HR [facility] Last Admin: 02/28/20 11:11 Dose: 100 mls Milrinone Lactate/Dextrose 20 (mg/ Device) 100 mls @ 6.27 mls/hr IVPB INF [facility] Last Admin: 02/28/20 14:59 Dose: 100 mls Magnesium Oxide (Magnesium Oxide) 400 mg PO BID [facility] Ondansetron HCl (Zofran) 4 mg IVP Q6H PRN PRN Reason: Nausea/Vomiting use 1st Last Admin: 02/17/20 18:36 Dose: 4 mg Pantoprazole Sodium (Protonix) 40 mg PO DAILY [facility] Last Admin: 02/28/20 08:20 Dose: 40 mg Rosuvastatin Calcium (Crestor) 10 mg PO HS [facility] Last Admin: 02/27/20 21:24 Dose: 10 mg Senna/Docusate Sodium (Senokot S) 2 tab PO BID PRN PRN Reason: Constipation Last Admin: 02/28/20 14:59 Dose: 2 tab Simethicone (Mylicon Chewable) 80 mg PO PCHS PRN PRN Reason: Gas Pain Last Admin: 02/17/20 22:48 Dose: 80 mg Sodium Chloride (Flush - Normal Saline) 10 ml IVF Q12HR [facility] Last Admin: 02/28/20 08:21 Dose: 10 ml Sodium Chloride (Flush - Normal Saline) 10 ml IVF PRN PRN PRN Reason: Saline Flush Spironolactone (Aldactone) 25 mg PO QAM [facility] Last Admin: 02/28/20 08:20 Dose: 25 mg Spironolactone (Aldactone) 50 mg PO QPM [facility] Last Admin: 02/27/20 21:25 Dose: 50 mg Vital Signs & Weight: Vital Signs Temp Pulse Resp BP BP Pulse Ox 02/28/20 11:30 98.3 F 73 16 93/53 L 95 02/28/20 08:30 98.7 F 72 14 108/57 L 93 L 02/28/20 05:00 98.1 F 70 18 111/56 L 97 Admit Weight 123 lb 11.2 oz Weight 123 lb 0.287 oz - Physical Exam General: alert & oriented x3 HEENT: mucus membranes moist Neck: supple neck Cardiac: regular rate and rhythm, S1/S2 Lungs: decreased breath sounds Extremities: no edema - Labs Result Diagrams: 02/28/20 04:50 02/28/20 04:50 Troponin/CKMB CK-MB (CK-2) 1.7 ng/mL (0-6.6) 02/15/20 20:04 Troponin I 0.229 ng/mL (< 0.028) H 02/16/20 13:26 - Telemetry Sinus rhythms and dysrhythmias: sinus rhythm - Assessment/Plan Assessment/Plan: 1. 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 Amyloidosis - Per Dr Moreno at [facility], the pt is not good candidate for medical tx; Plan to tx to [facility] for urgent heart transplant 3. Hypotension - stable VS with off dobutamine drip; 4. Aflutter - converted back to SR on 02/21/2020; well controlled HR with Amiodarone taper (Amiodarone 200 mg BID since 02/24/2020) 5. CKD - improving. 6. UTI - on ABX IV 7. Hx of CVA - on Plavix and ASA 8. mod MR 9. Lupus 10. COVID 19 positive MAR reviewed * Still waiting on a bed for transfer.
[2020-02-28] MEDS: Rosuvastatin 10 MG TAB PO SCH (21:00)
[2020-02-29 00:41] VITALS: BP 110/56; TEMP 99
[2020-02-29] MEDS: Acetaminophen 325 MG TAB PO PRN (02:25)
== END 2020-02-28 02:32 | disposition short-term general hospital (02) | DRG 871 ==
LOC: ERS 19:21 → 2NO 23:22 → 2SW 02-16 02:10 → CCU 02-17 10:21 → 2SW 02-21 21:28
PROVIDERS: ADMIT Internal Medicine; ATTEND Internal Medicine
PROC: 05H533Z Insertion of Infusion Device into Right Subclavian Vein, Percutaneous Approach (ICD-10-PCS; 2020-02-17)
PROC: 02HV33Z Insertion of Infusion Device into Superior Vena Cava, Percutaneous Approach (ICD-10-PCS; principal; 2020-02-26)
PROC: B548ZZA Ultrasonography of Superior Vena Cava, Guidance (ICD-10-PCS; 2020-02-26)
PROC: 8E0ZXY6 Isolation (ICD-10-PCS; 2020-02-26)
DX: A41.9 Sepsis, unspecified organism (principal); I50.43 Acute on chronic combined 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; R57.0 Cardiogenic shock; U07.1 COVID-19; J12.89 Other viral pneumonia; I13.0 Hypertensive heart and chronic kidney disease with heart failure and stage 1 through stage 4 chronic kidney disease, or unspecified chronic kidney disease; N39.0 Urinary tract infection, site not specified; E87.2 Acidosis; I48.92 Unspecified atrial flutter; R44.3 Hallucinations, unspecified; I42.8 Other cardiomyopathies; R64 Cachexia; E85.4 Organ-limited amyloidosis; I43 Cardiomyopathy in diseases classified elsewhere; Z51.5 Encounter for palliative care; I08.1 Rheumatic disorders of both mitral and tricuspid valves; I25.10 Atherosclerotic heart disease of native coronary artery without angina pectoris; E78.5 Hyperlipidemia, unspecified; M10.9 Gout, unspecified; N18.3 Chronic kidney disease, stage 3 (moderate); K21.9 Gastro-esophageal reflux disease without esophagitis; Z96.652 Presence of left artificial knee joint; Z86.73 Personal history of transient ischemic attack (TIA), and cerebral infarction without residual deficits; Z90.710 Acquired absence of both cervix and uterus; Z98.42 Cataract extraction status, left eye; Z98.41 Cataract extraction status, right eye; Z90.49 Acquired absence of other specified parts of digestive tract; Z87.891 Personal history of nicotine dependence; Z68.23 Body mass index [BMI] 23.0-23.9, adult
CPT/HCPCS: 36415; 36416; 36569; 70450; 71045; 80048; 80053; 80202; 81003; 81015; 82553; 83605; 83690; 83735; 83880; 84443; 84484; 85025; 85027; 87040; 87077; 87086; 87186; 87324; 87449; 87635; 93005; 96365; 96375; 97139; C1751; J0282; J0692; J1250; J1650; J1940; J2260; J2405; J2543; J3370; J3475; J3490; J7050; J7070; J8540; Q0163; U0003